=== PATIENT | female | born 1990 | race Caucasian/White ===

== ENCOUNTER 2023-02-05 00:20 | Emergency (ER) | payer OTHER, MEDICAID, SELFPAY ==
[2023-02-05] VITALS (81 sets, daily range): BP systolic 70–124; BP diastolic 41–101; PULSE 88–124; RESP 11–30; TEMP 36.8–37.9; O2SAT 88–100
--- NOTE | ~2023-02-05 | XR_ITS ---
EXAMINATION: XR chest 2V DATE: 02/05/2023 09:48 INDICATION: Sepsis. Fever. Hypotension. TECHNIQUE: Frontal and lateral views of the chest were obtained. COMPARISON: Chest single view 08/26/2015 FINDINGS: There is mild atelectasis in right perihilar region. No pleural effusion or pneumothorax. T he heart size is normal. There is sclerosis in left humeral head. There is sclerosis in right scapula . There is a right internal jugular port with tip at superior cavoatrial junction. There are surgical changes of the cervical spine. IMPRESSION: 1. Mild atelectasis in right perihilar region. 2. Sclerotic lesions of bone suspicious for metastatic breast cancer. Reviewed, dictated and finalized at location A.
--- NOTE | ~2023-02-05 | CT_ITS ---
EXAMINATION: CT brain wo con DATE: 02/05/2023 09:49 INDICATION: Altered mental status. TECHNIQUE: Computed tomography (CT) of the head was performed without intravenous contrast. The mA wa s adjusted according to patient size. Iterative reconstruction technique was employed. The dose-lengt h product was 983.67 mGy-cm. COMPARISON: None FINDINGS: There is no intracranial hemorrhage, acute infarction, or abnormal intracranial mass lesion . The ventricles are normal in size. The orbits are normal. The paranasal sinuses are clear. The mast oid air cells are normal. IMPRESSION: 1. Normal brain. Reviewed, dictated and finalized at location A. IMPRESSION: 1. Normal brain.
--- NOTE | 2023-02-05 01:02 | ED.AMS ---
HPI - Altered Mental Status General Chief Complaint: Altered Mental Status Stated Complaint: Septic Source: family and EMS Mode of arrival: ambulatory History of Present Illness HPI narrative: Patient is a 33 year old female with a significant PMH that presents today with altered mental status. She has a 6 history could be metastatic brain cancer and hip fracture and recent surgery on her neck. She was seen at [facility] last week for the surgery and they were found she also had the fractured hip. She has been treated with chemo month ago and did not get her most recent chemo treatment because of the surgery. She was sent home from that she only has a 14-year-old son at home to take care of her. She came with altered mental status and was found in the shower by her 14-year-old son unconscious and not know where she was. She was trembling when she came in was unresponsive. She had a blood pressure and was unstable in the ambulance on the way here. complaint: altered mental status Onset (ago): hour(s) Time: 23:00 Timing confirmed by: family member Severity: severe Consistency of symptoms: waxing and waning Context: change in medication and trauma Associated symptoms: malaise Related Data Allergies Allergy/AdvReac Type Severity Reaction Status Date / Time Penicillins Allergy Unknown Other Verified 02/05/23 00:32 Review of Systems Review of Systems: All systems reviewed & are unremarkable except as noted in HPI and below Constitutional: Constitutional: Reports as per HPI Eyes: Eyes: Reports as per HPI ENT: Reports as per HPI Cardiovascular: Cardiovascular: Reports no additional cardiovascular complaints Respiratory: Respiratory: Reports no additional respiratory complaints Gastrointestinal: Gastrointestinal: Reports no additional gastrointestinal complaints Musculoskeletal: Musculoskeletal: Reports no additional musculoskeletal complaints Neurologic: Reports as per HPI [facility] Family History Family History Other Family history of cardiovascular disease Social History Social History Smoking status: Never smoker Alcohol intake: never Exam Narrative: Patient was barely responsive on initial examination IV fluids run wide open and blood pressure increased to being stable, patient was still barely conscious not able to answer questions. After giving dose of Narcan she immediately became coherent and was able to answer questions and is speaking normally now. She is talking with family members now in speaking normal. Const: General: confusion Other: Was incoherient not responsive. HENMT: Head: normal to inspection Ears: external ears normal Face/Nose/Sinus: Normal external nose present Face and sinus: normal facial exam Eyes: Other: She was 1st for non dilated and nonreactive, after given narcan pupils became responsive Neck: Neck: normal visual inspection Chest: Chest palpation & inspection: normal inspection of the chest Resp: Effort & Inspection: normal respiratory effort Auscultation: clear to auscultation bilaterally Cardio: Rate: regular rate Rhythm: regular rhythm GI: GI Palp: Yes Soft to palpation Back/Spine/Pelvis: Back: no CVA tenderness Skin: General skin exam: normal color Rashes: no rashes Neuro: Other: patient was not oriented to person place or time initial evaluation, after given Narcan she is now oriented x3 Extrem: General: normal to inspection Course Reevaluation(s) Reevaluation #1: history given dose of Narcan patient became responsive and is able to be oriented x3 and is responding able to and responsive. Date: 02/05/23 Time: 01:17 Vital Signs Vital signs: Vital Signs Temperature 100.3 F H 02/05/23 00:35 Pulse Rate 124 H 02/05/23 00:35 Respiratory Rate 18 02/05/23 00:35 Blood Pressure 124/101 H
[2023-02-05] MEDS: NALOXONE HCL 0.4 MG/ML VIAL IV PUSH (01:10)
[2023-02-05] MEDS: SODIUM CHLORIDE 0.9% IV 1,000 ML 999 ML IV CONT (01:10)
--- NOTE | 2023-02-05 01:55 | PC.NURSE ---
Pt's mother information Cyndie [phone]
--- NOTE | 2023-02-05 08:00 | PC.NURSE ---
Patient's blood pressure is down to 77/67, erp is notified, verbal order for Continuous NS 100/hr ordered.
--- NOTE | 2023-02-05 08:10 | PC.NURSE ---
RN went in patient's room to start IV fluids, patient is in personal T-shirt, RN attempted to get patient changed into gown and she refused. Patient assisted with repositioning and bed and access blankets removed from under patient.
[2023-02-05] MEDS: SODIUM CHLORIDE 0.9% IV 1,000 ML 100 ML IV CONT (08:25)
--- NOTE | 2023-02-05 08:42 | PC.NURSE ---
Spoke with [facility] transfer line. Updated set of vitals and patient update.
--- NOTE | 2023-02-05 08:54 | ECG_ITS ---
Measurements Intervals [place] Rate: 95 P: 24 PA: 144 QRS: 19 QRSD: 99 T: 30 QT: 385 QTc: 484 Interpretive Statements SINUS RHYTHM Electronically Signed On 02-05-2023 17:12:49 CDT by Pepe Sawyer M.D.
[2023-02-05 09:11] LABS: Basophils Absolute Auto 0.03 K/mm3 (0.00-0.10); Basophils Percent Auto 0.4 % (0.0-1.0); Eosinophils Absolute Auto 0.29 K/mm3 (0.02-0.50); Eosinophils Percent Auto 4.1 % (1.0-6.0); Hemoglobin 7.6 g/dL (12.0-15.0); Immature Granulocyte Absolute 0.04 K/mm3 (0.00-0.00); Immature Granulocyte Percent A 0.6 % (0.0-0.0); Lymphocytes Absolute Auto 0.73 K/mm3 (1.10-4.50); Lymphocytes Percent Auto 10.4 % (18.0-42.0); Mean Corpuscular HGB Conc 31.7 g/dL (32.0-36.0); Mean Corpuscular Hemoglobin 28.9 pg (27.0-31.0); Mean Corpuscular Volume 91.3 fL (78.0-102.0); Mean Platelet Volume 10.2 fl (9.2-11.8); Monocytes Absolute Auto 0.57 K/mm3 (0.10-0.90); Monocytes Percent Auto 8.1 % (2.0-11.0); Neutrophils Absolute Auto 5.3 K/mm3 (1.7-7.2); Neutrophils Percent Auto 76.4 % (50.0-70.0); Platelet Count Result 179 K/mm3 (150-420); Red Blood Count 2.63 M/mm3 (4.20-5.40); Red Cell Distribution Width 18.4 % (11.6-14.4)
--- NOTE | 2023-02-05 09:12 | PC.NURSE ---
Cathryn Agee verified home medications over the phone. phone number is [phone]
--- NOTE | 2023-02-05 09:14 | ED.AMS ---
HPI - Altered Mental Status General Chief Complaint: Altered Mental Status Stated Complaint: Septic Time Seen by Provider: 02/05/23 09:14 Source: family and EMS Mode of arrival: ambulatory History of Present Illness HPI narrative: Patient was signed out to me by the night physician. Patient came in last night with CC of AMS. Patient is on high dose dilaudid at home and was given Narcan after which she became more alert. No other work ups were done at that time. Pt was resuscitated with 1L IVF for low BP. during my shift, pt's BP continues to be low, 90/56 manual. Reviewed vitals from last night revealed patient was hypotensive, tachycardic and had a temp of 100.3F on arrival. Patient has breast cancer, undergoing treatment, and has a port on the right side. Sepsis work ups started. MD complaint: altered mental status Severity: severe Associated symptoms: malaise Related Data Home Medications Medication Instructions Recorded Confirmed cyclobenzaprine 10 mg tablet 10 mg PO TID PRN Muscle Spasm 02/05/23 02/05/23 fentanyl 12 mcg/hr transdermal 12 mcg topical Q3-4D 02/05/23 02/05/23 patch fentanyl 75 mcg/hr transdermal 75 patch topical Q3-4D 02/05/23 02/05/23 patch gabapentin 600 mg tablet 600 mg PO TID 02/05/23 02/05/23 hydromorphone 8 mg tablet 8 mg PO Q6-8H PRN Pain 02/05/23 02/05/23 mirtazapine 15 mg tablet 15 mg PO HS 02/05/23 02/05/23 ondansetron HCl 8 mg tablet 8 mg PO Q8H PRN Nausea And Vomiting 02/05/23 02/05/23 pantoprazole 40 mg tablet,delayed 40 mg PO DAILY 02/05/23 02/05/23 release prochlorperazine maleate 10 mg 10 mg PO DAILY 02/05/23 02/05/23 tablet ramelteon 8 mg tablet 8 mg PO HS 02/05/23 02/05/23 venlafaxine 75 mg capsule,extended 75 mg PO DAILY 02/05/23 02/05/23 release 24 hr Allergies Allergy/AdvReac Type Severity Reaction Status Date / Time Penicillins Allergy Severe Anaphylaxis Verified 02/05/23 09:44 cinnamon Allergy Unknown Verified 02/05/23 09:44 Review of Systems Constitutional: Constitutional: Reports as per HPI and Reports no additional constitutional complaints Eyes: Eyes: Reports as per HPI and Reports no additional eye complaints ENT: Reports system reviewed and no additional complaints, except as documented and Reports as per HPI Cardiovascular: Cardiovascular: Reports as per HPI and Reports no additional cardiovascular complaints Respiratory: Respiratory: Reports as per HPI and Reports no additional respiratory complaints Gastrointestinal: Gastrointestinal: Reports as per HPI and Reports no additional gastrointestinal complaints Genitourinary: Genitourinary: Reports as per HPI Musculoskeletal: Musculoskeletal: Reports no additional musculoskeletal complaints and Reports as per HPI Integumentary/Breasts: Skin/Breast: Reports system reviewed and no additional complaints, except as docu and Reports as per HPI Neurologic: Reports system reviewed and no additional complaints, except as documented and Reports as per HPI Psychiatric: Psychiatric: Reports no additional psychiatric complaints and Reports as per HPI Endocrine: Endocrine: Reports no additional endocrine complaints and Reports as per HPI Hematologic/Lymphatic: Hematologic/Lymphatic: Reports no additional hematologic/lymphatic complaints and Reports as per HPI Allergic/Immunologic: Allergic/Immunologic: Reports no additional allergic/immunologic complaints and Reports as per HPI [facility] Family History Family History Other Family history of cardiovascular disease Social History Social History Smoking status: Never smoker Alcohol intake: never Exam Const: General: cooperative, comfortable, no acute distress, awake and average body habitus Orientation/consciousness: oriented to person HENMT: Head: normal to inspection Ears: hearing grossly normal bilaterally, external ears normal and TM's normal b
[2023-02-05] MEDS: LACTATED RINGERS 1,000 ML 999 ML IV CONT (09:17)
--- NOTE | 2023-02-05 09:17 | PC.NURSE ---
patient taken down to CT.
[2023-02-05 09:26] LABS: INR 1.1; Partial Thromboplastin Time 35.9 SEC (23.90-30.70); Prothrombin Time 11.8 Seconds (9.50-12.10)
--- NOTE | 2023-02-05 09:30 | PC.NURSE ---
RN spoke with mother to clarify allergy to penicillin, states when patient was a baby she swelled up and was covered in a rash.
[2023-02-05 09:32] LABS: Lactic Acid Reflex 0.6 mmol/L (0.4-2.0)
[2023-02-05 09:35] LABS: Alanine Aminotransferase 60 U/L (14-59); Albumin Level 2.7 g/dL (3.4-5.0); Alkaline Phosphatase 224 U/L (46-116); Anion Gap 10 mmol/L (8-16); Aspartate Amino Transferase 143 U/L (15-37); Bilirubin,Total 0.3 mg/dL (0.00-1.00); Blood Urea Nitrogen 13 mg/dL (7-18); CRP 4.9 mg/dL (0.0-0.9); Carbon Dioxide 25 mmol/L (21-32); Chloride 104 mmol/L (98-108); Estimated CRCL calculation 50 ml/min; Estimated Glomerular Filt Rate 37; Glucose 89 mg/dL (70-99); Osmolality Calculated 287 mOsm/kg (285-295); Potassium 4.1 mmol/L (3.5-5.1); Sodium 139 mmol/L (136-145); Total Protein 5.9 g/dL (6.4-8.2)
--- NOTE | 2023-02-05 09:49 | PC.NURSE ---
patient back in room from ct.
--- NOTE | 2023-02-05 11:15 | PC.NURSE ---
patient was able to urinate at this time. UA sent to lab, blood cultures have been drawn, RN to start antibiotics.
[2023-02-05] MEDS: CIPROFLOXACIN 400 MG/D5W 200ML 200 ML 200 MG IVPB (11:18)
[2023-02-05 11:29] LABS: Appearance Urine Clear (Clear); Bilirubin Urine Negative (Negative); Blood Urine 3+ (Negative); Color Urine Light Yellow (Yellow); Glucose Urine UA Negative (Negative); Ketones Urine Negative (Negative); Leukocyte Esterase Ur Negative LEU/UL (Negative); Nitrate Urine Negative (Negative); Protein Urine Trace (Negative); Specific Grav Ur 1.015 (1.010-1.020); Urobilinogen Urine 0.2 mg/dL (0.2-1.0)
[2023-02-05 11:33] LABS: Add Urine Microscopic? YES; Bacteria Urine Trace /hpf; Squamous Epithelial Cell Urine Rare /hpf (Few); WBC Urine 0-3 /hpf (0-3)
--- NOTE | 2023-02-05 12:10 | PC.NURSE ---
Vancomycin dosage not available down in ER. RN waiting on charge nurse to bring down from 2nd floor.
--- NOTE | 2023-02-05 12:50 | PC.NURSE ---
Patient moved to room 6. Placed in hospital bed. IV vancomycin brought down from 2nd floor, will start after patient gets settled.
[2023-02-05] MEDS: VANCOMYCIN 1,250 MG/NS 250 ML 1,250 MG/250 ML BAG 166.67 MG IVPB (12:56)
[2023-02-05] MEDS: VANCOMYCIN 1,000 MG/NS 250 ML 1,000 MG/250 ML BAG 250 MG IVPB (14:18)
--- NOTE | 2023-02-05 17:23 | PC.NURSE ---
PER ERP START D5/NS WHEN NS INFUSION IS FINISHED.
[2023-02-05] MEDS: DEXTROSE 5%/0.9% SOD CHL 1,000 ML 125 ML IV CONT (18:28)
--- NOTE | 2023-02-08 16:26 | PC.NURSE ---
Addendum entered by Deon Quiroz RN 02/08/23 16:43: DR MCCOY FAX # [phone] DR MCCOY RN # [phone] Original Note: PRELIMINARY AEROBIC BLOOD CULTURE RESULTS: ISOLATE 1: GRANULICATELLA ADIACENS. SUSCEPTIBILITY TESTING NOT ROUTINELY PERFORMED ON THIS ISOLATE. PRELIMINARY ANAEROBIC RESULTS: ISOLATE 1: GRAM POSITIVE COCCI ISOLATED IN ANAEROBIC BOTTLE ONLY. TO AWAIT C&S. PT WAS TRANSFERRED TO [facility] ROOM 19613-4. SPOKE WITH [facility], PT HAS BEEN DC HOME. CALLED DR DEY, HE IS LISTED PMD. SPOKE WITH RAZIA IN HIS OFFICE AND SHE REPORTS THEY HAVE NOT SEEN PT SINCE 2019. CALLED PERSON TO NOTIFY BEVERLEY, WHO REPORTS HE IS NO LONGER ASSOCIATED WITH PT. LEFT MESSAGE ON MOTHER-PARTH'S PHONE TO CONTACT ER IN AN ATTEMPT TO IDENTIFY PMD. MOTHER RETURNS CALL, REPORTS DR DEY IS PT PMD, HOWEVER ADVISED THAT SHE DOES NOT SEE HIM SINCE SHE HAS BEEN BEING TAKEN CARE OF AT [facility] FOR CANCER. MOTHER PROVIDES PT ONCOLOGIST INFORMATION. DR MCCOY [phone]. SPOKE WITH BENITO AT DR MCCOY'S OFFICE WHO PROVIDED FAX NUMBER AND DR MCCOY'S RN MARKUS'S PHONE NUMBER. RESULTS WERE FAXED TO [phone], CONFIRMATION WAS RECEIVED. CALLED SKYE APARICIO [phone] LEFT A MESSAGE ON HER EXTENSION WITH CALL BACK INFORMATION PROVIDED. MOTHER IS AWARE THAT THESE ARE PRELIMINARY, AND THIS RN CANNOT ACCESS TX AT [facility]. MOTHER ADVISED TO FOLLOW WITH DR MCCOY FOR FURTHER TX OF RESULTS, AND THAT THE FINAL RESULTS WILL NOT BE IN UNTIL 02/10. MOTHER REPORTS PT HAS A FOLLOW UP APPOINT ON 02/10 AT [facility] AND SHE WILL FOLLOW UP ON THE BLOOD CULTURE RESULTS AT THAT TIME. JOSE FROM DR MCCOY'S OFFICE RETURNS CALL TO CONFIRM RECEIPT OF CULTURE RESULTS, STATES PT HAS FOLLOW UP WITH [facility] ON 02/10 AT 1200. IF RESULTS HAVE NOT BEEN FAXED TO DR MCCOY BY TIME OF APPOINTMENT, THEY WILL CONTACT THIS ER FOR FINAL RESULTS TO TREAT PT.
--- NOTE | 2023-02-08 17:19 | PC.NURSE ---
JOSE FROM DR MCCOY'S OFFICE CALLS, REPORTING SHE DID NOT RECEIVE THE RESULTS. VERBAL RESULTS AND TX THAT WAS COMPLETED AT [facility] WERE PROVIDED OVER THE PHONE, WELL FAXED FOR A 2ND TIME.
--- NOTE | 2023-02-08 18:23 | PC.NURSE ---
PT CALLS REPORTING DR MCCOY'S OFFICE CALLED HER AND TOLD HER TO RETURN TO [facility] FOR ADMISSION FOR IV ABX. DR MCCOY'S OFFICE REPORTED PT DID NOT RECEIVE ABX WHILE IN PT AT [facility]. PT REPORTS SHE ACTUALLY DID RECEIVE IV ABX DURING HER STAY. PT REPORTS SHE IS FEELING MUCH BETTER, DENIES ANY FEVER. PT WAS NOT DC HOME WITH ANY ABX. PT IS TO RETURN CALL TO DR MCCOY'S EXCHANGE AND MAKE A DECISION TO WHAT SHE WOULD LIKE TO DO. PT REPORTS SHE HAS A FOLLOW UP IN 2 DAYS AT [facility].
--- NOTE | 2023-02-10 13:31 | PC.NURSE ---
FINAL BLOOD CULTURE REPORT FAXED OVER TO DR. MCCOY'S RN MARKUS AT [phone]. SEE PREVIOUS NOTE FROM 02/08/2023 ABOUT FOLLOW UP AND PLAN OF CARE FOR TREATMENT OF CULTURES.
--- NOTE | 2023-02-10 16:00 | PC.NURSE ---
DR MCCOY NURSE MARKUS CALLED BACK AND STATES THEY RECIEVED THE BLOOD CULTURES, PATIENT IS AT THE OFFICE AND THEY ARE TREATING ACCORDINGLY.
--- NOTE | 2023-02-12 12:51 | PC.NURSE ---
final [facility] culture reports x2 reviewed. granulicatella adiacens, staphylococcus warneri, and actinomyces neuii reported. pt was transferred to [facility]. [facility] marketing operations coordinator contacted...pt discharged on 02/08. pt contacted et states no abx sent on discharge. has appt with oncology on 02/14. states blood cultures at [facility] were negative. declines further treatment for this report at this time.
== END 2023-02-05 18:45 | disposition short-term general hospital (02) ==
PROVIDERS: Emergency Provider Emergency Medicine; PCP Internal Medicine
DX: A41.9 Sepsis, unspecified organism (principal); R65.21 Severe sepsis with septic shock; N17.9 Acute kidney failure, unspecified; R41.82 Altered mental status, unspecified; C50.919 Malignant neoplasm of unspecified site of unspecified female breast; C79.51 Secondary malignant neoplasm of bone; Z79.899 Other long term (current) drug therapy
CPT/HCPCS: 70450; 71046; 80053; 81001; 83605; 85025; 85610; 85730; 86140; 87040; 87147; 87186; 93005; 96361; 96365; 96366; 96367; 96375; 99291; J0744; J2310; J3370; J7030; J7042; J7120

== ENCOUNTER 2023-07-04 07:06 | Emergency (ER) | payer OTHER, SELFPAY ==
[2023-07-04 07:06] VITALS: BP 108/80; PULSE 93; RESP 16; TEMP 36.9; O2SAT 100
--- NOTE | 2023-07-04 08:05 | ED.LOWEXIN ---
HPI - Extremity Injury (Lower) General Chief Complaint: Extremity Injury, Lower Stated Complaint: right knee pain Time Seen by Provider: 07/04/23 07:15 Source: patient Mode of arrival: ambulatory History of Present Illness HPI Narrative: Patient is a 33-year-old female with a significant past medical history presents today for right knee pain. Patient states that she has bone cancer and she states has spread to out her foam system through multiple bones. She says she also has a broken hip from this metastatic cancer. She has she also has a left shoulder fracture well. She is worrying that her right knee has fractured because she fell on it and her need. She said it is very painful. She does wear a fentanyl patch at home. complaint: knee injury Onset (ago): hour(s) Injury: Right: knee Type of Injury: blunt Place: home Severity: severe Severity scale (1-10): 8 Relieving factors: nothing Exacerbating factors: nothing Context: fall and direct blow Other symptoms: none Treatments prior to arrival: cold therapy and NSAIDS Related Data Home Medications Medication Instructions Recorded Confirmed mirtazapine 15 mg tablet 15 mg PO HS 02/05/23 07/04/23 ondansetron HCl 8 mg tablet 8 mg PO Q8H PRN Nausea And Vomiting 02/05/23 07/04/23 pantoprazole 40 mg tablet,delayed 40 mg PO DAILY 02/05/23 07/04/23 release apixaban 5 mg tablet (Eliquis) 5 mg PO BID 07/04/23 07/04/23 scopolamine base 1 mg over 3 days 1 patch transdermal Q3D 07/04/23 07/04/23 transdermal patch venlafaxine 37.5 mg 37.5 mg PO DAILY 07/04/23 07/04/23 capsule,extended release 24 hr zolpidem 5 mg tablet 5 mg PO HS PRN Insomnia 07/04/23 07/04/23 Allergies Allergy/AdvReac Type Severity Reaction Status Date / Time Penicillins Allergy Severe Anaphylaxis Verified 07/04/23 07:43 cinnamon Allergy Unknown Verified 07/04/23 07:43 Review of Systems Review of Systems: All systems reviewed & are unremarkable except as noted in HPI and below Constitutional: Constitutional: Reports as per HPI and Reports no additional constitutional complaints Eyes: Eyes: Reports no additional eye complaints ENT: Reports system reviewed and no additional complaints, except as documented Cardiovascular: Cardiovascular: Reports no additional cardiovascular complaints Respiratory: Respiratory: Reports no additional respiratory complaints Gastrointestinal: Gastrointestinal: Reports no additional gastrointestinal complaints Genitourinary: Genitourinary: Reports no additional female genitourinary complaints Musculoskeletal: Musculoskeletal: Reports as per HPI, Reports arthralgias and Reports joint swelling Comments: Right knee Integumentary/Breasts: Skin/Breast: Reports system reviewed and no additional complaints, except as docu Neurologic: Reports system reviewed and no additional complaints, except as documented Psychiatric: Psychiatric: Reports no additional psychiatric complaints Endocrine: Endocrine: Reports no additional endocrine complaints Hematologic/Lymphatic: Hematologic/Lymphatic: Reports no additional hematologic/lymphatic complaints Allergic/Immunologic: Allergic/Immunologic: Reports no additional allergic/immunologic complaints [facility] Family History Family History Other Family history of cardiovascular disease Social History Social History Smoking status: Never smoker Alcohol intake: never Exam Const: General: healthy appearing Nutritional Appearance: well nourished Orientation/consciousness: patient oriented x3 HENMT: Head: normal to inspection Ears: external ears normal Face/Nose/Sinus: Normal external nose present Face and sinus: normal facial exam Mouth: Yes Normal oral and palatal mucosa present Eyes: Conjunctivae: conjunctivae normal Pupils: Equal, round and reactive pupils present EOM: EOMs intact bilaterally
[2023-07-04 08:28] VITALS: BP 102/78; PULSE 90; RESP 16; O2SAT 99
== END 2023-07-04 08:32 | disposition home or self-care (01) ==
PROVIDERS: Emergency Provider Family Medicine; PCP Internal Medicine
DX: S83.91XA Sprain of unspecified site of right knee, initial encounter (principal); W19.XXXA Unspecified fall, initial encounter; C79.51 Secondary malignant neoplasm of bone
CPT/HCPCS: 73562; 99283

== ENCOUNTER 2024-06-08 14:50 | Emergency (ER) | payer OTHER, SELFPAY ==
--- OUTSIDE RECORDS SUMMARY | 2024-06-08 14:52 | XMS_ITS | Data Portability ---
Author Organization [facility], [address] [facility] ([place]) Address [address] 4[address] [place] [address] Care Team Providers Care Safety Officer Name Role Phone MAXWELL DEY Primary Care Provider PERLA ENGLAND Hematology/Oncology [phone] Assessment Encounter Date Assessment Date Assessment LastModified by Organization Details LastModified Time 04/13/2024 04/13/2024 HISTORY OF PRESE NT ILLNESS: Ms. Calderon is a pleasant 34-year-old female with a history of breast cancer diagnosed at age 29 who follows at [facility], is here for a second opinion and to establish care for management of the same. She has an extensive treatment history at [facility]. - She initially had a palpable left breast mass at the age of 29. Bilateral diagnostic mammogram on 03/23/2019 showed a spiculated mass in the left breast with abnormal lymph nodes (in the upper-outer quadrant). - 04/10/2020: Diagnostic mammogram and ultrasound showed an irregular, spiculated 2.3 cm mass with spiculations nearly 3.6 cm, with two enlarged lymph nodes, biopsy of which confirmed invasive ductal carcinoma grade 3, ER+ (7/8), AK+ (7/8), HER2 1+ by IHC. - She declined neoadjuvant chemotherapy in April 2019. She had seen Dr. Theresa Perera. - 05/31/2019: She underwent bilateral mastectomy with axillary lymph node excision, confirmed 3 cm IDC grade 3, negative LVI, negative margins, with DCIS grade 3, with 0 of 5 lymph nodes negative, T2 N0 M0. Right breast with no malignancy. She underwent immediate bilateral manager cosmetics reconstruction. - 06/15/2019: Oncotype DX 20. Declined adjuvant chemotherapy and AI+OS. -06/2019: Initiated on tamoxifen but discontinued after 4-5 months due to terrible mood changes. -01/10/2020: Developed local recurrence biopsy proven on left breast core biopsy at 3 o c lock invasive ductal carcinoma grade 2, ER+ (8/8), AK+ (7/8), HER2 1+ by IHC. =- 01/17/2020: Had left breast excision which confirmed a 1.1 cm invasive ductal carcinoma, grade 2 of 3, deep margins. She declined chemo at that time and agreed to start Zoladex for ovarian suppression. - 03/2020: Completed adjuvant chest wall and lymph nodes radiation. - 04/07/2020: Initiated on adjuvant anastrozole and Zoladex changed to q.3 months. Later switched to exemestane in June 2020 due to musculoskeletal symptoms. Exemestane was later discontinued from August through November. Eventually again started taking anastrozole in February 2021. Agreed to take exemestane again in May 2021, again discontinued. - Unfortunately, she eventually developed metastatic breast cancer in July 2021 with brain mets - cerebral, cerebellar hemispheres, dural metastasis, bone metastasis. - Underwent WBRT and palliative RT to thoracic and lumbar spine, completed on 09/11/2021. - 08/21/2021: Biopsy of right iliac bone showed metastatic carcinoma, ER strongly positive, AK strongly positive, HER2 1+, Ki-67 of 10%. Zoladex and letrozole were restarted on 09/17/2021, delaying the addition of abemaciclib until end of September 2021 due to multiple hospitalizations. Later switched to ribociclib on November 09, 2021, dose reduced to 400 mg due to diarrhea. Later, Zoladex switched to Lupron due to insurance changes. She continued on letrozole. -09/2021: PE, Extensive RLL PE- started on Eliquis. - Completed palliative XRT in May 2022 to the right posterior ribs for pain control. Stopped letrozole on August 02, 2022. Started Xeloda 1500 mg b.i.d., 7 days on, 7 days off, in July 2022. - 10/13/2022: T12 compression fracture, s/p IR kyphoplasty. - Later treatment was switched to Enhertu in December 2022. Cycle 1 complicated by colitis, ANC mango of 0.3. - 01/27/2023: Underwent C5 corpectomy due to pathologic fracture of C5 due to extensive involvement of metastatic disease and spinal cord compression. Enhertu dose reduced. - She had completed 15 cycles of Enhertu until it showed progression in the liver. - 01/16/2024: Treatment switched to capivasertib plus fulvestrant on 12/27/2023. Genomic testing- BRCA negative in 04/2019. VUS in NTHL1, PMS2. INTERVAL HISTORY: Today Yanet returns for followup prior to cycle [address] scans have shown concerns for progressive disease. Patient denied any nausea, abdominal pain, chest pain, or shortness of breath. She continues to work. She does complain of diarrhea, having to take Imodium occasionally to 8 capsules per day. This is intermittent. She has not tried Lomotil yet. She occasionally has blood in stools. REVIEW OF SYSTEMS: CONST: No fevers or chills. Fatigue. RESP: No shortness of breath. CV: No chest pain. GI: Diarrhea. : No urinary symptoms or frequency. MSK: Back pain, mostly in the hip and lower back, not all the time. Uses Extra Strength Tylenol. She was extremely sensitive to hydrocodone-APAP. Reviewed past medical history, surgical history, family history, social history. No changes except as noted. PAST MEDICAL HISTORY: Breast cancer, bone metastases, brain metastases, musculoskeletal issues, colitis as above. PAST SURGICAL HISTORY: , ectopic , ACL meniscus repair, appendectomy, double mastectomy, multiple plastic surgeries on breasts. FAMILY HISTORY: Invasive ductal carcinoma in grandmother in her 70s. 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 No alcohol use. PHYSICAL EXAMINATION: CONST: Overall is in usual health and no acute distress. RESP: Chest clear to auscultation. Respirations even and unlabored. CV: Heart regular rate and rhythm without murmur. GI: Abdomen soft without mass, tenderness, or hernia. PSYCH: Appropriate mood and affect. NEURO: No speech difficulty. Alert and orientated to person, place, and time. Reviewed pertinent diagnostic tests, lab work, and imaging. These were reviewed with the patient. IMAGIN03/26/2024 - CT CAP: Impression: 1. Interval progression of extensive hepatic metastatic disease 2. Progression of osseous metastatic disease. A bone scan has been ordered for today. 3. Areas of pleural parenchymal scarring in each lung, similar to the prior examinations. Addendum: Comparison is made to a previous outside CT scan 12/03/2023. There has been interval increase in the hepatic metastatic disease. For reference, a left hepatic lobe lesion at image 190 measures up to 1.8 cm. Previously this lesion measured up to 8 mm. A lesion at image 179 measures 1.9 cm. Previously this measured [address] appearance of the osseous metastatic disease is similar. Please refer to the bone scan performed on 04-17. ASSESSMENT AND PLAN: 1. Metastatic ER+/AK+/HER2- left breast cancer to the brain, bones. - Yanet has a complicated previous history. Her recent CT scans have been compared to previous scans done at [facility] in November. Unfortunately, she has progressive disease in the liver. Bone disease appears relatively stable. Will arrange for ultrasound-guided liver biopsy MARISSA to check for [facility] NGS studies to look for other targeted mutations. - She has progressed on several lines of treatment. We discussed about capecitabine. Per documentation, she was on it for at least 2 months; however, patient does not recall starting on it due to insurance issues. We will clarify this with [facility]. If she has not tried it, will start with capecitabine 1500 mg b.i.d. day 1 to 14, q. 21-day cycle. If she has been exposed to it in the past, she will benefit from IV sacituzumab govitecan day 1 to 8, q. 21-day cycle. She is leaning towards the capecitabine if possible given poor tolerance to IV infusions and also limitations with her job. - Regarding her diarrhea, check C. diff on the stool specimen today. If negative, will arrange for Lomotil in addition to Imodium. - Await CBC, CMP, CA 15-3 today. - Will arrange for a nurse navigator visit for chemo teaching and DPOA. She lives by herself. Has family around. This is her second visit and I have not met her family yet. I advised her to have her DPOA, advanced directives in place as well. She reports her sister (Monalisa) or Mom (Cyndie) will be her DPOA. - Arrange for IV Zometa q.4 weeks for the extensive bone metastasis. - Discussed about oxycodone 7.5/APAP 325 mg every 6 hours as needed for pain. - RTC with cycle 1 of treatment as soon as possible. I personally spent a total of >40 minutes on the patient on this date of service including both [id number]-[id number] and qkh-itig-ud-face time excluding any separately reportable services. Time was spent in reviewing previous records, confirming this with the patient again. The patient verbalized understanding of plan of care and will call us sooner if needed with any questions or concerns. aml leandro Not available 04/24/2024 07:41:29 05/17/2024 05/17/2024 HISTORY OF PRESE NT ILLNESS: Ms. Calderon is a pleasant 34-year-old female with a history of breast cancer diagnosed at age 29 who follows at [facility], is here for a second opinion and to establish care for management of the same. She has an extensive treatment history at [facility]. - She initially had a palpable left breast mass at the age of 29. Bilateral diagnostic mammogram on 03/23/2019 showed a spiculated mass in the left breast with abnormal lymph nodes (in the upper-outer quadrant). - 04/10/2020: Diagnostic mammogram and ultrasound showed an irregular, spiculated 2.3 cm mass with spiculations nearly 3.6 cm, with two enlarged lymph nodes, biopsy of which confirmed invasive ductal carcinoma grade 3, ER+ (7/8), AK+ (7/8), HER2 1+ by IHC. - She declined neoadjuvant chemotherapy in April 2019. She had seen Dr. Theresa Perera. - 05/31/2019: She underwent bilateral mastectomy with axillary lymph node excision, confirmed 3 cm IDC grade 3, negative LVI, negative margins, with DCIS grade 3, with 0 of 5 lymph nodes negative, T2 N0 M0. Right breast with no malignancy. She underwent immediate bilateral manager cosmetics reconstruction. - 06/15/2019: Oncotype DX 20. Declined adjuvant chemotherapy and AI+OS. -06/2019: Initiated on tamoxifen but discontinued after 4-5 months due to terrible mood changes. -01/10/2020: Developed local recurrence biopsy proven on left breast core biopsy at 3 o c lock invasive ductal carcinoma grade 2, ER+ (8/8), AK+ (7/8), HER2 1+ by IHC. - 01/17/2020: Had left breast excision which confirmed a 1.1 cm invasive ductal carcinoma, grade 2 of 3, deep margins. She declined chemo at that time and agreed to start Zoladex for ovarian suppression. - 03/2020: Completed adjuvant chest wall and lymph nodes radiation. - 04/07/2020: Initiated on adjuvant anastrozole and Zoladex changed to q.3 months. Later switched to exemestane in June 2020 due to musculoskeletal symptoms. Exemestane was later discontinued from August through November. Eventually again started taking anastrozole in February 2021. Agreed to take exemestane again in May 2021, again discontinued. - Unfortunately, she eventually developed metastatic breast cancer in July 2021 with brain mets - cerebral, cerebellar hemispheres, dural metastasis, bone metastasis. - Underwent WBRT and palliative RT to thoracic and lumbar spine, completed on 09/11/2021. - 08/21/2021: Biopsy of right iliac bone showed metastatic carcinoma, ER strongly positive, AK strongly positive, HER2 1+, Ki-67 of 10%. Zoladex and letrozole were restarted on 09/17/2021, delaying the addition of abemaciclib until end of September 2021 due to multiple hospitalizations. Later switched to ribociclib on November 09, 2021, dose reduced to 400 mg due to diarrhea. Later, Zoladex switched to Lupron due to insurance changes. She continued on letrozole. -09/2021: PE, Extensive RLL PE- started on Eliquis. - Completed palliative XRT in May 2022 to the right posterior ribs for pain control. Stopped letrozole on August 02, 2022. Started Xeloda 1500 mg b.i.d., 7 days on, 7 days off, in July 2022. - 10/13/2022: T12 compression fracture, s/p IR kyphoplasty. - Later treatment was switched to Enhertu in December 2022. Cycle 1 complicated by colitis, ANC mango of 0.3. - 01/27/2023: Underwent C5 corpectomy due to pathologic fracture of C5 due to extensive involvement of metastatic disease and spinal cord compression. Enhertu dose reduced. - She had completed 15 cycles of Enhertu until it showed progression in the liver. - 01/16/2024: Treatment switched to capivasertib plus fulvestrant on 12/27/2023. Genomic testing- BRCA negative in 04/2019. VUS in NTHL1, PMS2. PAST TREATMENT: 1. 05/2019: Bilateral mastectomy with axillary lymph node dissection. 2. 06/2019: Tamoxifen started discontinued in 4-5 months. 3. 12/2019: Recurrent disease confirmed on excision. Started Zoladex for ovarian suppression. 4. 03/2020: Adjuvant chest wall/radiation completed. 5. 04/07/202005/2021: Failed adjuvant anastrozole, exemestane July 2021 brain mets, s/p WBRT, palliative RT to thoracic and spine. 6. 10/2021: Initiated on ribociclib, letrozole. 7. 05/2022: Palliative XRT to right posterior ribs. 8. 07/2022: Xeloda 7 days on, 7 days off. 9. 12/2022: Enhertu. 10. 01/16/2024: Capivasertib plus fulvestrant. 11. 03/2024: Progression of disease confirmed on imaging. INTERVAL HISTORY: Today Yanet returns for follow-up visit. She started taking capecitabine two weeks ago and had severe nausea with it. She had two ER visits. She was given IV fluids. Zofran and Compazine did not help. Reglan helped. She stopped the medicine at her 14-day chica. She continues to have some bone pain, for which oxycodone/APAP helps. She continues to work. Her main pain is around the left shoulder, lower back pain which moves up front like a band. She takes two tabs of oxycodone/APAP which usually helps her. REVIEW OF SYSTEMS: CONST: No fevers or chills. Fatigue. RESP: No shortness of breath. CV: No chest pain. GI: Nausea as above. : No urinary symptoms or frequency. MSK: Back pain, mostly in the hip and lower back, not all the time. Uses Extra Strength Tylenol. She was extremely sensitive to hydrocodone-APAP. Reviewed past medical history, surgical history, family history, social history. No changes except as noted. PAST MEDICAL HISTORY: Breast cancer, bone metastases, brain metastases, musculoskeletal issues, colitis as above. PAST SURGICAL HISTORY: , ectopic , ACL meniscus repair, appendectomy, double mastectomy, multiple plastic surgeries on breasts. FAMILY HISTORY: Invasive ductal carcinoma in grandmother in her 70s. 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 No alcohol use. PHYSICAL EXAMINATION: CONST: Overall is in usual health and no acute distress. ECOG PS is 1. RESP: Chest clear to auscultation. Respirations even and unlabored. CV: Heart regular rate and rhythm without murmur. GI: Abdomen soft without mass, tenderness, or hernia. PSYCH: Appropriate mood and affect. NEURO: No speech difficulty. Alert and orientated to person, place, and time. Reviewed pertinent diagnostic tests, lab work, and imaging. These were reviewed with the patient. IMAGIN03/26/2024 - CT CAP: Impression: 1. Interval progression of extensive hepatic metastatic disease 2. Progression of osseous metastatic disease. A bone scan has been ordered for today. 3. Areas of pleural parenchymal scarring in each lung, similar to the prior examinations. =Addendum: Comparison is made to a previous outside CT scan 12/03/2023. There has been interval increase in the hepatic metastatic disease. For reference, a left hepatic lobe lesion at image 190 measures up to 1.8 cm. Previously this lesion measured up to 8 mm. A lesion at image 179 measures 1.9 cm. Previously this measured [address] appearance of the osseous metastatic disease is similar. Please refer to the bone scan performed on 04-17. 05/10/2024 CT CAP: Impression: 1. No evidence of aortic dissection or other acute aortic syndrome. 2. No CT evidence of post hepatic biopsy consultation. 3. No acute finding of the thoracic or lumbar spine. 4. Extensive metastatic disease throughout the liver and skeleton. ASSESSMENT AND PLAN: 1. Metastatic ER+/AK+/HER2- left breast cancer to the brain, bones, progressed on multiple lines of treatment. 2. 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 Repeat MRI brain in 3-4 months. 3. Bone metastasis. 4. Chemotherapy-relat ed nausea. 5. Cancer-related pain. - Yanet struggled with capecitabine. On further discussion, she believes she has taken capecitabine and also records confirm that. We will discontinue capecitabine at this time as she has poor tolerance and also had progressed on it previously. - I recommended IV sacituzumab govitecan day 1, 8, q. 21-day cycle until any disease progression or unacceptable side effects. Discussed about myelosuppression, GI toxicity, iatrogenic potential, electrolyte imbalances, etc. Will obtain prior authorization and will see her soon to start the treatments MARISSA. - She will continue on IV Zometa q.4 weeks for extensive bone metastases for now. - We also discussed about the potential need for looking into clinical trials. - [facility] NGS studies have been requested on the repeat liver biopsy which confirmed metastatic adenocarcinoma to the liver with breast primary. HER2 was 0. Hopefully, she will have additional actionable mutations on it. - RTC with cycle 1 with CBC, CMP I personally spent a total of 40 minutes on the patient on this date of service including both mmdp-wu-vhiw and ntk-givz-rz-face time excluding any separately reportable services. The patient verbalized understanding of plan of care and will call us sooner if needed with any questions or concerns. aml anayani Not available 05/21/2024 08:17:01 Plan of Treatment Reminders Order Date Submit Date Provider Last Modified By Organization Details Last Modified Time Details Appointments None recorded. Lab None recorded. Referral None recorded. Procedures None recorded. Surgeries None recorded. Imaging None recorded. Medication Orders olanzapine 5 mg tablet 2024 025 leandro [id number], [address], [place], [address], 12:50:03 fulvestrant 250 mg/5 mL intramuscul ar syringe 2023 024 [email or web address] 1 [id number], [address], [place], [address], 5 10:27:00 Patient TargetsNo targets recorded. Patient InstructionsNo instructions recorded. Reason for Referral None Reported. Results Created Date Observation Date Name Description Value Unit Range Abnormal Flag Note LastModifiedBy Organization Detail LastModifiedTime 04/13/2004/13/2024 CBC w/ auto diff CBC with differential Not Available [facility] - [facility] [address], [address], 04/13/2024 11:59:07 04/13/20 24 04/13/2024 CBC w/ auto diff WBC 4.9 K/uL 3.8-11 .2 Not Available [facility] [address] [place] [address], [id number], 04/13/2024 11:59:07 04/13/20 24 04/13/2024 CBC w/ auto diff RBC 4.03 M/uL 3.92-5 .10 Not Available [facility] [address] [place] [address], [id number], 04/13/2024 11:59:07 04/13/20 24 04/13/2024 CBC w/ auto diff HGB 11.4 g/dL 11.8-1 5.3 low Not Available [facility] [address] [place] [address], [id number], 04/13/2024 11:59:07 04/13/20 24 04/13/2024 CBC w/ auto diff HCT 34.1 % 36.5-4 4.8 low Not Available [facility] [address] [place] [address], [id number], 04/13/2024 11:59:07 04/13/20 24 04/13/2024 CBC w/ auto diff MCV 84.6 fL 80.0-9 9.0 Not Available [facility] [address] [place] [address], [id number], 04/13/2024 11:59:07 04/13/20 24 04/13/2024 CBC w/ auto diff MCH 28.3 pg 25.5-3 3.6 Not Available [facility] [address] [place] [address], [id number], 04/13/2024 11:59:07 04/13/20 24 04/13/2024 CBC w/ auto diff MCHC 33.4 g/dL 32.0-3 6.0 Not Available [facility] [address] [place] [address], [id number], 04/13/2024 11:59:07 04/13/20 24 04/13/2024 CBC w/ auto diff RDW-SD 40.2 fL 35.1 - 46.3 Not Available [facility] [address] [place] [address], [id number], 04/13/2024 11:59:07 04/13/20 24 04/13/2024 CBC w/ auto diff plt 279 K/uL 130-40 0 Not Available [facility] [address] [place] [address], [id number], 04/13/2024 11:59:07 04/13/20 24 04/13/2024 CBC w/ auto diff MPV 9.0 fL 9.3-12 .8 low Not Available [facility] [address] [place] [address], [id number], 04/13/2024 11:59:07 04/13/20 24 04/13/2024 CBC w/ auto diff sreekanth% 59.0 % not estab Not Available [facility] [address] [place] [address], [id number], 04/13/2024 11:59:07 04/13/20 24 04/13/2024 CBC w/ auto diff lym% 20.2 % not estab Not Available [facility] [address] [place] [address], [id number], 04/13/2024 11:59:07 04/13/20 24 04/13/2024 CBC w/ auto diff mono% 9.3 % not estab Not Available [facility] [address] [place] [address], [id number], 04/13/2024 11:59:07 04/13/20 24 04/13/2024 CBC w/ auto diff eos% 9.1 % not estab Not Available [facility] [address] [place] [address], [id number], 04/13/2024 11:59:07 04/13/20 24 04/13/2024 CBC w/ auto diff baso% 2.0 % not estab Not Available [facility] [address] [place] [address], [id number], 04/13/2024 11:59:07 04/13/20 24 04/13/2024 CBC w/ auto diff abs sreekanth 2.9 K/uL 1.8-7. 5 Not Available [facility] [address] [place] [address], [id number], 04/13/2024 11:59:07 04/13/20 24 04/13/2024 CBC w/ auto diff abs lym 1.0 K/uL 1.1-3. 3 low Not Available [facility] [address] [place] [address], [id number], 04/13/2024 11:59:07 04/13/20 24 04/13/2024 CBC w/ auto diff abs mono 0.5 K/uL 0.1-1. 0 Not Available [facility] [address] [place] [address], [id number], 04/13/2024 11:59:07 04/13/20 24 04/13/2024 CBC w/ auto diff abs eos 0.5 K/uL 0.0-0. 7 Not Available [facility] [address] [place] [address], [id number], 04/13/2024 11:59:07 04/13/20 24 04/13/2024 CBC w/ auto diff abs baso 0.1 K/uL 0.0-0. 2 Not Available [facility] [address] [place] [address], [id number], 04/13/2024 11:59:07 04/13/20 24 04/13/2024 CBC w/ auto diff imm. gran % 0.4 % 0-5 Not Available [facility] [address] [place] [address], [id number], 04/13/2024 11:59:07 04/13/20 24 04/13/2024 CBC w/ auto diff NRBC % 0.0 % 0.0-0. 2 Not Available [facility] [address] [place] [address], [id number], 04/13/2024 11:59:07 04/13/20 24 04/13/2024 vitam in D, 25-hy droxy , total , serum vitamin D 25-hydroxy totl 26.0 NG/mL 30.0-8 0.0 low Less than 20 ng/mL Defic iency 20-29 ng/mL Insuf ficie ncy 30-80 ng/mL Optim al Great er than 80 ng/mL Possi ble toxic ity Not Available [facility] [address] [place] [address], [id number], 04/13/2024 14:54:44 04/13/20 24 04/13/2024 CMP, serum or plasm a comp. met. panel Not Available [facility] [address] [place] [address], [id number], 04/13/2024 15:47:55 04/13/20 24 04/13/2024 CMP, serum or plasm a sodium 140 mmol/ L 136-14 6 Not Available [facility] [address] [place] [address], [id number], 04/13/2024 15:47:55 04/13/20 24 04/13/2024 CMP, serum or plasm a potassium 4.8 mmol/ L 3.5-5. 1 Not Available [facility] [address] [place] [address], [id number], 04/13/2024 15:47:55 04/13/20 24 04/13/2024 CMP, serum or plasm a chloride 105 mmol/ L 98-110 Not Available [facility] [address] [place] [address], [id number], 04/13/2024 15:47:55 04/13/2017 0404/13/2024 CMP, serum or plasm a CO2 26 mEq/L 20-32 Not Available [facility] [address] [place] [address], [id number], 04/13/2024 15:47:55 04/13/20 24 04/13/2024 CMP, serum or plasm a anion gap 14 mmol/ L 10-22 Not Available [facility] [address] [place] [address], [id number], 04/13/2024 15:47:55 04/13/20 24 04/13/2024 CMP, serum or plasm a glucose 79 mg/dL 70-100 Not Available [facility] [address] [place] [address], [id number], 04/13/2024 15:47:55 04/13/20 24 04/13/2024 CMP, serum or plasm a calcium 10.6 mg/dL 8.4-10 .4 high Not Available [facility] [address] [place] [address], [id number], 04/13/2024 15:47:55 04/13/20 24 04/13/2024 CMP, serum or plasm a total protein 6.9 g/dL 6.4-8. 3 Not Available [facility] [address] [place] [address], [id number], 04/13/2024 15:47:55 04/13/20 24 04/13/2024 CMP, serum or plasm a albumin 5.0 g/dL 3.5-5. 3 Not Available [facility] [address] [place] [address], [id number], 04/13/2024 15:47:55 04/13/20 24 04/13/2024 CMP, serum or plasm a ALP 99 U/L 44 - 127 Not Available [facility] [address] [place] [address], [id number], 04/13/2024 15:47:55 04/13/20 24 04/13/2024 CMP, serum or plasm a AST (SGOT) 26 U/L 10-40 Not Available [facility] [address] [place] [address], [id number], 04/13/2024 15:47:55 04/13/20 24 04/13/2024 CMP, serum or plasm a total bilirubin 0.2 mg/dL 0.2-1. 0 Not Available [facility] [address] [place] [address], [id number], 04/13/2024 15:47:55 04/13/20 24 04/13/2024 CMP, serum or plasm a ALT (SGPT) 20 U/L 8-35 Not Available [facility] [address] [place] [address], [id number], 04/13/2024 15:47:55 04/13/20 24 04/13/2024 CMP, serum or plasm a BUN 23 mg/dL 7-21 high Not Available [facility] [address] [place] [address], [id number], 04/13/2024 15:47:55 04/13/20 24 04/13/2024 CMP, serum or plasm a creatinine 0.8 mg/dL 0.7-1. 3 Not Available [facility] [address] [place] [address], [id number], 04/13/2024 15:47:55 04/13/20 24 04/13/2024 CMP, serum or plasm a GFR(non-afri can niuean) 86 Not Available [facility] [address] [place] [address], [id number], 04/13/2024 15:47:55 04/13/20 24 04/13/2024 CMP, serum or plasm a GFR() 104 (HANDER IN JESSICA KIDNE Y DISEA SE HAS A GFR LESS THAN 60 ML/SC N/1.7 3 MM FOR A PERIO D OF THREE MONTH S OR MORE. ) Not Available [facility] [address] [place] [address], [id number], 04/13/2024 15:47:55 04/13/20 24 04/13/2024 ca 15-3, serum Ca 15-3 248.5 U/mL <0.5-3 1.3 high This test is perfo rmed on a Sieme ns Atell ica uriel zer. Since there are not exist ing stand rajesh refer ence units , users shoul d not make gavin rison s betwe en metho ds. Not Available [facility] [address], [address], 04/13/2024 15:47:57 05/09/19 25 05/11/2024 SJS SURGI SEBLE PATHO LOGY path report [facility] atory Medic ine [address] [place] [address] [place] [address] Telep montse: , exten jessica 07 Patho logy Repor t Surgi seble Patho logy Repor t Name: OG RAYMOND EA N Speci men #: [id number] Age: [id number] (Age: 34) Locat ion: [facility] Sex: F Proce dure Date: 2024 Hospi sarai #: [id number] Date Recei melissa: 2024 Date Repor destiny: 2024 Provi pat: ARCHA DOV SIMMONS ART PA-C Sourc e: Liver , left, needl e biops y Clini seble Histo ry: Histo ry of breas t cance r FINAL DIAGN OSIS: Liver , ultra sound -guid ed needl e biops y: -[place] stati c adeno carci noma consi stent with breas t prima ry origi n. Diagn osis Comme nt: Immun ohist ochem ical stain s revea l the malig nant cells are posit shira for cytok erati n AE1/A E3, CK7, GATA3 , estro gen sprinkling truck driver tor, and proge stero ne sprinkling truck driver tor and have focal posit shira stain ing for mamma globi n. The malig nant cells are negat shira for BRST- 2, CK20, and HER2 (scor e 0). The findi ngs suppo rt the diagn osis of metas tatic adeno carci noma consi stent with breas t prima ry origi n. Gross Descr iptio n: Recei melissa in forma lowell, label ed with a patie nt label and not furth er desig nated , are 3 less than 0.[address] cores of white -mares tissu e, each 0.7-0 .8 cm in lengt h. Also recei melissa are 2 touch prepa ratio n slide s. The speci men submi tted in casse tte 1. Gross exami natio n (when appli cable ), inter preta tion, and sign out were perfo rmed at [facility], [address] [place] [address], [place] [address] . All immun ohist ochem ical and histo chemi seble tests were devel oped by and perfo rmed at [facility] , [address] [place] [address], [place] [address] . All tests repor destiny here have not been clear ed or appro melissa by the U.S. Food and Drug Admin istra tion (FDA) . This labor atory is regul ated under CLIA as quali fied to perfo rm high- compl exity testi ng. These tests are used for clini seble purpo ses. They shoul d not be regar ded as inves tigat ional or for resea rch. Posit shira and negat shira contr ols show appro priat e react ivity . Intra opera tive Diagn osis: Liver , needl e biops y, touch prepa ratio n immed iate evalu ation for adequ acy: -Epis ode #1, passe s #12: Adequ ate (Patr margie bryant MD). The immed iate onsit e evalu ation was perfo rmed and inter prete d at [facility] [place] 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 New numbne ss on left side of mouth and bottom lip for 6-8 months COMPAR SALVATORE: MRI brain . TECHNI QUE: This examin ation includ es T1-concha ghted images pre- and postco ntrast as well as T2-concha ghted, FLAIR, gradie nt-ech o, and diffus ion weight ed images . 15 mL of Dotare m gadoli nium were inject ed at the [facility]'s port, withou t incide nt. FINDIN GS: A 1 cm focus of chroni c hemosi talisha staini ng or superf icial sidero sis along the cortex of the right occipi sarai lobe is stable compar ed to the prior MRI from . There are scatte red smalle r puncta te foci of hypoin tense suscep tibili ty signal as eviden ce for old microh emorrh ages elsewh ere in the bilate ral cerebr al hemisp heres that are also stable compar ed to the prior MRI from . These foci of chroni c blood produc ts are nonspe cific in etiolo gy, perhap s repres enting posttr eatmen t change s and/or treate d metast ases. There is no abnorm al enhanc ement associ ated with these foci. Previo usly noted abnorm al leptom eninge al enhanc ement seen on prior MRI in the left greate r than right process engineering intern al audito ry canal and along the trigem inal nerves is not as well seen curren tly. Within limits of routin e brain MRI techni que, there may be some residu al enhanc ement in the left process engineering intern al audito ry canal as can be seen on series 9 image 77. There is no new or enlarg ing site of abnorm al intrac ranial enhanc ement. There are mild patchy T2/fla ir hyperi ntense signal abnorm alitie s in the cerebr al white matter that are nonspe cific but appear simila r to prior MRI, likely railroad cook ior mass effect and/or chroni c microa ngiopa thy. The ventri cular system is within normal limits . Basila r cister ns are preser melissa. There is a partia lly empty sella config uratio n. The major intrac ranial vascul ar flow voids are intact . Orbits are unrema rkable . There is mild inflam matory mucosa l thicke kathya in the fronta l sinuse s, ethmoi d air cells, and spheno id sinuse s. No sinus fluid levels . There is nonspe cific left mastoi d fluid, simila r to the prior MRI. Right mastoi d air cells are clear. There are multif ocal T1 hypoin tense, enhanc ing osseou s lesion s in the calvar ium, skull base, and partia lly imaged upper cervic al spine, in keepin g with osseou s metast atic diseas e, as seen previo usly. Postop erativ e change s in the cervic al spine are partia lly imaged . Extrac ranial soft tissue s are unrema rkable . IMPRES JESSICA: 1. Previo usly noted leptom eninge al enhanc ement in the basila r cister ns/int ernal audito ry canals appear s decrea sed, perhap s with some residu al enhanc ement in the left process engineering intern al audito ry canal but otherw ise not well seen curren tly. This may repres ent interv al improv ement in leptom eninge al metast atic diseas e. 2. Stable multif ocal chroni c hemosi talisha staini ng in the suprat entori al brain, possib ly posttr eatmen t effect s and/or treate d metast ases. No enhanc ing intrap arench ymal brain metast ases. 3. Unchan ged osseou s metast atic diseas e in the calvar ium, skull base, and upper cervic al spine. 4. No new or progre ssive site of metast atic diseas e in the head. 5. No new or acute intrac ranial abnorm ality. Electr onical ly signed in Kelly cribe by: SERA MENJIVAR MD on:03/26/2024 10:24 AM cc: Page PAGE 1 of [facility] 1 [email or web address] Sc Only - [facility] [address] [place] [address], [id number], 04/02/2024 15:33:07 03/26/20 24 03/26/2024 CT, abdom en + pelvi s, w/ contr ast [facility] [address] [place] [address] Teleph one Name: Maxx Hoang [id number] Exam Date: 2023 Age: 34 Physic allison: MD Gloria, Anjali engel : 1989 Examin ation: CT CHEST/ ABD/PE L W CT OF THE CHEST, ABDOME N AND PELVIS HISTOR Y: Metast atic breast cancer . Osseou s and liver metast atic diseas e. Status post chemot herapy and radiat ion therap y. Follow -up examin ation. TECHNI QUE: CT of the chest, abdome n and pelvis was perfor med with oral and IV contra st admini strati on. 100 ml of Isovue -370 was inject ed throug h port cathet er withou t eviden ce of advers e reacti on. Automa destiny exposu re contro l was used as a dose optimi zation techni que for the examin ation. COMPAR SALVATORE: 23, 2021 CT chest: There is a right- sided Infuse -a-Por t cathet er with tip in the right atrium . The heart is normal in size withou t a perica rdial effusi on. Bilate ral mastec mayte change s with recons tructi on noted. There is no suspic ious lympha denopa thy seen in the chest. Scarri ng along the right aspect of the medias tinum appear s unchan ged. There are a few scatte red areas of septal thicke kathya in each lung, unchan ged. No new or enlarg ing pulmon shai nodule is seen. CT abdome n and pelvis : There has been interv al progre ssion of hepati c metast atic diseas e. This includ es develo pment of multip le new lesion s and enlarg ement of previo usly seen lesion s. For refere nce in the left hepati c lobe at image 193 there is a 2 cm lesion that previo usly measur ed 8 mm. No new biliar y duct dilata tion. The gallbl adder appear s normal . The spleen is normal in size. The pancre as and adrena l glands appear normal . There is no hydron ephros is. The append ix is surgic ally absent . There is no bowel obstru ction. There is no free air or free fluid. The abdomi nal aorta is normal in calibe r. No pathol ogical ly enlarg ed lympha denopa thy is seen in the abdome n or pelvis . The uterus and adnexa are unrema rkable . Extens shira diffus e osseou s metast atic diseas e is seen. This appear s increa sed. Old pathol ogic fractu re in the right acetab ulum seen. No new pathol ogic fractu re is seen. IMPRES JESSICA: 1. Interv al progre ssion of extens shira hepati c metast atic diseas e 2. Progre ssion of osseou s metast atic diseas e. A bone scan has been ordere d for today. 3. Areas of pleura l parenc hymal scarri ng in each lung, simila r to the prior examin ations . Electr onical ly signed in Kelly cribe by: DEREK Ramsay on:03/26/2024 12:42 PM cc: Page PAGE 1 of [facility] 1 [email or web address] [facility] Only - [facility] [address] [place] [address], [id number], 04/02/2024 15:33:07 03/26/20 24 03/26/2024 CT, chest , w/ contr ast [facility] [place] [address] [facility] [place] [address] Teleph one Name: Maxx Hoang [id number] Exam Date: 2023 Age: 34 Physic allison: MD Gloria, Anjali engel : 1989 Examin ation: CT CHEST/ ABD/PE L W CT OF THE CHEST, ABDOME N AND PELVIS HISTOR Y: Metast atic breast cancer . Osseou s and liver metast atic diseas e. Status post chemot herapy and radiat ion therap y. Follow -up examin ation. TECHNI QUE: CT of the chest, abdome n and pelvis was perfor med with oral and IV contra st admini strati on. 100 ml of Isovue -370 was inject ed throug h port cathet er withou t eviden ce of advers e reacti on. Automa destiny exposu re contro l was used as a dose optimi zation techni que for the examin ation. COMPAR SALVATORE: 23, 2021 CT chest: There is a right- sided Infuse -a-Por t cathet er with tip in the right atrium . The heart is normal in size withou t a perica rdial effusi on. Bilate ral mastec mayte change s with recons tructi on noted. There is no suspic ious lympha denopa thy seen in the chest. Scarri ng along the right aspect of the medias tinum appear s unchan ged. There are a few scatte red areas of septal thicke kathya in each lung, unchan ged. No new or enlarg ing pulmon shai nodule is seen. CT abdome n and pelvis : There has been interv al progre ssion of hepati c metast atic diseas e. This includ es develo pment of multip le new lesion s and enlarg ement of previo usly seen lesion s. For refere nce in the left hepati c lobe at image 193 there is a 2 cm lesion that previo usly measur ed 8 mm. No new biliar y duct dilata tion. The gallbl adder appear s normal . The spleen is normal in size. The pancre as and adrena l glands appear normal . There is no hydron ephros is. The append ix is surgic ally absent . There is no bowel obstru ction. There is no free air or free fluid. The abdomi nal aorta is normal in calibe r. No pathol ogical ly enlarg ed lympha denopa thy is seen in the abdome n or pelvis . The uterus and adnexa are unrema rkable . Extens shira diffus e osseou s metast atic diseas e is seen. This appear s increa sed. Old pathol ogic fractu re in the right acetab ulum seen. No new pathol ogic fractu re is seen. IMPRES JESSICA: 1. Interv al progre ssion of extens shira hepati c metast atic diseas e 2. Progre ssion of osseou s metast atic diseas e. A bone scan has been ordere d for today. 3. Areas of pleura l parenc hymal scarri ng in each lung, simila r to the prior examin ations . Electr onical ly signed in Kelly alicia by: DEREK Ramsay on:03/26/2024 12:42 PM cc: Page PAGE 1 of [facility] 1 [email or web address] Sc Only - [facility] [address] [place] [address], [id number], 04/02/2024 15:33:07 03/26/20 24 03/26/2024 NM, bone scan, whole body [facility] [address] [facility] [place] [address] Teleph one [phone] Name: Maxx Hoang [id number] Exam Date: 2023 Age: 34 Physic allison: MD Gloria, Anjali engel : 1989 Examin ation: NM BONE SCAN WHOLE BODY Examin ation: Bone Scinti graphy (whole body) Date of study: [facility] er 2023. Radiop harmac eutica l: 24.8 mCi Tc-99m MDP via a right chest port IV site Histor y: Metast atic breast cancer to brain and bones. Restag ing. Techni que: Anteri or and railroad cook ior whole- body sweep images were obtain ed in additi on to latera l views of the calvar ium. Compar salvatore: Bone scan [facility] er 2022 is availa ble for compar salvatore. The scinti graphi c images were correl ated with the follow ing additi onal imagin g studie s: CT chest abdome n pelvis [facility] er 2023 and MR brain [facility] er 2023. Findin gs: There is extens shira a tracer avid osseou s metast asis involv ing the skull, spine, ribs, scapul a, humeri , femurs and pelvis . The overal l extent of diseas e appear s relati vely simila r. There does appear to be increa sed activi ty within the right iliac bone. No defini te new osseou s lesion s. Impres jessica: Extens shira osseou s metast asis involv ing the axial and append icular skelet on. There is mild progre ssion of diseas e since bone scan on [facility] er 2022 best visual ized within the right hemisa jennifer. Electr onical ly signed in Kelly cribe by: LARISA Bryant MD on:03/26/2024 4:07 PM cc: Page PAGE 1 of [facility] 1 [email or web address] Wi Only - [facility] [address] [place], [address], 04/02/2024 15:33:08 04/12/20 24 03/26/2024 CT, abdom en + pelvi s, w/ contr ast [facility] [address] [place] [address] Teleph one [phone] Name: Maxx Hoang [id number] Exam Date: 2023 Age: 34 Physic allison: MD Gloria, Anjali engel : 1989 Examin ation: CT CHEST/ ABD/PE L W Addend um Addend um: Compar salvatore is made to a previo us outsid e CT scan 024. There has been interv al increa se in the hepati c metast atic diseas e. For refere nce, a left hepati c lobe lesion at image 190 measur es up to 1.8 cm. Previo usly this lesion measur ed up to 8 mm. A lesion at image 179 measur es 1.9 cm. Previo usly this measur ed [address] appear ance of the osseou s metast atic diseas e is simila r. Please refer to the bone scan perfor med on 04-17. Electr onical ly signed in Kelly cribe by: DEREK Ramsya on: 4 4:11 PM cc: Page PAGE 1 of [facility] 1 ------ ------ ------ ------ ------ End of Addend um Report ------ ------ ------ ------ ------ [place] [address] [place] [address] Teleph one [phone] Name: Maxx Hoang [id number] Exam Date: 2023 Age: 34 Physic allison: MD Gloria, Anjali engel : 1989 Examin ation: CT CHEST/ ABD/PE L W CT OF THE CHEST, ABDOME N AND PELVIS HISTOR Y: Metast atic breast cancer . Osseou s and liver metast atic diseas e. Status post chemot herapy and radiat ion therap y. Follow -up examin ation. TECHNI QUE: CT of the chest, abdome n and pelvis was perfor med with oral and IV contra st admini strati on. 100 ml of Isovue -370 was inject ed throug h port cathet er withou t eviden ce of advers e reacti on. Automa destiny exposu re contro l was used as a dose optimi zation techni que for the examin ation. COMPAR SALVATORE: 23, 2021 CT chest: There is a right- sided Infuse -a-Por t cathet er with tip in the right atrium . The heart is normal in size withou t a perica rdial effusi on. Bilate ral mastec mayte change s with recons tructi on noted. There is no suspic ious lympha denopa thy seen in the chest. Scarri ng along the right aspect of the medias tinum appear s unchan ged. There are a few scatte red areas of septal thicke kathya in each lung, unchan ged. No new or enlarg ing pulmon shai nodule is seen. CT abdome n and pelvis : There has been interv al progre ssion of hepati c metast atic diseas e. This includ es develo pment of multip le new lesion s and enlarg ement of previo usly seen lesion s. For refere nce in the left hepati c lobe at image 193 there is a 2 cm lesion that previo usly measur ed 8 mm. No new biliar y duct dilata tion. The gallbl adder appear s normal . The spleen is normal in size. The pancre as and adrena l glands appear normal . There is no hydron ephros is. The append ix is surgic ally absent . There is no bowel obstru ction. There is no free air or free fluid. The abdomi nal aorta is normal in calibe r. No pathol ogical ly enlarg ed lympha denopa thy is seen in the abdome n or pelvis . The uterus and adnexa are unrema rkable . Extens shira diffus e osseou s metast atic diseas e is seen. This appear s increa sed. Old pathol ogic fractu re in the right acetab ulum seen. No new pathol ogic fractu re is seen. IMPRES JESSICA: 1. Interv al progre ssion of extens shira hepati c metast atic diseas e 2. Progre ssion of osseou s metast atic diseas e. A bone scan has been ordere d for today. 3. Areas of pleura l parenc hymal scarri ng in each lung, simila r to the prior examin ations . Electr onical ly signed in Kelly cribe by: DEREK Ramsay on:03/26/2024 12:42 PM cc: Page PAGE 1 of [facility] 1 anayani Sc Only - [facility] Rad[facility] [address] [place], [address], 04/13/2024 10:37:13 04/12/20 24 03/26/2024 CT, chest , w/ contr ast [facility] [address] [place] [address] Teleph one Name: Maxx Hoang [id number] Exam Date: 2023 Age: 34 Physic allison: MD Gloria, Anjali engel : 1989 Examin ation: CT CHEST/ ABD/PE L W Addend um Addend um: Compar salvatore is made to a previo us outsid e CT scan 024. There has been interv al increa se in the hepati c metast atic diseas e. For refere nce, a left hepati c lobe lesion at image 190 measur es up to 1.8 cm. Previo usly this lesion measur ed up to 8 mm. A lesion at image 179 measur es 1.9 cm. Previo usly this measur ed [address] appear ance of the osseou s metast atic diseas e is simila r. Please refer to the bone scan perfor med on 04-17. Electr onical ly signed in Kelly cribe by: DEREK Ramsay on: 4 4:11 PM cc: Page PAGE 1 of [facility] 1 ------ ------ ------ ------ ------ End of Addend um Report ------ ------ ------ ------ ------ [facility] [address] [place] [address] Teleph qjy Name: Maxx Hoang [id number] Exam Date: 2023 Age: 34 Physic allison: MD Gloria, Anjali engel : 1989 Examin ation: CT CHEST/ ABD/PE L W CT OF THE CHEST, ABDOME N AND PELVIS HISTOR Y: Metast atic breast cancer . Osseou s and liver metast atic diseas e. Status post chemot herapy and radiat ion therap y. Follow -up examin ation. TECHNI QUE: CT of the chest, abdome n and pelvis was perfor med with oral and IV contra st admini strati on. 100 ml of Isovue -370 was inject ed throug h port cathet er withou t eviden ce of advers e reacti on. Automa destiny exposu re contro l was used as a dose optimi zation techni que for the examin ation. COMPAR SALVATORE: 23, 2021 CT chest: There is a right- sided Infuse -a-Por t cathet er with tip in the right atrium . The heart is normal in size withou t a perica rdial effusi on. Bilate ral mastec mayte change s with recons tructi on noted. There is no suspic ious lympha denopa thy seen in the chest. Scarri ng along the right aspect of the medias tinum appear s unchan ged. There are a few scatte red areas of septal thicke kathya in each lung, unchan ged. No new or enlarg ing pulmon shai nodule is seen. CT abdome n and pelvis : There has been interv al progre ssion of hepati c metast atic diseas e. This includ es develo pment of multip le new lesion s and enlarg ement of previo usly seen lesion s. For refere nce in the left hepati c lobe at image 193 there is a 2 cm lesion that previo usly measur ed 8 mm. No new biliar y duct dilata tion. The gallbl adder appear s normal . The spleen is normal in size. The pancre as and adrena l glands appear normal . There is no hydron ephros is. The append ix is surgic ally absent . There is no bowel obstru ction. There is no free air or free fluid. The abdomi nal aorta is normal in calibe r. No pathol ogical ly enlarg ed lympha denopa thy is seen in the abdome n or pelvis . The uterus and adnexa are unrema rkable . Extens shira diffus e osseou s metast atic diseas e is seen. This appear s increa sed. Old pathol ogic fractu re in the right acetab ulum seen. No new pathol ogic fractu re is seen. IMPRES JESSICA: 1. Interv al progre ssion of extens shira hepati c metast atic diseas e 2. Progre ssion of osseou s metast atic diseas e. A bone scan has been ordere d for today. 3. Areas of pleura l parenc hymal scarri ng in each lung, simila r to the prior examin ations . Electr onical ly signed in Kelly cribe by: DEREK Ramsay on:03/26/2024 12:42 PM cc: Page PAGE 1 of [facility] anayani Sc Only - [facility] [address] [place] [address], [id number], 04/13/2024 10:37:14 05/14/19 25 12/29/2023 CT, head, w/o contr ast No observ ation record ed. [email or web address] Not Available 2024 13:41:51 05/17/19 25 05/09/2024 US gd targe destiny liver [facility] [address] [facility], [facility] [place] [address] IR PROCED URE NOTE - ULTRAS OUND GUIDED LIVER MASS BIOPSY Pre op diagno sis: Liver metast asis Post Op Diagno sis: same Proced ure: Ultras ound-g uided left lobe of the liver biopsy Primar y provid er: Aston Rollins rt, PA-C Superv ising provid er: Chris Richard M.D. Assist ant: none Anesth esia: Local - 0.1% lidoca ine IV consci ous sedati on was admini stered and monito red by a qualif ied interv ention al radiol ogy nurse under superv ision of the interv ention al physic allison assist ant. There was contin uous monito ring of vital signs includ ing pulse oximet ry, end-ti yanna CO2, and EKG. Total intras ervice or face-t o-face sedati on time: 16 minute s. Techni que /Findi ngs: Proced ure and risks were discus sed with patien t in detail includ ing risks of bleedi ng, liver injury , bile leak, injury to adjace nt organs , pneumo thorax , possib le need for transf usions or surger y etc. Inform ed consen t was obtain ed. Prelim inary ultras ound perfor med. A midlin e approa ch was chosen . Suitab le skin site was marked . The site was preppe d and draped in steril e fashio n. All elemen ts of gertrude l steril e kimberlee r techni que as well as all elemen ts of steril e ultras ound techni que were utiliz ed during this proced ure. Timeou t was perfor med. Using real-t gabriela ultras ound guidan ce local anesth etic was admini stered down to the liver capsul e. Ultras ound guidan ce was then used to guide an introd ucer needle into the left lower liver and throug h the left lobe of the liver mass. The stylet te was then remove d from the introd ucer needle and a 18-gau ge [employer] n needle was then advanc ed under real-t gabriela ultras ound guidan ce throug h the introd ucer needle and then activa destiny with biopsy specim en obtain ed. A blunt stylet te was placed into the introd ucer and the biopsy specim en was remove d. The bladde r stylet te was then remove d from the introd ucer and the 18-gau ge [employer] n needle was then advanc ed under real-t gabriela ultras ound guidan ce throug h the introd ucer needle for second time and then activa destiny with biopsy specim en obtain ed. Specim en adequa cy was confir med by a pathol ogist. Pressu re was applie d at the site with the transd ucer for a few minute s. Post biopsy imagin g demons trated no eviden ce of fluid or hemorr dez at the site. Steril e dressi ng was applie d. Patien t was transf erred back to the holdin g room in satisf actory condit ion for routin e postbi opsy observ ation. Compli cation s: none Estima destiny Blood Loss: nil Specim ens remove d: 18-gau ge left lobe of the liver mass biopsy x2. Condit ion: good Impres jessica: Proced ure note for ultras ound-g uided liver mass biopsy . PLAN: 1. Discha rge to home when recove ry room criter ia is met. 2. Follow -up pathol ogy result s. IR follow -up as needed . The [facility] radiol ogist, Dr. Richard, was presen t for all critic al portio ns of the proced ure, has review ed the images , and agrees with the conten t of this report . Dictat ed By: PURVI Trent on 8:48 PM Ordere d By: ANJALI ENGLAND Electr onical ly Signed By: Chris Richard MD on 8:32 AM Interp reted By: PURVI Trent, 8:48 PM INTERFACE Wi Only - [facility] [address] [place], [address], 05/17/2024 09:33:29 Result Notes None recorded. Problems Name Problem SNOMED Code Status Onset Date Resolution Date Notes Provider Name and Address Organization Details Recorded Time Dental abscess 405178303 Active Enzo horton MD [address] [place] [address], [id number] , [facility] 4 14:24:14 Malignant neoplasm of upper outer quadrant of breast 992613858 Active 024 Keesha Wilkinson [place], [facility] 4 09:48:21 Iron deficiency anemia 34665675 Active 024 Keesha Truter [place], [facility] 4 09:47:27 Pulmonary embolism 91470513 Active 024 Carmina Gladieux null, [facility] 4 15:54:00 Diarrhea 33052374 Active 024 Keesha Truter [facility] 4 11:36:32 Vitamin D deficiency 59410542 Active 024 Keesha Truter [facility] 4 11:17:25 Metastatic malignant neoplasm to brain 07954963 Active 024 July Drake null, [facility] 4 11:46:50 Metastatic malignant neoplasm to liver 99077664 Active 024 Carmina Gladieux [facility] 4 11:49:16 Metastatic malignant neoplasm to bone 95526335 Active 025 Carmina Gladieux null, [facility] 5 10:53:40 Chemotherapy -induced nausea and vomiting 69175690 Active 025 Keesha Truter [facility] 5 12:26:48 Allergic contact dermatitis 430060898 Active 024 Gael Ling MD [address] [place] [address], [phone] [place] [address] 4 14:16:06 Problem Notes None recorded. Procedures Surgical History None recorded. Imaging Results Imaging Date Name Status LastModified by [facility] Details LastModified Time 03/26/2024 MRI, brain, w/wo contrast completed [email or web address] [facility] [address] [place] [address], [id number], 04/02/2024 15:33:07 03/26/2024 CT, abdomen + pelvis, w/ contrast completed [email or web address] [facility] [address] [place] [address], [id number], 04/02/2024 15:33:07 03/26/2024 CT, chest, w/ contrast completed [email or web address] [facility] [address] [place] [address], [id number], 04/02/2024 15:33:07 03/26/2024 NM, bone scan, whole body completed [email or web address] [facility] [address] [place] [address], [id number], 04/02/2024 15:33:08 03/26/2024 CT, abdomen + pelvis, w/ contrast completed anayani [facility] [address] [place] [address], [id number], 04/13/2024 10:37:13 03/26/2024 CT, chest, w/ contrast completed anayani [facility] [address] [place] [address], [id number], 04/13/2024 10:37:14 12/29/2023 CT, head, w/o contrast [place] [id number] Information not available 05/14/2024 13:41:51 05/09/2024 US gd targeted liver BX completed INTERFACE Sc Only - [facility] [address] [place], [address], 05/17/2024 09:33:29 Procedure Notes None recorded. Medical Equipment None Reported. Allergies Allergen ID Allergen Name Allergen Category Reaction Reaction Severity Criticality Documentation Date Start Date Code Code System Note Provider Name and Address Organization Details Recorded Time 0101443 Product containin g penicilli n and antibioti c (product) medicatio n anaphylax is Not available Not available 05/25/20232022 21568 05 SNOMED React ion: Anaph ylaxi s; Not Available Not Available Not Available 2077085 cinnamon bark food,medi cation anaphylax is Not available Not available 05/25/20232022 68445 3 RxNorm React ion: Anaph ylaxi s; Not Available Not Available Not Available Medications Name Sig Start Date Stop Date Status Note LastModified by Organization Details LastModified Time fentanyl 50 mcg/hr transdermal patch 03/02 completed Not Available Not Available Not Available venlafaxine ER 37.5 mg capsule,ext ended release 24 hr Take 1 capsule every day by oral route. 2023 active Not Available Not Available Not Avai labjoni clindamycin HCl 300 mg capsule TAKE 1 CAPSULE BY MOUTH 3 TIMES A DAY for 10 days 03/02 completed Not Available Not Available Not Available trazodone 50 mg tablet Take 1 tablet every day by oral route at bedtime. 2023 active Not Available Not Available Not Avai lable azithromyci n 250 mg tablet TAKE 2 TABLETS BY MOUTH TODAY, THEN TAKE 1 TABLET DAILY FOR 4 DAYS DIRECTED active Not Available Not Available No t Available hydrocodone 5 mg-acetamin ophen 325 mg tablet TAKE 1 TABLET BY MOUTH EVERY 6 HOURS NEEDED FOR ACUTE PAIN, LESS THAN 3 DAYS SUPPLY active Not Available Not Available No t Available ondansetron HCl 8 mg tablet TAKE 1 TABLET BY MOUTH EVERY 8 HOURS NEEDED FOR NAUSEA OR VOMITING. active Not Available Not Available No t Available prednisone 20 mg tablet TAKE 3 TABLETS BY MOUTH DAILY FOR 5 DAYS, THEN 2 TABS DAILY FOR 5 DAYS, THEN 1 TAB DAILY FOR 5 DAYS 03/02 completed Not Available Not Available Not Available olanzapine 5 mg tablet Take 5 mg the night before chemo and then on day 2, 3, 4 after chemo. 2024 active Not Available Not Available Not Avai labjoni capecitabin e 500 mg tablet Take 3-tabs (1500mg) twice daily on days 1-14 every 21 days. 05/17 completed Not Available Not Available Not Available lidocaine-p rilocaine 2.5 %-2.5 % topical cream APPLY TOPICALLY NEEDED FOR PAIN. active Not Available Not Available No t Available pantoprazol e 40 mg tablet,jazmine yed release Take 1 tablet every day by oral route. 2023 active Not Available Not Available Not Avai lable dexamethaso ne 4 mg tablet TAKE 2 TABLETS BY MOUTH 2 TIMES A WEEK ON DAYS 2 AND 3 AFTER CHEMO 03/02 completed Not Available Not Available Not Available zolpidem 5 mg tablet TAKE 1 TABLET BY MOUTH NIGHTLY NEEDED FOR SLEEP 03/02 completed Not Available Not Available Not Available mirtazapine 15 mg tablet TAKE 1 TABLET BY MOUTH EVERY DAY AT NIGHT 03/02 completed Not Available Not Available Not Available fentanyl 25 mcg/hr transdermal patch PLACE 1 PATCH ON THE SKIN EVERY THIRD DAY. 03/02 completed Not Available Not Available Not Available oxycodone-a cetaminophe n 7.5 mg-325 mg tablet Take 1 tablet every 6 hours by oral route as needed for 30 days, for cancer induced pain. 2023 active Not Available Not Available Not Avai lable scopolamine 1 mg over [address] PATCH ON THE SKIN EVERY THIRD DAY. 03/02 completed Not Available Not Available Not Available Vitamin D2 1,250 mcg (50,000 unit) capsule 50K units Q weekly x 6 weeks and then 1000 IU daily 2023 active Not Available Not Available Not Avai lable fentanyl 75 mcg/hr transdermal patch PLACE 1 PATCH ON THE SKIN EVERY THIRD DAY. 03/02 completed Not Available Not Available Not Available fulvestrant 250 mg/5 mL intramuscul ar syringe Inject 10 mL every month by intramusc ular route. 04/27 completed Not Available Not Available Not Available fentanyl 12 mcg/hr transdermal patch PLACE 1 PATCH ON THE SKIN EVERY THIRD DAY. 03/02 completed Not Available Not Available Not Available venlafaxine 03/02 completed Not Available Not Available Not Available trazodone 03/02 completed Not Available Not Available Not Available pantoprazol e active Not Available Not Available Not Available dexamethaso ne sodium phosphate (PF) 10 mg/mL injection solution Give 10mg/1ml now 2023 active Not Available Not Available Not Avai lable Eliquis 5 mg tablet TAKE 1 TABLET BY MOUTH TWICE A DAY active Not Available Not Available No t Available Eliquis 04/24 completed Not Available Not Available Not Available Truqap 200 mg tablet Take 400 mg BID X 4 days followed by 3 days off every week 04/13 completed Not Available Not Available Not Available Vitals Date Recorded Heart rate Oxygen saturation Oxygen saturation in Arterial blood by Pulse oximetry Respiratory rate Body temperature Body weight Systolic blood pressure Diastolic blood pressure Provider Name and Address Organization Details Last Updated DateTime 12/20/202 4 80 /min 98 % 98 % 18 /min 98 [degF] 63845.0 1 g 126 mm[Hg] 70 mm[Hg] Martine Coleman [facility] 4 10:38:20 Date Recorded Heart rate Oxygen saturation Oxygen saturation in Arterial blood by Pulse oximetry Heart rate Respiratory rate Body temperature Body weight Systolic blood pressure Diastolic blood pressure Provider Name and Address Organization Details Last Updated DateTime 5 115 /min 99 % 99 % 115 /min 18 /min 96.9 [degF] 83266.1 4 g 152 mm[Hg] 88 mm[Hg] Keesha Truter [facility] 5 11:55:18 Social History None recorded. Functional Status None recorded. Mental Status None recorded. Family History Nothing Reported. Medical History No medical history recorded. Gynecological HistoryNo gynecological history recorded. Obstetrics History GPAL:G 0 P 0 0 0 0 Immunizations Vaccine Type Date Status Note Provider Nam e and Address Organization Details Recorded Time COVID-19, mRNA, LNP-S, PF, 30 mcg/0.3 mL dose 11/27/2020 completed Keesha Truter [facility] 03/02/2024 09:32:47 COVID-19, mRNA, LNP-S, PF, 30 mcg/0.3 mL dose 12/18/2020 completed Keesha Truter [facility] 03/02/2024 09:32:47 Tdap 09/15/2012 [facility] 09:32:47 Past Encounters Encounter ID Performer Location Encounter Start Date Encounter Closed Date Diagnosis/Indication Diagnosis SNOMED-CT Code Diagnosis ICD10 Code Diagnosis Note [id number] Gael Ling MD Ur[facility]) [address] [place] [address] 11/11/2023 14:00:21 11/11/2023 14:28:10 Allergic contact dermatitis 778167925 L23.9 [id number] [facility] [address] [place] [address] 12/28/2023 14:12:22 12/28/2023 16:26:51 Dental abscess 527963889 K04.7 [id number] Perla England MD [address] [address] ([place]) [address] [place] [address],[address] [place] [address] 03/02/2024 09:16:53 03/02/2024 13:39:54 Malignant neoplasm of upper outer quadrant of breast 209356330 C50.412 Z17.0 [id number] Carmina Gladieux [address] ([place]) [address] [place] [address],[address] [place] [address] 03/16/2024 15:07:21 03/20/2024 16:43:56 Malignant neoplasm of upper outer quadrant of breast 933902429 C50.412 Z17.0 [id number] Perla England MD [address] [facility] ([place]) [address] [place] [address],[address] [place] [address] 04/13/2024 10:23:46 04/13/2024 14:32:47 Metastatic malignant neoplasm to brain 97162518 C50.912 C79.31 Diarrhea 62407602 R19.7 [id number] Perla England MD [address] [facility] ([place]) [address] [place] [address],[address] [place] [address] 05/17/2024 11:49:34 05/17/2024 12:38:08 Malignant neoplasm of upper outer quadrant of breast 511717103 C50.412 Z17.0 Metastatic malignant neoplasm to brain 80353972 C50.912 C79.31 Metastatic malignant neoplasm to liver 25197891 C78.7 Metastatic malignant neoplasm to bone 14499252 C79.51 Chemothera py-induced nausea and vomiting 54050838 R11.2 T45.1X5A Health Concerns Section Related Observation LastModified by Organization Detai ls LastModified Time None Recorded Concern Status LastModified by Organization Details LastModified Time None Recorded Advance Directives Directive None Recorded Payers Encounter Date Sequence Insurance Name Policy Number Policy Nash Covered Member ID Nash Member ID Guarantor Name 03/16/2024 1 [employer] [id number] Yanet N Marinacci [id number] Yanet N Marinacci 04/13/2024 1 [employer] [id number] Yanet N Marinacci [id number] Yanet N Marinacci 05/17/2024 1 [employer] [id number] Yanet N Marinacci [id number] Yanet N Marinacci Notes Date Note Type Note Provider Name and Address Organization Details Recorded Time 05/17/2024 text/html [place] Oral ChemoRep orted bypatient.Are you taking your oral chemotherapy exactly as prescribedYes Have you missed any doses of your oral chemotherapy since your last visit to this officeNo Do you have questions or concerns about your oral chemotherapy treatmentNo Fully active; no restrictionsYes Minimal activity/work restrictionsNo Able to perform all self care but no work activities; up about >50% of the dayNo Limited self-care; in bed/chair > 50% of the dayNo Unable to perform self-care; confined to bed/chairNo Any PHYSICAL HEALTH complaints todayNo Any emotional health concerns?No Are you exposed to second hand smoke?No Perla England MD [address] [place] [address], [phone], [facility] 05/21/2024 08:17:10 OBGyn Episode No OBEpisode recorded.
--- OUTSIDE RECORDS SUMMARY | 2024-06-08 14:52 | XMS_ITS | Referral Summary ---
Author Organization [facility] Address [address] [place] [address] Care Team Providers Care Jig Operator Name Role Phone Tad Sanz MD Unavailable [phone] Adam Tan MD Unavailable Aft, Dalila Hickman MD PhD Unavailable [phone] Ma, Josselin Jeffrey MD PhD Unavailable Owen Dan GLUE SPREADING MACHINE OPERATOR Unavailable [phone] Lisbet Kelley MD Unavailable Derek Valderrama MD Primary Care Provider [phone] Encounters Date Type Department Care Team Description 05/25/2024 Telephone [facility] [address] [place] [address] Jazmine Bauer RN Appointment 03/14/2024 Documentation [facility] [address] [place] [address] Angelika Morrow, RN from Last 3 Months Allergies Active Allergy Reactions Criticality Noted Date Comments Adhesive Rash Medium 09/26/2019 Certain tapes after surgery-cause burning and break out Cinnamon Anaphylaxis High 05/23/2019 Penicillins Anaphylaxis,Swelling High 06/08/2021 Tolerated ceftriaxone, cefepime before Tinidazole Unknown,Rash Medium 05/23/2019 Tissue Adhesive Blisters High 12/28/2022 Pt has sever dermatologic reaction at site of application *No Demabond* Medications prochlorperazine (COMPAZINE) 10 mg tabletIndication s:Malignant neoplasm metastatic to bone (CMS/HCC) (HCC),Nausea Take 1 tablet (10 mg total) by mouth every 8 (eight) hours as needed for nausea or vomiting 90 tablet 1 3 Active apixaban (ELIQUIS) 5 mg tabletIndication s:Other acute pulmonary embolism without acute cor pulmonale (HCC),Acute pulmonary embolism without acute cor pulmonale, unspecified pulmonary embolism type (HCC) Take 1 tablet (5 mg total) by mouth 2 (two) times a day 180 tablet 3 4 Active ondansetron (ZOFRAN) 8 mg tabletIndication s:Nausea Take 1 tablet (8 mg total) by mouth every 8 (eight) hours as needed for nausea or vomiting 90 tablet 11 4 Active venlafaxine XR (EFFEXOR-XR) 37.5 mg 24 hr capsuleIndicatio ns:Malignant neoplasm metastatic to bone (CMS/HCC) (HCC),Malignant neoplasm of upper-inner quadrant of left breast in female, estrogen receptor positive (HCC) TAKE 1 CAPSULE BY MOUTH EVERY DAY 90 capsule [address] (PROTONIX) 40 mg EC tabletIndication s:Malignant neoplasm of upper-inner quadrant of left breast in female, estrogen receptor positive (HCC),Malignant neoplasm metastatic to bone (CMS/HCC) (HCC) Take 1 tablet (40 mg total) by mouth daily 90 tablet 3 4 Active loperamide (IMODIUM) 2 mg capsuleIndicatio ns:Malignant neoplasm metastatic to bone (CMS/HCC) (HCC),Malignant neoplasm metastatic to brain (HCC),Malignant neoplasm of upper-inner quadrant of left breast in female, estrogen receptor positive (HCC) Take 2 caps (4 mg) by mouth with first onset of diarrhea, 1 cap (2 mg) after each loose stool thereafter. Max 8 caps (16 mg) per 24 hours. 60 capsule 3 4 Active cetirizine (ZyrTEC) 10 mg tabletIndication s:Malignant neoplasm metastatic to bone (CMS/HCC) (HCC),Malignant neoplasm metastatic to brain (HCC),Malignant neoplasm of upper-inner quadrant of left breast in female, estrogen receptor positive (HCC) Take 1 tablet (10 mg total) by mouth daily 30 tablet 3 4 Active diphenoxylate-at ropine (LOMOTIL) 2.5-0.025 mg per tabletIndication s:diarrhea Take 1 tablet by mouth 4 (four) times a day as needed for diarrhea 30 tablet 4 Active clindamycin (CLEOCIN) 300 mg capsule Take 1 capsule 3 times a day by oral route for 10 days. 4 Active traZODone (DESYREL) 50 mg tabletIndication s:insomnia Take 1 tablet (50 mg total) by mouth nightly 90 tablet 3 4 Active lidocaine-priloc gianna (EMLA) creamIndications :Administration of Local Anesthesia Apply topically as needed for pain 30 g 3 4 Active capivasertib (TRUQAP) 200 mg tabletIndication s:Malignant neoplasm metastatic to bone (CMS/HCC) (HCC),Malignant neoplasm metastatic to brain (HCC),Malignant neoplasm of upper-inner quadrant of left breast in female, estrogen receptor positive (HCC) Take 2 tablets (400 mg total) by mouth 2 (two) times a day Swallow whole. Do not chew, break, open, or dissolve. Take with or without food. Take for 4 days in a row, followed by 3 days not taking each week. 64 tablet 4 Active Active Problems Problem Noted Date Diagnosed Date DWAINE (acute kidney injury) 12/29/2023 Assessment & Plan (12/30/2023 11:57 AM CDT): DWAINE with hyperphosphatemia, likely prerenal in the setting of hypovolemia secondary to nausea and vomiting. Less likely TLS given mildly elevated uric acid, which is also related to DWAINE. Calcium 8.0, at patient's baseline. Received 1 L IV fluids in [facility]. - TLS labs daily - continue maintenance IV fluid - DWAINE improving with IV fluids. Patient wishes to go home today. Advised to have blood work done next week but patient refuses and wishes to have it done on her next visit on 01/08 Abnormal INR 12/29/2023 Assessment & Plan (12/30/2023 11:57 AM CDT): Coagulopathy with INR 1.95, PTT 21.3, no bleeding. On Eliquis, although unlikely to be the culprit. - continue to monitor for now, repeat INR in a.m.. - INR improving Anxiety 12/29/2023 Assessment & Plan (12/29/2023 7:42 PM CDT): History of mood disorder, chronic insomnia: Continue home Effexor trazodone nightly. Jaw pain 12/29/2023 Assessment & Plan (12/30/2023 12:01 PM CDT): reports 3 month history of left lower lip numbness, 1 week off left lower jaw pain, for which he visited a local urgent care and she was prescribed on clindamycin for concern of tooth abscess. Left lower lip numbness can be related to previously demonstrated left greater than right internal auditory canal and cranial nerve 5 enhancement/leptomeningeal spread. Panorex imaging negative for large dental caries or periapical lucencies. - plan was to consider CT maxillofacial with contrast for further evaluation when DWAINE improves. Patient wants to leave today. Jaw pain is improving per patient and she plan to see her dentist for further evaluation. 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 (Call back [phone]. ) Anarobic culture grew gram + cocci from her port and the anaerobic culture grew granulicatella adiacens. F/U repeat blood cultures F/u [facility] blood culture and sensitivity Start vancomycin Discussed starting cefepime (however patient denied starting any penicillin group antibiotics given her h/o generalized swelling with penicillin when she was 1 years old) Start aztreonam Obtain MRSA swab De-escalate Antibiotics after more data form [facility] culture report (could be just a contaminant) Over determined not a contaminant, we will likely need port removal and ID consultation, MRI spine to check for abscess Myoclonus 02/06/2023 Assessment & Plan (02/06/2023 3:03 AM CDT): Noted by patient for approx 4-6 days. Likely secondary to gabapentin use. - reduce gabapentin 900mg TID -> 300mg TID, consider neurology c/s if not improved by dose reduction Anemia 02/06/2023 Assessment & Plan (02/06/2023 3:03 AM CDT): Baseline 8s-9s, admitted at 6.9 but did receive significant fluid resuscitation at [facility]SH ED, given 1 unit pRBCs on admission. No clinical signs of bleeding. - trend CBC, transfuse for Hgb 7.0, can consider secondary workup (iron panel) but anemia likely multifactorial from malignancy, therapies, recent surgery Hypotension secondary to uni ntentional opiate overdose in patient with opiate dependence 02/05/2023 Assessment & Plan (02/06/2023 3:00 AM CDT): Patient with unintentional opiate overdose via doubling fentanyl patches and continuing to take morphine despite recent discontinuationNo SI/self-harm desire. Responsive to Narcan in field. NAD on admission, noting pain well controlled. Hypotension resolved by transfer time s/p fluids and Narcan. Low concern for infectious, cardiac, or neurological cause of shock. - Obtain CTH and CT cervical spine given recently spinal surgery. Pt declines despite counseling. - Home regimen: Fentanyl 87mcg patch, Gabapentin 900mg TID, Lidocaine patches, Flexeril 10mg TID PRN and Dilaudid 8mg q6 PRN - Here: cont lidocaine patches, hold fentanyl patch, reduce gabapentin to 300mg TID given myoclonus, dose-reduce flexeril 10mg -> 5mg, dose reduce dilaudid 8mg -> 4mg, spot additional opiate for breakthrough pain pending clinical improvement given intermittent somnolence on admission and recent receipt of Narcan - patient needs counseling regarding safety of opiate use going forward given high OME requirements - Consult to pain mgmt services Compression fracture of C5 vertebra 01/25/2023 Pain 10/10/2022 Nontraumatic compression fracture of T12 vertebr a 10/09/2022 Assessment & Plan (10/15/2022 10:00 PM CDT): Reports slightly worse pain in her lower back related to osseous Mets with no warning signs of cord compression, new worsening abdominal pain with nausea/vomiting/diarrhea. Home regimen is MS Contin 90 mg t.i.d., p.o. Dilaudid 8 mg Q 6 hours, gabapentin 200 mg t.i.d. and ibuprofen q.12 hours with food. - she is been running out of MS Contin, will need refills at discharge. Reports no improvement in pain with p.o. Dilaudid at home. - start MS Contin 90 t.i.d., IV Dilaudid g q.3 hours, increase gabapentin to 300 mg t.i.d.; adjustments as needed: Added oxycodone as first line and dilaudid for breakthrough - obtain CT L-spine to check for acute fractures:CT Recon Lumbar Spine W Contrast: Worsening extensive osseous metastatic disease when compared to CT from 08/09/2022 as demonstrated by a progressive pathologic compression deformity of the T12 vertebral body and increasing osseous erosion of the posterior right iliac bone. - Ordered Spine MRI - Consulted neurosurgery and [facility] IR: neurosurgery recommended CT total spine without contrast - CT abdomen pelvis to look for metastatic spread: CT abdomen pelvis with contrast: No definite CT explanation for nausea and vomiting. Several sites of worsening osseous metastatic disease. Particularly, there are areas of increased lytic change in the pelvis, with new cortical breakthrough and extraosseous soft tissue in the right anterior iliac bone and a site of worsening pathologic compression fracture, T12. Possible new 1 cm liver lesion in segment 4A of the liver. Unchanged lesion in segment 3 which may represent a small hemangioma. Liver MRI may be considered for definitive evaluation if indicated. - [facility] IR performed vertebroplasty on 10/13/22. Patient without spinal tenderness this morning. Significantly improved with baclofen. Malignant neoplasm metastatic to brain 3 Gastroesophageal reflux disease without esophagi tis 02/08/2022 Assessment & Plan (02/06/2023 3:04 AM CDT): Continue home PPI. Brain metastasis 02/08/2022 Nausea and vomiting 01/02/2022 Assessment & Plan (12/30/2023 11:56 AM CDT): Presented with symptoms of nausea, vomiting, generalized myalgia, arthralgia, weakness, headache. Unclear etiology, possibly related to recently started fulvestrant plus capivasertib D1 C1 December 26 vs infectious process. Positive urinalysis but no urinary symptoms. - improved with symptomatic support with IV fluids, antiemetics - was started ceftriaxone until urine culture results. Given asymptomatic bacteriuria will not treated - follow blood cultures - pain control with Tylenol, oxycodone, hydromorphone p.r.n.. Assessment & Plan (01/08/2022 4:51 PM CDT): This patient has ongoing symptoms of nausea, vomiting for past 2 months. This has required 3 different admissions. Of note, last admission during last week, more likely cause of the symptoms was related to ribociclib. When she was managed conservatively with IV fluids and antiemetics, with improvement in her symptoms. However within 24 hours of discharge, she had recurrence of similar symptoms. Now presenting with concern for dehydration. On labs normal liver chemistries. Normal renal function. calcium almost normal. - for differential for her nausea and vomiting includes medication side effects (ribociclib/memantine) vs STATISTICIAN THEORETICAL malignancy (post radiation related). No obstructive symptoms on exam and last month imaging with no GI structural abnormality noted. Pt had not had any EGD. - Zofran 4mg IV q6h PRN for nausea switched to PO, also has a scopolmaine patch on. Promethazine rectal supp 25mg q8h PRN. - Resumed mirtazapine at night. At discharge she will benefit from olanzapine as it will have anti-emetic effects. - empiric PPI - Brain MRI unchanged - GI consulted for assistance to determine if there are other etiologies that should be considered Assessment & Plan (01/07/2022 4:19 PM CDT): This patient has ongoing symptoms of nausea, vomiting for past 2 months. This has required 3 different admissions. Of note, last admission during last week, more likely cause of the symptoms was related to ribociclib. When she was managed conservatively with IV fluids and antiemetics, with improvement in her symptoms. However within 24 hours of discharge, she had recurrence of similar symptoms. Now presenting with concern for dehydration. On labs normal liver chemistries. Normal renal function. calcium almost normal. - for differential for her nausea and vomiting includes medication side effects (ribociclib/memantine) vs STATISTICIAN THEORETICAL malignancy (post radiation related). No obstructive symptoms on exam and last month imaging with no GI structural abnormality noted. Pt had not had any EGD. - Zofran 4mg IV q6h PRN for nausea to be switched to PO on discharge. Promethazine rectal supp 25mg q8h PRN. - Resumed mirtazapine at night. At discharge she will benefit from olanzapine as it will have anti-emetic effects. - empiric PPI - Brain MRI unchanged - GI consulted for assistance to determine if there are other etiologies that should be considered Assessment & Plan (01/06/2022 2:17 PM CDT): This patient has ongoing symptoms of nausea, vomiting for past 2 months. This has required 3 different admissions. Of note, last admission during last week, more likely cause of the symptoms was related to ribociclib. When she was managed conservatively with IV fluids and antiemetics, with improvement in her symptoms. However within 24 hours of discharge, she had recurrence of similar symptoms. Now presenting with concern for dehydration. On labs normal liver chemistries. Normal renal function. calcium almost normal. - for differential for her nausea and vomiting includes medication side effects (ribociclib/memantine) vs STATISTICIAN THEORETICAL malignancy (post radiation related). No obstructive symptoms on exam and last month imaging with no GI structural abnormality noted. Pt had not had any EGD. - Zofran 4mg IV q6h PRN for nausea to be switched to PO on discharge. Promethazine rectal supp 25mg q8h PRN. - Resumed mirtazapine at night. At discharge she will benefit from olanzapine as it will have anti-emetic effects. - empiric PPI - pending brain MRI - GI consulted for assistance to determine if there are other etiologies that should be considered Assessment & Plan (01/05/2022 3:18 PM CDT): This patient has ongoing symptoms of nausea, vomiting for past 2 months. This has required 3 different admissions. Of note, last admission during last week, more likely cause of the symptoms was related to ribociclib. When she was managed conservatively with IV fluids and antiemetics, with improvement in her symptoms. However within 24 hours of discharge, she had recurrence of similar symptoms. Now presenting with concern for dehydration. On labs normal liver chemistries. Normal renal function. calcium almost normal. - for differential for her nausea and vomiting includes medication side effects (ribociclib/memantine) vs STATISTICIAN THEORETICAL malignancy (post radiation related). No obstructive symptoms on exam and last month imaging with no GI structural abnormality noted. Pt had not had any EGD. - Zofran 4mg IV q6h PRN for nausea to be switched to PO on discharge. Promethazine rectal supp 25mg q8h PRN. - We will resume mirtazapine at night. At discharge she will benefit from olanzapine as it will have anti-emetic effects. - empiric PPI - pending brain MRI - GI consulted for assistance to determine if there are other etiologies that should be considered Acute diarrhea 01/02/2022 Assessment & Plan (01/20/2023 10:31 PM CDT): Presents with 1 day of severe watery diarrhea, >40 episodes in one day with hematochezia. Afebrile and VSS other than mild tachycardia. Associated with generalized pain and restlessness. Given acute onset, highest suspicion for viral gastroenteritis. However given that she is immunosuppressed due to active chemotherapy, and that she has other systemic symptoms, concern for disseminated infection and/or opportunistic infection causing colitis. Other possibility would be medication side effect, given that she received the first cycle of Enhertu just 2 weeks ago. - obtain blood cultures, UA, CXR, KUB - stool culture, C.diff, crypto/giardia - maintenance IVF due to significant GI losses - consider CT AP pending results of above Assessment & Plan (01/08/2022 4:51 PM CDT): Pt with ongoing upto 4-6 loose BM daily. - unclear if related to side effects vs inflammatory/infectious -Negative stool studies - C diff, stool culture, O&P Assessment & Plan (01/07/2022 4:19 PM CDT): Pt with ongoing upto 4-6 loose BM daily. - unclear if related to side effects vs inflammatory/infectious - Get stool studies - C diff, stool culture, O&P Assessment & Plan (01/06/2022 2:18 PM CDT): Pt with ongoing upto 4-6 loose BM daily. - unclear if related to side effects vs inflammatory/infectious - Get stool studies - C diff, stool culture, O&P Assessment & Plan (01/02/2022 11:14 PM CDT): Pt with ongoing upto 4-6 loose BM daily. - unclear if related to side effects vs inflammatory/infectious - Get stool studies - C diff, stool culture, O&P Mood disorder 01/02/2022 Assessment & Plan (02/06/2023 3:04 AM CDT): No SI. Cont home venlafaxine, dose-reduce home mirtazapine given sedation on admission Assessment & Plan (01/08/2022 4:51 PM CDT): Continue home dose of Effexor-XR 75mg Assessment & Plan (01/07/2022 4:19 PM CDT): Continue home dose of Effexor-XR 75mg Assessment & Plan (01/06/2022 2:18 PM CDT): Continue home dose of Effexor-XR 75mg Assessment & Plan (01/02/2022 11:18 PM CDT): Continue home dose of Effexor-XR 75mg Intractable nausea and vomiting 12/21/2021 Pulmonary embolism 12/21/2021 Assessment & Plan (12/29/2023 7:40 PM CDT): History of pulmonary embolism, continue home Eliquis and PPI. Assessment & Plan (10/15/2022 10:00 PM CDT): Diagnosed September 2021, On eliquis at home. Hold eliquis 10/10 in anticipation of possible procedures, switched to lovenox 100mg BID. - Restarted lovenox this AM, switched to Eliquis with no evidence of bleeding. Assessment & Plan (12/22/2021 4:44 PM CDT): -PE initially diagnosed 08/2021 with recent admit for worsening pleuritic chest and back pain but with improvement in PE's on imaging -Continue Eliquis for systemic anticoagulation Assessment & Plan (12/21/2021 11:17 PM CDT): -PE initially diagnosed 08/2021 with recent admit for worsening pleuritic chest and back pain but with improvement in PE's on imaging -Continue Eliquis Neutropenia 12/21/2021 Assessment & Plan (12/22/2021 4:52 PM CDT): -labs with WBC 2.0, ANC 0.9 -otherwise afebrile -Continue to monitor Assessment & Plan (12/21/2021 11:26 PM CDT): -Last labs with WBC 1.6, ANC 0.9 -Admit labs pending Chest pain on breathing 11/24/2021 Assessment & Plan (11/24/2021 4:07 PM CDT): - Pt c/o pleuritic right sided CP associated with deep inspiration and is 8/10 in intensity - CTA ruled out nay progression in PE or new consolidations, infiltrate or effusion - Pt did have MSK tenderness upon palpation - Likely associated with post radiation pain vs infiltrative metastatic disease - Will c/w graduated pain control for now Chronic pulmonary embolism without acute cor pul monale 11/24/2021 Assessment & Plan (02/06/2023 3:05 AM CDT): Home eliquis currently held post-surgically, restart per NSGY (initial rec 2 weeks post-op) Assessment & Plan (11/24/2021 4:14 PM CDT): - Pt was first diagnosed with PE in 08/2021 and was started on Eliquis, she was later readmitted in 10/2021 with c/o chest pain which suspicion for progression of emboli which was later ruled out upon extensive comparison of imaging from [place] and the one done at [facility] as IP. - Pt was on Eliquis 5 mg po BID as OP for AC which was switched to Lovenox 100 mg q12h sq as the pt was not able to tolerate po meds - CTA repeated on 11/24/21 was remarkable for previously described PE with stable changes - Plan to switch back to DOAC upon DC Emesis, persistent 11/24/2021 Assessment & Plan (11/24/2021 4:17 PM CDT): - Pt continues to c/o persistent nausea while emesis has subsided at this time - Will c/w Zofran, Zyprexa and Metoclopramide for now - can also be likely related to opioid use and Dronabinol. - c/w NS @ 75 ml/hr for active hydration Malignant neoplasm metastatic to bone (CMS/HCC) 11/09/2021 Severe malnutrition 11/05/2021 Drug-induced constipation 10/30/2021 Assessment & Plan (10/30/2021 2:02 PM CDT): Generalized abdominal pain with no bowel movement in the past week. - Start scheduled miralax daily - Start senna-docusate BID Acute pulmonary embolism without acute cor pulmo nale 10/29/2021 Assessment & Plan (02/09/2023 1:56 AM CDT): History of PE, currently not anticoagulated. Discharge med reconciliation recommended to restart Eliquis on 02/10 (likely was being held post operatively) Assessment & Plan (01/08/2022 4:50 PM CDT): Resume eliquis Assessment & Plan (01/07/2022 4:17 PM CDT): Resume eliquis Assessment & Plan (01/06/2022 2:17 PM CDT): Resume eliquis Assessment & Plan (01/05/2022 3:16 PM CDT): Resume eliquis Assessment & Plan (10/30/2021 10:36 AM CDT): Provoked secondary to malignancy, initial episode on 09/20/[address] chest and was started on Eliquis, now with recurrent PE on anticoagulation consider treatment failure on Eliquis. -CT on admission with possible right lower lower lung infarct and possible right heart strain which was negative per ED bedside ultrasound. -PERT team activated on 10/29, patient not candidate for systemic or catheter directed thrombolysis due to known brain mets. Recommend starting Lovenox at 0.75mg/kg at 80mg bid with anti-Xa check after 4th dose. -LE doppler without LE DVT -TTE pending -Hematology consult Assessment & Plan (10/29/2021 7:08 PM CDT): -Provoked secondary to malignancy, initial episode on 09/20/[address] chest and was started on Eliquis, now with recurrent PE on anticoagulation consider treatment failure on Eliquis. -CT on admission with possible right lower lower lung infarct and possible right heart strain which was negative per ED bedside ultrasound. -PERT team activated on 10/29, patient not candidate for systemic or catheter directed thrombolysis due to known brain mets. Recommend starting Lovenox at 0.75mg/kg at 80mg bid with anti-Xa check after 4th dose. -Obtain formal TTE and Doppler, patient possible candidate for IVC filter per PERT. -Hematology consult in AM for treatment failure. Cancer related pain 10/29/2021 Assessment & Plan (01/08/2022 4:50 PM CDT): We will continue home dose of Morphine 60mg daily Assessment & Plan (01/07/2022 4:17 PM CDT): We will continue home dose of Morphine 60mg daily Assessment & Plan (01/06/2022 2:17 PM CDT): We will continue home dose of Morphine 60mg daily Assessment & Plan (01/05/2022 3:17 PM CDT): We will continue home dose of Morphine 60mg daily Assessment & Plan (10/29/2021 7:13 PM CDT): -Continue home morphine ER 15mg tid and oxycodone 10mg q4hr, start morphine 2mg IV q4hr prn for breakthrough. -Continue bowel regimen with miralax. Assessment & Plan (10/29/2021 7:11 PM CDT): -Continue home morphine ER 15mg tid and oxycodone 10mg q4hr, start morphine 2mg IV q4hr prn for breakthrough. -Continue bowel regimen with miralax. Hyponatremia 10/29/2021 Assessment & Plan (10/29/2021 7:13 PM CDT): -Likely secondary to acute PE, mild, continue to monitor. Assessment & Plan (10/29/2021 7:09 PM CDT): -Likely secondary to acute PE, mild, continue to monitor. Metabolic acidosis 10/29/2021 Assessment & Plan (10/29/2021 7:13 PM CDT): -Anion gap acidosis, likely due to likely pulmonary infarction seen on CT. -Continue supportive care with IVF. Assessment & Plan (10/29/2021 7:09 PM CDT): -Anion gap acidosis, likely due to likely pulmonary infarction seen on CT. -Continue supportive care with IVF. Fracture of ramus of right pubis 10/29/2021 Assessment & Plan (02/06/2023 3:04 AM CDT): Noted during prior admission, recommended non-op by orthopedics. - PT/OT Assessment & Plan (10/30/2021 11:09 AM CDT): Pathologic fracture, non-displaced seen on CT on admission. Also noted on OSH CT AP from 09/26/21. -Patient without significant pain complaint, continue pain management. Assessment & Plan (10/29/2021 7:10 PM CDT): -Pathologic fracture, non-displaced seen on CT on admission. -Patient without significant pain complaint, continue pain management. Dehydration 10/14/2021 Chemotherapy induced nausea and vomiting 022 Intractable vomiting with nausea 09/27/2021 Acute chest pain 09/26/2021 Overview (11/15/2022): In setting of recent PE Chest wall pain and tenderness. No evidence of cardiac ischemia Troponin negative x 2 l ECG: Sinus rhythm Pulmonary embolus, right (CMS/HCC) 09/20/2021 Overview (11/15/2022): CT chest 10/03/21 Persistent pulmonary embolus obstructing the right interlobar pulmonary artery. Findings suggestive of progressive infarction of the subpleural peripheral right mid and lower lung. Persistent mild elevation of the right diaphragm.. Improved consolidation in the medial left superior lung and left hilum. Improved minimal infiltrate at the left lung base Stable multifocal metastatic disease in the thoracic spine. CTA: Extensive osseous metastatic disease in the thoracic spine, lumbar spine, sacrum, and right and left pelvis. No pathologic fracture. Obstructing pulmonary embolus in the right interlobar pulmonary artery extending into multiple right lower lobe segmental vessels. Consolidation medial left suprahilar region. Patchy peripheral infiltrate in the right mid and lower lung. Minimal infiltrate at the left lung base. Troponin neg BNP WNL EKG ST Echo 09/21/2021: Poor visualization due to breast implants. Normal LV size and systolic function. LVEF 65%. RV appears dilated in some views with normal systolic function. No major aortic or mitral valve disease Periumbilical abdominal pain 09/13/2021 Hyponatremia 09/13/2021 SBO (small bowel obstruction) (CMS/HCC) 05/22/20 22 Primary malignant neoplasm of breast with metast asis 09/11/2021 Assessment & Plan (02/06/2023 3:02 AM CDT): Patient with longstanding, complicated oncological history -- please see oncology notes and treatment plan. Currently transitioning to elacestrant but notes reflect recent PA denial; not yet on medication. Most recent complication is compression fractures s/p C5 corpectomy/anterior fusion + C4-C6 PCF. - obtain repeat head/neck CT given unknown events, pt declines such on admission but no neuro deficits - med onc c/s, rad onc c/s, consider re-involvement of NSGY pending imaging findings Assessment & Plan (01/20/2023 10:35 PM CDT): History of metastatic breast cancer diagnosed in 2018, detailed Onc history as per HPI. Metastatic to liver, bone, and brain. Recently switched therapy from Xeloda to Enhertu due to disease progression, first cycle received 01/03/23. 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 fulvestrant plus capivasertib D1 C1 December 26. 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 Intractable headache 08/18/2021 Primary carcinoma of breast with metastasis 07/25 Rupture of anterior cruciate ligament of right k nee 12/01/2020 Bucket-handle tear of medial meniscus of right knee as current injury 12/01/2020 Morbid obesity with BMI of 40.0-44.9, adult 0 12/2020 Class 2 obesity with body ma ss index (BMI) of 36.0 to 36.9 in adult 10/21/2020 Postoperative wound infection 10/16/2020 Erythema of breast 10/16/2020 Overview (10/16/2020): Added automatically from request for surgery [id number] History of vitamin D deficiency 10/01/2020 Excess skin of upper extremity 09/07/2020 Overview (09/07/2020): Added automatically from request for surgery [id number] Acquired deformity of upper extremity 09/07/2020 Overview (09/07/2020): Added automatically from request for surgery [id number] Encounter for follow-up surveillance of breast c ancer 08/04/2020 Unwanted fertility 10/08/2019 Overview (10/08/2019): Added automatically from request for surgery [id number] Absence of breast, acquired, bilateral 0 Overview (09/27/2019): Added automatically from request for surgery [id number] Follow-up examination, following other surgery 0 09/06/2019 Malignant neoplasm of upper- inner quadrant of left breast in female, estrogen receptor positive (CMS/HCC) 04/30/2019 Cancer Staging:Pathologic:Stage IB(pT2, pN0(sn), cM0, G3, ER+, FL+, HER2-, Oncotype DX score: 20) - Signed by Zi Peterson MD on 02/11/2020 Assessment & Plan (02/09/2023 1:55 AM CDT): metastatic breast cancer (diagnosed 04/10/2020, on chemo) with brain and bone metastases status post whole-brain radiation and palliative radiotherapy to the thoracic and lumbar spine who was recently treated for C5 pathologic fracture with a C5 corpectomy and C4-6 ACDF followed by posterior C4-6 cervical fusion (01/27/2023, Dr. Sanders) Continue current pain management: Fentanyl 87mcg patch, Gabapentin 900mg TID, Lidocaine patches, Flexeril 10mg TID PRN and Dilaudid 8mg q6 PRN Assessment & Plan (10/14/2022 6:34 PM CDT): History of breast cancer with known Mets to brain and bone throughout the axial and appendicular skeleton. - continue pain meds as described above - continue scopolamine patch (placed on 10/09), p.r.n. Zofran and Compazine - follow-up with CT abdomen pelvis and CT L-spine: Liver with increased size of metastasis, cervical spine with C5 fracture with loss of height, T5 and T12 fractures, the latter with loss of height. - ordered brain MRI with without contrast to monitor intracranial Mets in view of headache and failure to thrive situation, demonstrates no new acute lesions. - med onc c/s: aware of new lesions, agree with [facility] IR consultation regarding vertebral metastases with compression fractures. Patient to follow with the oncology team as an outpatient. Assessment & Plan (01/08/2022 4:50 PM CDT): History of metastatic breast cancer initially diagnosed 2019, s/p b/l mastectomies and then local recurrence and with mets to brain/spine and s/p WBRT/spine radiation in 08/2021, right iliac bone biopsy+, and then had been on hormonal therapies including letrozole and most recently added ribociclib in 10/2021. - At this point patient is having recurrent admissions for nausea and vomiting symptoms. Last oncology wishes did discussed about if patient needs to have a port placed for IV fluids at home. - pending repeat brain MRI to determine if she has worsening brain metastases - Pt was planned to have 3 week on-1 week off with ribociclib Assessment & Plan (01/07/2022 4:17 PM CDT): History of metastatic breast cancer initially diagnosed 2019, s/p b/l mastectomies and then local recurrence and with mets to brain/spine and s/p WBRT/spine radiation in 08/2021, right iliac bone biopsy+, and then had been on hormonal therapies including letrozole and most recently added ribociclib in 10/2021. - At this point patient is having recurrent admissions for nausea and vomiting symptoms. Last oncology wishes did discussed about if patient needs to have a port placed for IV fluids at home. - pending repeat brain MRI to determine if she has worsening brain metastases - Pt was planned to have 3 week on-1 week off with ribociclib Assessment & Plan (01/06/2022 2:17 PM CDT): History of metastatic breast cancer initially diagnosed 2019, s/p b/l mastectomies and then local recurrence and with mets to brain/spine and s/p WBRT/spine radiation in 08/2021, right iliac bone biopsy+, and then had been on hormonal therapies including letrozole and most recently added ribociclib in 10/2021. - At this point patient is having recurrent admissions for nausea and vomiting symptoms. Last oncology wishes did discussed about if patient needs to have a port placed for IV fluids at home. - pending repeat brain MRI to determine if she has worsening brain metastases - Pt was planned to have 3 week on-1 week off with ribociclib Assessment & Plan (01/04/2022 1:15 PM CDT): History of metastatic breast cancer initially diagnosed 2018, s/p b/l mastectomies and then local recurrence and with mets to brain/spine and s/p WBRT/spine radiation in 08/2021, right iliac bone biopsy+, and then had been on hormonal therapies including letrozole and most recently added ribociclib in 10/2021. - At this point patient is having recurrent admissions for nausea and vomiting symptoms. Last oncology wishes did discussed about if patient needs to have a port placed for IV fluids at home. - pending repeat brain MRI to determine if she has worsening brain metastases - Pt was planned to have 3 week on-1 week off with ribociclib; for now holding this admission until seen by Onc team Assessment & Plan (12/22/2021 4:53 PM CDT): -H x of ER/FL+, HER2 negative breast cancer that recurred after resection in 2019 later found to have metastatic disease in spine and brain s/p WBRT and palliative RT to T/L spine completed 08/2021. On letrozole, Lupron, ribociclib (started 11/09/21), Xgeva held 11/30 due to hypocalcemia -Follows with Dr. De Oliveira. -Reports pain in the right lower posterior chest area which is chronic, aggravated by exertion/coughing/sneezing -Continue MSContin 60 mg Daily, dilaudid 0.5 mg Q4hr PRN, Oxycodone 15 mg Q4hr PRN -Also reports generalized itching,no obvious rash,Benadryl did not help,trial of atarax Assessment & Plan (12/21/2021 11:24 PM CDT): -H x of ER/FL+, HER2 negative breast cancer that recurred after resection in 2019 later found to have metastatic disease in spine and brain s/p WBRT and palliative RT to T/L spine completed 08/2021. On letrozole, Lupron, ribociclib (started 11/09/21), Xgeva held 11/30 due to hypocalcemia -Follows with Dr. De Oliveira. Med onc c/s. -Continue MSContin 60, which per prior notes she takes TID, however patient reports she only takes once daily in the morning in addition to oxycodone 15mg PRN Breast mass 04/10/2019 Abnormal findings on diagnostic imaging of breas t 04/10/2019 Small bowel obstruction (CMS/HCC) 11/24/2017 Assessment & Plan (11/26/2017 12:18 PM CDT): 27 year old healthy female s/p appendectomy and in the past, admitted with abdominal pain, nausea, and vomiting. CT scan shows possible SBO with intraabdominal fluid. Admitted for NG decompression and serial abdominal exams. -Small Bowel Follow Through (11/25) = resolving partial small bowel obstruction & plain film the following morning shows contrast to the rectum & the patient had multiple bowel movements. At discharge, the patient was tolerating a general diet and having bowel movements. Resolved Problems Problem Noted Date Diagnosed Date Resolved Date Nausea vomiting and diarrhea 12/21/2021 10/14/2022 Assessment & Plan (10/10/2022 9:53 AM CDT): P/w few days' history of nausea, vomiting and diarrhea associated with poor intake and abdominal pain. - check C diff, will hold Imodium until C diff results - obtaining CT abdomen pelvis to look for metastases, colitis etc: CT abdomen pelvis with contrast: No definite CT explanation for nausea and vomiting. Several sites of worsening osseous metastatic disease. Particularly, there are areas of increased lytic change in the pelvis, with new cortical breakthrough and extraosseous soft tissue in the right anterior iliac bone and a site of worsening pathologic compression fracture, T12. Possible new 1 cm liver lesion in segment 4A of the liver. Unchanged lesion in segment 3 which may represent a small hemangioma. Liver MRI may be considered for definitive evaluation if indicated. - continue p.r.n. nausea meds Assessment & Plan (12/22/2021 4:44 PM CDT): -Recurrent presentations for N/V and hx of diarrhea with ribociclib. Suspect symptoms may be 2/[address] A/P during recent prior admission without findings to explain GI symptoms. -Has tried multiple anti-emetics in the past, including Compazine, Phenergan, Zofran. Also recently prescribed Ativan and Zyprexa -No vomiting since yesterday but continues to have nausea,tolerating clear liquid diet -Continue Zyprexa 5 mg QHS,Ativan PRN. Continue to hold Zofran due to prolonged QTc, Trial of promethazine. Reports IV promethazine has helped her in the past. -Advance to regular diet Assessment & Plan (12/21/2021 11:20 PM CDT): -Recurrent presentations for N/V and hx of diarrhea with ribociclib. Suspect symptoms may be 2/[address] A/P during recent prior admission without findings to explain GI symptoms. -IVF -CBC, CMP -Check Cdiff given diarrhea -Has tried multiple anti-emetics in the past, including Compazine, Phenergan, Zofran. Also recently prescribed Ativan and Zyprexa. Continue Zyprexa 5 QHS, Zofran, Ativan. Will check EKG as on ribociclib and has had borderline elevated QTc in the past -Hold ribociclib pending onc c/s Immunizations Name Administration Dates Next Due Pfizer SARS-CoV-2 Monovalent Vaccination (12+ Yrs) PURPLE 11/27/2020 Tdap 09/15/2012 Social History Tobacco Use Types Packs/Day Years Used Date Smoking Tobacco: Former Cigarettes Q uit: 03/05/2020 Smokeless Tobacco: Never Tobacco Cessation:Counseling Given: No Alcohol Use Standard Drinks/Week Comments Yes 2 (1 standard drink = 0.6 oz pur e alcohol) [facility] Utilities Answer Date Recorded In the past 12 months has e [employer], [employer], oil, or water [employer] threatened to shut off services in your home? Patient unable to answer 12/30/2023 Social Connection and Isolation Panel [NHANES] A nswer Date Recorded In a typical week, how many times do you talk on the phone with family, friends, or neighbors? Patient unable to answer 12/30/2023 How often do you get togethe r with friends or relatives? Patient unable to answer 12/30/2023 How often do you attend [facility] or mormon services? Patient unable to answer 12/30/2023 Do you belong to any clubs o r organizations such as bahai groups, unions, fraternal or athletic groups, or school groups? Patient unable to answer 12/30/2023 How often do you attend meet ings of the clubs or organizations you belong to? Patient unable to answer 12/30/2023 Are you , , di vorced, , never , or living with a partner? Patient unable to answer 12/30/2023 AUDIT-C Answer Date Recorded Q1: How often do you have a drink containing alcohol? Never 02/24/2023 Q2: How many drinks containi ng alcohol do you have on a typical day when you are drinking? Patient does not drink Q3: How often do you have si x or more drinks on one occasion? Never 02/24/2023 Overall Financial Resource Strain (CARDIA) Answe r Date Recorded How hard is it for you to pa y for the very basics like food, housing, medical care, and heating? Patient unable to answer 12/30/2023 PHQ-2 Answer Date Recorded PHQ-2 Total Score 0 10/11/2022 Exercise Vital Sign Answer Date Recorde d On average, how many days pe r week do you engage in moderate to strenuous exercise (like a brisk walk)? 4 days 09/26/2019 On average, how many minutes do you engage in exercise at this level? 60 min 09/26/2019 Hunger Vital Sign Answer Date Recorded Within the past 12 months, y ou worried that your food would run out before you got the money to buy more. Patient unable to answer 12/30/2023 Within the past 12 months, t he food you bought just didn't last and you didn't have money to get more. Patient unable to answer 12/30/2023 PRAPARE - Transportation Answer Date Re corded In the past 12 months, has l ack of transportation kept you from medical appointments or from getting medications? Patient unable to answer 12/30/2023 In the past 12 months, has l ack of transportation kept you from meetings, work, or from getting things needed for daily living? Patient unable to answer 12/30/2023 Housing Stability Vital Sign Answer Salvador e Recorded In the last 12 months, was t here a time when you were not able to pay the mortgage or rent on time? No 02/09/2023 In the last 12 months, how many places have you lived? 1 02/09/2023 In the last 12 months, was t here a time when you did not have a steady place to sleep or slept in a intermediate (including now)? No 02/09/2023 Housing Stability Vital Sign Answer Salvador e Recorded In the last 12 months, was t here a time when you were not able to pay the mortgage or rent on time? Patient unable to answer 12/30/2023 In the past 12 months, how m any times have you moved where you were living? 0 12/30/2023 At any time in the past 12 m [facility], were you homeless or living in a intermediate (including now)? Patient unable to answer 12/30/2023 Personal Safety Answer Date Recorded Have you ever been in or are you currently in a harmful physical or emotional relationship or is someone making you feel afraid or unsafe? Denies 12/29/2023 Comments No Sex and Gender Information Value Date Recorded Sex Assigned at Not on file Legal Sex Female 2:49 AM TRUANT OFFICER Gender Identity Female 06/06/2022 9:23 PM TRUANT OFFICER Sexual Orientation Not on file Last Filed Vital Signs Vital Sign Reading Time Taken Comments Blood Pressure 141/99 02/06/2024 3:02 PM CDT Pulse 83 02/06/2024 3:02 PM CDT Temperature 36.5 C (97.7 F) 02/06/2024 3:02 PM CDT Respiratory Rate 18 02/06/2024 3:02 PM CDT Oxygen Saturation 97% 02/06/2024 3:02 PM CDT Inhaled Oxygen Concentration - - Weight 88 kg (194 lb) 02/06/2024 3:02 PM CDT Height 157.5 cm (5' 2 ) 12/29/2023 5:45 PM CDT Body Mass Index 35.48 12/29/2023 5:45 PM CDT Plan of Treatment Upcoming Encounters Date Type Department Care Team (Latest Contact Info) Description 06/11/2031 Orders Only [facility] Scanning, Provider Goals Goal Patient Goal Type Associated Problems Recent Progress Patient-Stated? Author [facility] Fall Prevention Care Plan Chronic Care Management On track(2022 9:25 AM CDT) No Lien Coy, RN Note: Problem: Falls Goals: 1. Maintain strength and balance as able 2. Prevent falls and fractures 3. Maximize safety of living environment Strategies: - Educate on fall prevention and follow-up as needed - Recommend activity/exercise program - Refer to allied health as needed - Recommend healthy lifestyle strategies and compensatory methods as needed [facility] Chronic Pain Care Plan Chronic Care Management Worsening( 9:25 AM CDT) Lien Benites, RN Note: Problem: Chronic Pain Goals: 1. Minimize further functional decline 2. Maximize quality of life 3. Control pain Strategies: - Activity/exercise program recommendation - Conservative stepwise pain medicine strategy with multi-disciplinary approach - Recommend healthy lifestyle strategies and compensatory methods as needed Medical Devices Implanted Type Area Paper Production Engineer Device Identifier Shelf Expiration Date Model / Serial / Lot Colibria [id number] Magtrace Liquid Marker 10 Vial Carton - [id number] Implanted:Qty : 1 on 05/31/2019 by Aft, Dalila Hickman MD PhD at [facility] Breast Left: Breast Col[employer] 11/23/2019 [id number] / / [id number] [employer] [id number] Implant Mammary Natrelle Te Smooth 376p-Vl-28-T With Fourte - [id number] - [id number] Implanted:Qty : 1 on 05/31/2019 by Uvaldo Mcgowan MD at [facility] Breast Right: Breast [employer] [id number] 08/15/2023 133S-FX-14 -T / [id number] / [employer] 246c-Em-45-T Implant Mammary Natrelle Te Smooth 445l-Im-31-T With Fourte - [id number] - [id number] Implanted:Qty : 1 on 05/31/2019 by Uvaldo Mcgowan MD at [facility] Breast Left: Breast [employer] [id number] 12/26/2023 133S-FX-14 -T / [id number] / [employer] 68hp-650 Natrelle 14-13.8cm Style 68hp Smooth Anterior Diaphragm Valve - [id number] - [id number] Implanted:Qty : 1 on 10/12/2019 by Uvaldo Mcgowan MD at [facility] Breast Left: Breast [employer] [id number] 05/02/2022 68HP-650 / [id number] / [id number] [employer] 68hp-650 Natrelle 14-13.8cm Style 68hp Smooth Anterior Diaphragm Valve - [id number] - [id number] Implanted:Qty : 1 on 10/12/2019 by Uvaldo Mcgowan MD at [facility] Breast Right: Breast [employer] [id number] 12/31/2022 68HP-650 / [id number] / [id number] [employer] Excela Low Porfile Power Port 8fr 1.6mm 1 Lumen [id number] - [id number] Implanted:Qty : 1 on 12/22/2022 at [facility] [employer] 07/11/2027 [id number] [facility] [employer] [id number] Fortify [id number] Footprint Upper Endplate Sagittal Profile 3.5d 12 Latex Free - [id number] Implanted:Qty : 1 on 01/27/2023 by Pedro Sanders MD at [facility] 151.323 / / [facility] [id number] Fortify [id number] Footprint Lower Endplate Sagittal Profile 3.5d 12 Latex Free - [id number] Implanted:Qty : 1 on 01/27/2023 by Pedro Sanders MD at [facility] 151.373 / / [employer] [id number] Xtend L24 Mm 2 Level Spine; Cervical; Anterior Plate Bone - [id number] Implanted:Qty : 1 on 01/27/2023 by Pedro Sanders MD at [facility] 161.224 / / [employer] Xtend Od4.2 Mm L14 Mm Variable Angle; Self Tap Spine Screw Bone 161.314 - [id number] Implanted:Qty : 3 on 01/27/2023 by Pedro Sanders MD at [facility] 161.314 / / [employer] Vip Od4.6 Mm L14 Mm Self Drill Variable Angle Spine Screw Bone N 171.014 - [id number] Implanted:Qty : 1 on 01/27/2023 by Pedro Sanders MD at [facility] 171.014 / / [employer] Quartex Thread Spine Cap Locking 1149.0001 - [id number] Implanted:Qty : 6 on 01/27/2023 by Pedro Sanders MD at [facility] 1149.0001 / / [employer] Quartex 4mm 40mm Curve Javier Spinal Nonsterile Latex Free 1149.7540 - [id number] Implanted:Qty : 2 on 01/27/2023 by Pedro Sanders MD at [facility] 1149.7540 / / [employer] Quartex 3.5mm 14mm Polyaxial Spine Screw Bone Nonsterile Latex 1149.3514 - [id number] Implanted:Qty : 3 on 01/27/2023 by Pedro Sanders MD at [facility] 1149.3514 / / [employer] Quartex 3.5mm 16mm Polyaxial Spine Screw Bone Nonsterile Latex 1149.3516 - [id number] Implanted:Qty : 3 on 01/27/2023 by Pedro Sadners MD at [facility] 1149.3516 / / [employer] Allograft Bone Putty 2.5cc 700-025 - [id number] Implanted:Qty : 1 on 01/27/2023 by Pedro Sanders MD at [facility] N/A: Spine Cervical [employer] [id number] 06/22/2024 700-025 / / [id number] [employer]ynthes Spine Substitute Bone Graft Fibergraft Large Bioactive Glass Putty [id number] - [id number] - [id number] Implanted:Qty : 1 on 01/27/2023 by Pedro Sanders MD at [facility] [employer] Spine 07/21/2025 [id number] / [id number] / [facility] [id number] Fortify [id number] 12mm Spacer Spinal Nonsterile Latex Free - [id number] Implanted:Qty : 1 on 01/27/2023 by Pedro Sanders MD at [facility] 151.051 / / Insurance [facility] H[facility]POS Advance Directives For more information, please contact: [phone] Documents on File Type Date Recorded Patient Facility Technician Expl anation Power of Can Tester 06/08/2022 7:57 PM [place] A OF HEALTH CARE.pdf * Full Code (Latest Code Status on File) Date Activated Date Inactivated Comments 12/29/2023 7:37 PM 12/30/2023 4:18 PM * Full Code Date Activated Date Inactivated Comments 02/08/2023 9:39 PM 02/10/2023 6:03 PM * Full Code Date Activated Date Inactivated Comments 02/05/2023 8:00 PM 02/08/2023 7:07 PM * Full Code Date Activated Date Inactivated Comments 01/20/2023 9:41 PM 02/01/2023 6:45 PM * Full Code Date Activated Date Inactivated Comments 12/22/2022 7:11 AM 12/23/2022 5:18 AM Care Teams Jig Operator Relationship Specialty Start Date End Date Derek Valderrama MD [address] [place] [address] DR AD[address] [place] [address] PCP - General Internal Medicine 01/11/23 Tad Sanz MD [address] [place] [address] Referring Physician Obstetrics and Gynecology 03/26/19 Adam Tan MD [address] [facility] [address] [place] [address] Radiation Oncologist Radiation Oncology 02/11/20 AftDalila MD PhD [address] [facility] [place] [address] Surgeon Surgical Oncology 02/11/20 Josselin De Oliveira MD PhD [address] [facility] [address] [place] [address] Medical Oncologist/Special Education Paraprofessional Medical Oncology 02/13/20 Owen Dan NP [address] [place] [address] [place] [address] Nurse Practitioner Nurse Practitioner 12/09/20 Lisbet Kelley MD [address] [place] [address] [place] [address] Anesthesiologist Pain Management 01/07/23
--- OUTSIDE RECORDS SUMMARY | 2024-06-08 14:52 | XMS_ITS | Encounter Summary ---
Author Organization [facility] Address [address] [place] [address] Care Team Providers Care Hot Wort Settler Name Role Phone Bautista Valderrama MD Primary Care Provider Reason for Visit * Reason Onset Date Comments Preprocedure Call 05/03/2024 Patient schedu led for liver bx, check in at 0930. NPO after 0500. Needs a pile driver operator helper. Meds with sips of water. Will take last dose of Eliquis on 05/06. All questions were answered and patient voiced understanding. Encounter Details Date Type Department Care Team (Late st Contact Info) Description 05/03/2024 Telephone [facility] Interventional Radiology [address] [place] [address] Yanet Sloan, RN Preprocedure Call (Patient scheduled for liver bx, check in at 0930. NPO after 0500. Needs a pile driver operator helper. Meds with sips of water. Will take last dose of Eliquis on 05/06. All questions were answered and patient voiced understanding.) Social History Tobacco Use Types Packs/Day Years Used Date Smoking Tobacco: Never Smokeless Tobacco: Never Alcohol Use Standard Drinks/Week Comments Not Currently 0 (1 standard drink = 0.6 oz pur e alcohol) Comments Unknown Sex and Gender Information Value Date Recorded Sex Assigned at Female 05/09/2024 9:43 AM VEHICLE BODY BUILDER Legal Sex Female 5:53 PM VEHICLE BODY BUILDER Gender Identity Not on file Sexual Orientation Not on file documented as of this encounter Plan of Treatment Not on file documented as of this encounter Visit Diagnoses Not on filedocumented in this encounter Additional Health Concerns Infection Onset Date Last Indicated Resolved Time COVID-19 Rule Out 05/14/2024 05/14/2024 05/14/2024 12:42 PM VEHICLE BODY BUILDER documented as of this encounter Care Teams Hot Wort Settler Relationship Specialty Start Date End Date Bautista Valderrama MD [address] [place] [address] PCP - General INTERNAL MEDICINE 05/12/22 documented as of this encounter
--- OUTSIDE RECORDS SUMMARY | 2024-06-08 14:52 | XMS_ITS | Encounter Summary ---
Author Organization [facility] Address [address] [place] [address] Phone Care Team Providers Care Remelt Operator Name Role Phone Derek Valderrama MD Primary Care Provider [phone] Tad Sanz MD Unavailable [phone] Adam Tan MD Unavailable Aft, Dalila Hickman MD PhD Unavailable [phone] Alvino, Josselin Jeffrey MD PhD Unavailable Owen Dan LEAN ENGINEER Unavailable [phone] Adelfo Shabazz MD Primary Care Pr ovider Hui Netwon RN Unavailable Alvino, Josselin Jeffrey MD PhD Primary Care Provide r Lisbet Kelley MD Unavailable Derek Valderrama MD Primary Care Provider [phone] Encounter Details Date Type Department Care Team (Late st Contact Info) Description 09/29/2020 Orders Only [facility] Oncology [address] [facility] 7th [place] [address] [place] [address] Josselin De Oliveira MD PhD [address] [facility] [address] [place] [address] Social History Tobacco Use Types Packs/Day Years Used Date Smoking Tobacco: Former Cigarettes Q uit: 03/05/2020 Smokeless Tobacco: Never Alcohol Use Standard Drinks/Week Comments Yes 2 (1 standard drink = 0.6 oz pur e alcohol) AUDIT-C Answer Date Recorded Q1: How often do you have a drink containing alc ohol? 2-4 times a month 09/12/2020 Q2: How many drinks containi ng alcohol do you have on a typical day when you are drinking? 3 or 4 09/12/2020 Q3: How often do you have si x or more drinks on one occasion? Monthly 09/12/2020 Exercise Vital Sign Answer Date Recorde d On average, how many days pe r week do you engage in moderate to strenuous exercise (like a brisk walk)? 4 days 09/26/2019 On average, how many minutes do you engage in exercise at this level? 60 min 09/26/2019 Comments No Sex and Gender Information Value Date Recorded Sex Assigned at Not on file Legal Sex Female 2:49 AM CEREAL MILLER Gender Identity Female 06/06/2022 9:23 PM CEREAL MILLER Sexual Orientation Not on file documented as of this encounter Plan of Treatment Upcoming Encounters Date Type Department Care Team (Latest Contact Info) Description 06/11/2031 Orders Only [facility] Scanning, Provider documented as of this encounter Visit Diagnoses Not on filedocumented in this encounter Additional Health Concerns Infection Onset Date Last Indicated Resolved Time COVID: Recovered Comment:Pt tested COVID+ 08/22/20. Pt has been afebrile off antipyretics >24hrs. Results in media section Teresa Jenkins 09/16/2020 09/01/2020 09/16/2020 12/22/2020 3:0 5 AM CDT COVID: Suspected Comment:10/17/2020 IP Review - Pt with past infection and refusing new COVID test. Spoke to Plastics resident and stated that patient is still within Recovered window and her symptoms seem appropriate for a SST infection. CXR remains a concern (per resident, only images available). Pt does not need isolated for COVID. If persistently coughing, universal masking plus additional PPE may be prudent and private room preferred, but at this point, patient does not require isolation. Per resident, LEONARD provided similar feedback. Theresa Layton RN 10/16/2020 10/17/2020 10/17/2020 12:18 AM CDT COVID19 Comment:10/17/2020 IP Review - Pt with past positive test from 08/22/20 and considered Recovered. Theresa Layton RN 10/17/2020 10/17/2020 10/17/2020 3:10 PM C DT COVID: Recovered Comment:Added based on recent COVID infection. 10/17/2020 12/22/2020 02/14/2021 3:05 AM C DT COVID: Suspected 10/29/2021 10/29/2021 10/29/2021 2:22 PM CDT COVID: Suspected 10/09/2022 10/09/2022 10/09/2022 6:33 PM CDT C. difficile suspected 07/01/2023 07/01/202306/30 6:59 PM CEREAL MILLER COVID: Suspected 07/01/2023 07/01/2023 07/01/2023 11:45 AM CEREAL MILLER Norovirus suspected 07/01/2023 07/01/2023 07/01/19 7:24 PM CEREAL MILLER Norovirus 07/01/2023 07/01/2023 07/15/2023 3:05 AM CDT COVID: Suspected 12/29/2023 12/29/2023 12/29/2023 11:35 AM CDT documented as of this encounter Care Teams Remelt Operator Relationship Specialty Start Date End Date Derek Valderrama MD PCP - General 01/10/14 06/13/22 Adelfo Shabazz MD [address] [place] [address] PCP - General Radiation Oncology 06/14/22 10/10/22 Josselin De Oliveira MD PhD [address] [facility] [address] [place] [address] PCP - General Medical Oncology 10/11/22 01/10/23 Derek Valderrama MD [address] [place] [address] PCP - General Internal Medicine 01/11/23 Tad Sanz MD [address] [place] [address] Referring Physician Obstetrics and Gynecology 03/26/19 Adam aTn MD [address] [facility] [address] [place] [address] Radiation Oncologist Radiation Oncology 02/11/20 Aft, Dalila Hickman MD PhD [address] [place] [address] Surgeon Surgical Oncology 02/11/20 Josselin De Oliveira MD PhD [address] [facility] [address] [place] [address] Medical Oncologist/Performance Improvement Consultant Medical Oncology 02/13/20 Owen Dan NP [address] [place] [address] [address] Nurse Practitioner Nurse Practitioner 12/09/20 Hui Newton, SKYE [address] [place] [address] Nurse Navigator 08/17/22 08/23/22 Lisbet Kelley MD [address] [place] [address] Anesthesiologist Pain Management 01/07/23 documented as of this encounter
--- OUTSIDE RECORDS SUMMARY | 2024-06-08 14:52 | XMS_ITS | Clinical Summary ---
Author Organization [facility] Address [address] [place] [address] Care Team Providers Care Testing Tech Name Role Phone Tad Sanz MD Unavailable [phone] Adam Tan MD Unavailable Aft, Dalila Hickman MD PhD Unavailable [phone] Ma, Josselin Jeffrey MD PhD Unavailable SyOwen patterson BRIDAL CONSULTANT Unavailable [phone] iLsbet Kelley MD Unavailable Derek Valderrama MD Primary Care Provider [phone] Allergies Active Allergy Reactions Criticality Noted Date [...] (02/09/2023 2:43 AM CDT): 02/05: blood cultures ([facility]) come back positive, one of which was drawn from her port. (Call back [phone]. ) Anarobic culture grew gram + cocci [...] vomiting includes medication side effects (ribociclib/memantine) vs PATIENT PORTAL CONCIERGE malignancy (post radiation related). No obstructive symptoms [...] vomiting includes medication side effects (ribociclib/memantine) vs PATIENT PORTAL CONCIERGE malignancy (post radiation related). No obstructive symptoms [...] vomiting includes medication side effects (ribociclib/memantine) vs PATIENT PORTAL CONCIERGE malignancy (post radiation related). No obstructive symptoms [...] vomiting includes medication side effects (ribociclib/memantine) vs PATIENT PORTAL CONCIERGE malignancy (post radiation related). No obstructive symptoms [...] out upon extensive comparison of imaging from [place] and the one done at [facility] as IP. - Pt was [...] Hyponatremia 09/13/2021 SBO (small bowel obstruction) (CMS/HCC) 09/14/19 Primary malignant neoplasm of breast with metast [...] History of metastatic breast cancer diagnosed in 2019, detailed Onc history as per HPI. Metastatic [...] Morbid obesity with BMI of 40.0-44.9, adult 12/2020 Class 2 obesity with body ma ss index (BMI) of 36.0 to 36.9 in adult 10/21/2020 Postoperative wound infection 10/16/2020 Erythema of breast 10/16/2020 Overview (10/16/2020): Added automatically from request for surgery [id number] History of vitamin D deficiency 10/01/2020 Excess skin of upper extremity 09/07/2020 Overview (09/07/2020): Added automatically from request for surgery [id number] Acquired deformity of upper extremity 09/07/2020 Overview (09/07/2020): Added automatically from request for surgery [id number] Encounter for follow-up surveillance of breast c ancer 08/04/2020 Unwanted fertility 10/08/2019 Overview (10/08/2019): Added automatically from request for surgery [id number] Absence of breast, acquired, bilateral 0 Overview (09/27/2019): Added automatically from request for surgery [id number] Follow-up examination, following other surgery 0 09/06/2019 Malignant neoplasm of upper- inner quadrant of left breast in female, estrogen receptor positive (CMS/HCC) 04/30/2019 Cancer Staging:Pathologic:Stage IB(pT2, pN0(sn), cM0, G3, ER+, DC+, HER2-, Oncotype DX score: 20) - Signed [...] (12/22/2021 4:53 PM CDT): -H x of ER/DC+, HER2 negative breast cancer that recurred after [...] (12/21/2021 11:24 PM CDT): -H x of ER/DC+, HER2 negative breast cancer that recurred after resection in 2019 later found to have metastatic disease in spine and brain s/p WBRT and palliative RT to T/L spine completed 08/2021. On letrozole, Lupron, ribociclib (started 11/09/21), Xgeva held 11/30 due to hypocalcemia -Follows with Dr. Diaz Med onc c/s. -Continue MSContin 60, which [...] the past -Hold ribociclib pending onc c/s Encounters Date Type Department Care Team Description 05/25/2024 Telephone [facility] [address] [place] [address] Jazmine Bauer RN Appointment 03/14/2024 Documentation [facility] Oncology [address] [facility] [address] [place] [address] Angelika Morrow RN from Last 3 Months Immunizations Name Administration Dates Next Due Pfizer SARS-CoV-2 Monovalent Vaccination (12+ Yrs) PURPLE 11/27/2020 Tdap 09/15/2012 Surgical History Surgery Date Site/Laterality Comments SECTION 04/25/2007 - 04/24/2008 OTHER SURGICAL HISTORY 04/25/2012 - 04/24/2013 eptopic APPENDECTOMY 04/25/2011 - 04/24/2012 WISDOM TOOTH EXTRACTION WISDOM TOOTH EXTRACTION BREAST BIOPSY 04/10/2019 Left BREAST IMPLANT REMOVAL 09/24/2019 - 10/23/2019 MASTECTOMY 05/31/2019 Bilateral BREAST BIOPSY 01/10/2020 Left BREAST RECONSTRUCTION 04/25/2019 - 04/24/2020 x 5 [id number] DRUG-SCR CENTRAL LINE PLACEMENT > 5 YEARS 10/21/2020 N/A KYPHOPLASTY THORACIC 10/13/2022 N/A PORT PLACEMENT CHEST >5 YEARS 12/22/2022 N/A NECK SURGERY 01/23/2023 - 02/22/2023 replaced C5C6 disc Medical History Medical History Date Comments Motion sickness Breast cancer (HCC) Left breast PONV (postoperative nausea a nd vomiting) premedicated but no h/o usin g scopolamine Small bowel obstruction (CMS /HCC) (HCC) 2017 Small bowel obstruction, hos pitalized three or four days with NG tube, resolved with conservative management. The patient CT at that point in time revealed a transition point in the pelvis of the distal small bowel Ectopic laparoscopical ly Anxiety Depression Family History Medical History Relation Name Comments No Known Problems Father Cancer Maternal Grandfather duodenal cancer Maternal Grandfather Breast cancer Maternal Grandmother No Known Problems Mother Hypertension Other 1 Family history of Hypertension; Arthritis Other 2 Family history of arthritis; Heart disease Paternal Grandfather Heart disease Paternal Grandmother Anesthesia problems Neg Hx Stroke Neg Hx Relation Name Status Comments Father Alive Maternal Grandfather Maternal Grandmother Mother Alive Other 1 Other 2 Paternal Grandfather Paternal Grandmother Social History Tobacco Use Types Packs/Day Years Used Date Smoking Tobacco: Former Cigarettes Q uit: 03/05/2020 Smokeless Tobacco: Never Tobacco Cessation:Counseling Given: No Alcohol Use Standard Drinks/Week Comments Yes 2 (1 standard drink = 0.6 oz pur e alcohol) [facility] Utilities Answer Date Recorded In the past 12 months has [employer] gas, oil, or water revoPT threatened to shut off services in your [...] answer 12/30/2023 How often do you attend chur ch or islam services? Patient unable to answer 12/30/2023 Do you belong to any clubs o r organizations such as baptism groups, unions, fraternal or athletic groups, or [...] place to sleep or slept in a half-way (including now)? No 02/09/2023 Housing Stability Vital [...] any time in the past 12 m [facility], were you homeless or living in a half-way (including now)? Patient unable to answer 12/30/2023 Personal Safety Answer Date Recorded Have you ever been in or are you currently in a harmful physical or emotional relationship or is someone making you feel afraid or unsafe? Denies 12/29/2023 Comments No Sex and Gender Information Value Date Recorded Sex Assigned at Not on file Legal Sex Female 2:49 AM DOLPHIN RESEARCHER Gender Identity Female 06/06/2022 9:23 PM DOLPHIN RESEARCHER Sexual Orientation Not on file Obstetrics History Para Term AB IAB SAB Ectopic Multiple Livin g Live Births 3 1 1 2 1 1 1 1 Date Outcome GA Total Labor Labor/2nd/3rd Weight Sex Type Anes PTL Jigna A1 A5 Name Clin 2007 SAB 2008 M CS-Un spec Living 2013 Ectopic Comments G7,P1,AB6. section x1 and ectopic x. Removal of Implanon (Etonogestrel) implant left arm 05/31/2019. Last Filed Vital Signs Vital Sign Reading [...] Orders Only [facility] Scanning, Provider Health Maintenance Due Date Last Done Comments Cervical Cancer Screening 1988 Hepatitis C Screening 1988 Pneumococcal vaccine <65 (1 of 2 - PCV) 01/13/1994 Varicella Vaccines (1 of 2 - 13+ 2-dose series) 01/13/2001 Hepatitis B Screening 01/13/2006 Regular Well Visit/Exam 18-64 01/13/2006 Zoster Vaccine (1 of 2) 01/13/2007 Covid-19 Vaccine (3 - Pfizer risk series) 01/15/2021 12/18/2020, 11/27/2020 DTaP/Tdap/Td Vaccine (2 - Td or Tdap) 09/15/2022 09/15/2012 Depression Screening 10/10/2023 10/09/2022 Influenza Vaccine (#1) 2023 HPV Vaccines Aged Out No longer eligi ble based on patient's age to complete this topic Goals Goal Patient Goal Type Associated Problems Recent Progress Patient-Stated? Author [facility] Fall Prevention Care Plan Chronic Care Management [...] lifestyle strategies and compensatory methods as needed [facility] Chronic Pain Care Plan Chronic Care Management Worsening( 9:25 AM CDT) Lien Benites, RN Note: Problem: Chronic Pain Goals: 1. Minimize further functional decline 2. Maximize quality of life 3. Control pain Strategies: - Activity/exercise program recommendation - Conservative stepwise pain medicine strategy with multi-disciplinary approach - Recommend healthy lifestyle strategies and compensatory methods as needed Medical Devices Implanted Type Area Computer Science Teacher Device Identifier Shelf Expiration Date Model / Serial / Lot [employer] [id number] Magtrace Liquid Marker 10 Vial Carton - [id number] Implanted:Qty : 1 on 05/31/2019 by Aft, Dalila Hickman MD PhD at [facility] Breast Left: Breast [employer] 11/23/2019 [id number] / / [id number] [employer] [id number]-Tb-82-T Implant Mammary Natrelle Te Smooth 505f-Jy-19-T With Fourte - [id number] - [id number] Implanted:Qty : 1 on 05/31/2019 by Uvaldo Mcgowan MD at [facility] Breast Right: Breast [employer] [id number] 08/15/2023 133S-FX-14 -T / [id number] / [employer] 668v-St-06-T Implant Mammary Natrelle Te Smooth 415l-Tj-79-T With Fourte - [id number] - [id number] Implanted:Qty : 1 on 05/31/2019 by Uvaldo Mcgowan MD at [facility] Breast Left: Breast [employer] [id number] 12/26/2023 133S-FX-14 -T / [id number] / [employer] 68hp-650 Natrelle 14-13.8cm Style 68hp Smooth Anterior Diaphragm Valve - [id number] - [id number] Implanted:Qty : 1 on 10/12/2019 by Uvaldo Mcgowan MD at [facility] Breast Left: Breast [employer] [id number] 05/02/2022 68HP-650 / [id number] / [id number] [employer] 68hp-650 Natrelle 14-13.8cm Style 68hp Smooth Anterior Diaphragm Valve - [id number] - [id number] Implanted:Qty : 1 on 10/12/2019 by Uvaldo Mcgowan MD at [facility] Breast Right: Breast [employer] [id number] 12/31/2022 68HP-650 / [id number] / [id number] Ang[employer] Excela Low Porfile Power Port 8fr 1.6mm 1 Lumen [id number] - [id number] Implanted:Qty : 1 on 12/22/2022 at [facility] Ang[employer] Dynamics 07/11/2027 [id number] [employer] [id number] Fortify [id number] Footprint Upper Endplate Sagittal Profile 3.5d 12 Latex Free - [id number] Implanted:Qty : 1 on 01/27/2023 by Pedro Sanders MD at [facility] [employer] 151.323 / / [employer] [id number] Fortify [id number] Footprint Lower Endplate Sagittal Profile 3.5d 12 Latex Free - [id number] Implanted:Qty : 1 on 01/27/2023 by Pedro Sanders MD at [facility] [employer] 151.373 / / [employer] [id number] Xtend L24 Mm 2 Level Spine; Cervical; Anterior Plate Bone - [id number] Implanted:Qty : 1 on 01/27/2023 by Pedro Sanders MD at [facility] [employer] 161.224 / / [employer] Xtend Od4.2 Mm L14 Mm Variable Angle; Self Tap Spine Screw Bone 161.314 - [id number] Implanted:Qty : 3 on 01/27/2023 by Pedro Sanders MD at [facility] [employer] 161.314 / / [employer] Vip Od4.6 Mm L14 Mm Self Drill Variable Angle Spine Screw Bone N 171.014 - [id number] Implanted:Qty : 1 on 01/27/2023 by Pedro Sanders MD at [facility] [employer] 171.014 / / [employer] Quartex Thread Spine Cap Locking 1149.0001 - [id number] Implanted:Qty : 6 on 01/27/2023 by Pedro Sanders MD at [facility] 1149.0001 / / [employer] Quartex 4mm 40mm Curve Javier Spinal Nonsterile Latex Free 1149.7540 - [id number] Implanted:Qty : 2 on 01/27/2023 by Pedro Sanders MD at [facility] 1149.7540 / / [employer] Quartex 3.5mm 14mm Polyaxial Spine Screw Bone Nonsterile Latex 1149.3514 - [id number] Implanted:Qty : 3 on 01/27/2023 by Pedro Sanders MD at [facility] 1149.3514 / / Glob [employer] Quartex 3.5mm 16mm Polyaxial Spine Screw Bone Nonsterile Latex 1149.3516 - [id number] Implanted:Qty : 3 on 01/27/2023 by Pedro Sanders MD at [facility] 1149.3516 / / Cer[employer]ics Inc Allograft Bone Putty 2.5cc 700-025 - [id number] Implanted:Qty : 1 on 01/27/2023 by Pedro Sanders MD at [facility] N/A: Spine Cervical [employer] Inc [id number] 06/22/2024 700-025 / / [id number] Depuy Synthes Spine Substitute Bone Graft Fibergraft Large Bioactive Glass Putty [id number] - [id number] - [id number] Implanted:Qty : 1 on 01/27/2023 by Pedro Sanders MD at [facility] Dep[employer] Synthes Spine 07/21/2025 [id number] / [id number] / [facility] [id number] Fortify [id number] 12mm Spacer Spinal Nonsterile Latex Free - [id number] Implanted:Qty : 1 on 01/27/2023 by Pedro Sanders MD at [facility] 151.051 / / Insurance [facility] AETNA COVENTRY HMO/POS Advance Directives For more information, please contact: [phone] Documents on File Type Date Recorded Patient Loan Administrator Expl anation Power of Arbor End Mainspring Former 06/08/2022 7:57 PM [facility] A OF HEALTH CARE.pdf * Full Code [...] 7:11 AM 12/23/2022 5:18 AM Care Teams Testing Tech Relationship Specialty Start Date End Date Derek Valderrama MD [address] [place] [address] [place] [address] PCP - General Internal Medicine 01/11/23 Tad Sanz MD [address] [place] [address] Referring Physician Obstetrics and Gynecology 03/26/19 Adam Tan MD [address] [facility] [address] [place] [address] Radiation Oncologist Radiation Oncology 02/11/20 Aft, Dalila Hickman MD PhD [address] [place] [address] Surgeon Surgical Oncology 02/11/20 Josselin De Oliveira MD PhD [address] [facility] [address] [place] [address] Medical Oncologist/Handkerchief Presser Medical Oncology 02/13/20 Owen Dan NP [address] [place] [address] [address] [place] [address] Nurse Practitioner Nurse Practitioner 12/09/20 Lisbet Kelley MD [address] [place] [address] [address] [place] [address] Anesthesiologist Pain Management 01/07/23
[2024-06-08 14:53] VITALS: BP 151/103; PULSE 100; RESP 16; TEMP 36.1; O2SAT 100
--- OUTSIDE RECORDS SUMMARY | 2024-06-08 14:53 | XMS_ITS | Clinical Summary ---
Author Organization [facility] Address [address] [place] [address] Care Team Providers Care Staff Field Engineer Name Role Phone Bautista Valderrama MD Primary Care Provider Allergies Active Allergy Reactions Criticality Noted Date Comments Tape Rash Low 03/20/2024 Cinnamon Anaphylaxis High 05/09/2024 Penicillins Swelling 03/20/2024 Medications Capivasertib 200 MG Tab Take 400 mg by mouth 2 (two) times daily. 4 Active apixaban (ELIQUIS) 5 MG tablet Take 1 tablet (5 mg total) by mouth 2 (two) times daily. 4 Active pantoprazole EC (PROTONIX) 40 MG tablet Take 1 tablet (40 mg total) by mouth daily. 4 Active ondansetron (ZOFRAN) 8 MG tablet Take 1 tablet (8 mg total) by mouth. 4 Active traZODone (DESYREL) 50 MG tablet Take 1 tablet (50 mg total) by mouth nightly at bedtime. Active oxyCODONE-aceta minophen (PERCOCET) 7.5-325 MG tablet Take 1 tablet by mouth every 4 (four) hours as needed. 4 Active HYDROcodone-judy taminophen (NORCO) 5-325 MG tabletIndicatio ns:Acute Pain < 3 Day Supply Take 1 tablet by mouth every 6 (six) hours as needed. Indications: Acute Pain < 3 Day Supply 10 tablet 5 Active naloxone (NARCAN) 4 MG/0.1ML nasal spray 1 spray by Nasal route as needed for Opioid reversal. may repeat every 2 to 3 minutes in alternating nostrils until medical assistance becomes available 1 each 5 05/10/19 26 Active capecitabine (XELODA) 500 MG tablet Take 3 tablets by mouth 2 (two) times daily. 5 Active azithromycin (ZITHROMAX) 250 MG tablet Take 2 tablets by mouth on day one then 1 daily for four days. 6 tablet 5 05/15/19 25 Encounters Date Type Department Care Team Description 06/07/2024 7:51 PM CONFERENCE MANAGER - 06/07/2024 11:29 PM [facility] [place] [address] Narcisa Camacho DO Musculoskeletal Pain Discharge Disposition: Home or Self Care (Routine Discharge) 06/07/2024 Travel 05/14/2024 10:23 AM CONFERENCE MANAGER - 05/14/2024 12:41 PM [facility] [address] [place] [address] [place] [address] Narcisa Camacho DO Vomiting Discharge Disposition: Home or Self Care (Routine Discharge) 05/14/2024 Travel 05/10/2024 6:16 PM CONFERENCE MANAGER - 05/10/2024 10:30 PM [facility] [address] [place] [address] [place] [address] Sumaya Faustin MD Back Pain Discharge Disposition: Home or Self Care (Routine Discharge) 05/10/2024 Travel 05/09/2024 9:46 AM CONFERENCE MANAGER - 05/09/2024 11:59 PM [facility] Hospital Encounter [facility] Ultrasound [address] [place] [address] Perla England MD Discharge Disposition: Home or Self Care (Routine Discharge) 05/09/2024 9:35 AM CONFERENCE MANAGER - 05/09/2024 9:45 AM CONFERENCE MANAGER Hospital Encounter [facility] Laboratory [address] [place] [address] Non-Staff, Provider Chris Richard MD Discharge Disposition: Home or Self Care (Routine Discharge) 05/09/2024 Travel 05/03/2024 Telephone [facility] Interventional Radiology [address] [place] [address] Beto Sloan RN Preprocedure Call (Patient scheduled for liver bx, check in at 0930. NPO after 0500. Needs a truck driver. Meds with sips of water. Will take last dose of Eliquis on 05/06. All questions were answered and patient voiced understanding.) 03/20/2024 12:06 PM CONFERENCE MANAGER - 03/20/2024 3:52 PM CONFERENCE MANAGER [facility] [address] [place] [address] Narcisa Camacho DO Back Pain Discharge Disposition: Home or Self Care (Routine Discharge) 03/20/2024 Travel from Last 3 Months Social History Tobacco Use Types Packs/Day Years Used Date Smoking Tobacco: Never Smokeless Tobacco: Never Tobacco Cessation:Counseling Given: Not Answered Alcohol Use Standard Drinks/Week Comments Not Currently 0 (1 standard drink = 0.6 oz pur e alcohol) Comments No Sex and Gender Information Value Date Recorded Sex Assigned at Female 05/09/2024 9:43 AM CONFERENCE MANAGER Legal Sex Female 5:53 PM CONFERENCE MANAGER Gender Identity Not on file Sexual Orientation Not on file Last Filed Vital Signs Vital Sign Reading Time Taken Comments Blood Pressure 141/103 06/07/2024 11:25 PM CONFERENCE MANAGER Pulse 112 06/07/2024 7:58 PM CONFERENCE MANAGER Temperature 36.1 C (96.9 F) 06/07/2024 7:58 PM CONFERENCE MANAGER Respiratory Rate 16 06/07/2024 7:58 PM CONFERENCE MANAGER Oxygen Saturation 95% 06/07/2024 11:25 PM CONFERENCE MANAGER Inhaled Oxygen Concentration - - Weight 83.5 kg (184 lb) 06/07/2024 7:58 PM CONFERENCE MANAGER Height 157.5 cm (5' 2 ) 06/07/2024 7:58 PM CONFERENCE MANAGER Body Mass Index 33.65 06/07/2024 7:58 PM CONFERENCE MANAGER Plan of Treatment Health Maintenance Due Date Last Done Comments Cervical Cancer Screening Pa p Smear (Age 30 to 64) Every 3 Years 1988 Annual Physical 01/13/1991 Hepatitis C 01/13/2006 Hepatitis B Vaccines (1 of 3 - 19+ 3-dose series) 01/13/2007 Cervical Cancer Screening Pa p with HPV Testing (Age 30 to 64) Every 5 Years 01/13/2018 Cervical Cancer Screening wi th HPV 01/13/2018 DTaP, Tdap and Td Vaccines ( 2 - Td or Tdap) 09/15/2022 09/15/2012 COVID-19 Vaccine (3 - 2023-2 5 season) 2023 12/18/2020, 11/27/2020 Influenza Adult (#1) 2024 HPV Vaccines Aged Out No longer eligi ble based on patient's age to complete this topic Meningococcal B Vaccine Aged Out No l onger eligible based on patient's age to complete this topic Meningococcal Vaccine Aged Out No philip alena eligible based on patient's age to complete this topic Pneumococcal Vaccine: Pediatrics (0 to 5 Years) and At-Risk Patients (6 to 64 Years) Aged Out No longer eligible b ased on patient's age to complete this topic RSV Immunizations Under 20 Months Aged Out No longer eligible b ased on patient's age to complete this topic Procedures Procedure Name Priority Date/Time Associated Diagnosis Comments COMPREHENSIVE METABOLIC PANEL STAT 06/07/2024 8:26 PM CONFERENCE MANAGER CBC W/DIFF AUTOMATED STAT 06/07/2024 8:26 PM CONFERENCE MANAGER LACTIC ACID STAT 05/14/2024 10:47 AM CONFERENCE MANAGER COMPREHENSIVE METABOLIC PANEL STAT 05/14/2024 10:47 AM CONFERENCE MANAGER CBC W/DIFF AUTOMATED STAT 05/14/2024 10:47 AM CONFERENCE MANAGER XR SHOULDER RT 3V STAT 05/10/2024 9:1 3 PM CONFERENCE MANAGER XR SHOULDER LT 3V STAT 05/10/2024 7:5 1 PM CONFERENCE MANAGER XR CHEST PORTABLE STAT 05/10/2024 7:[address] LUMB SPINE WO CON STAT 05/10/2024 7:[address] THOR SPINE WO CON STAT 05/10/2024 7:50 PM CONFERENCE MANAGER CTA CHEST+CT ABD+PEL W CON STAT 05/10/2024 7:50 PM CONFERENCE MANAGER ECG 12-LEAD Routine 05/10/2024 7:49 PM CONFERENCE MANAGER LIPASE STAT 05/10/2024 7:11 PM CONFERENCE MANAGER TROPONIN, QUANT STAT 05/10/2024 7:11 PM CONFERENCE MANAGER COMPREHENSIVE METABOLIC PANEL STAT 05/10/2024 7:11 PM CONFERENCE MANAGER CBC W/DIFF AUTOMATED STAT 05/10/2024 7:11 PM CONFERENCE MANAGER US GD TARGETED LIVER BX Routine 05/09/2024 1:30 PM CONFERENCE MANAGER Metastasis to liver (CMS/HCC HHS/HCC) CBC W/DIFF AUTOMATED Routine 05/09/2024 10:42 AM CONFERENCE MANAGER Secondary malignant neoplasm of liver (CMS/HCC HHS/HCC) PROTHROMBIN TIME, VENOUS Routine 05/09/2024 10:42 AM CONFERENCE MANAGER Secondary malignant neoplasm of liver (CMS/HCC HHS/HCC) POCT URINE (BACK OFFICE) Routine 05/09/2024 Metastasis to liver (CMS/HCC HHS/HCC) PATHOLOGY Routine 05/09/2024 12:[address] THOR SPINE WO CON STAT 03/20/2024 1:[address] LUMB SPINE WO CON STAT 03/20/2024 1:[address] ABD+PEL W CON STAT 03/20/2024 1:19 PM CONFERENCE MANAGER COMPREHENSIVE METABOLIC PANEL STAT 03/20/2024 12:35 PM CONFERENCE MANAGER CBC W/DIFF AUTOMATED STAT 03/20/2024 12:35 PM CONFERENCE MANAGER from Last 3 Months Results * (ABNORMAL) COMPREHENSIVE METABOLIC PANEL (06/07/2024 8:26 PM CONFERENCE MANAGER) Only the most recent of4 resultswithin the time period is included. SODIUM S/P/B 142 136 - 145 MMOL/L 06/07/2024 8:48 PM [facility] POTASSIUM S/P/B 4.2 3.5 - 5.1 MMOL/L 06/07/2024 8:48 PM [facility] CHLORIDE S/P/B 103 98 - 107 MMOL/L 06/07/2024 8:48 PM [facility] CO2 26.9 21.0 - 32.0 MMOL/L 06/07/2024 8:48 PM [facility] GLUCOSE 99 70 - 99 MG/DL 06/07/2024 8:48 PM [facility] Comment: FASTING GLUCOSE 100 TO 125 MG/DL IS CONSISTENT WITH IMPAIRED FASTING GLUCOSE. FASTING GLUCOSE >125 MG/DL IS CONSISTENT WITH DIABETES. RANDOM GLUCOSE >200 MG/DL WITH HYPERGLYCEMIC SYMPTOMS IS CONSISTENT WITH DIABETES. PER ADA GUIDELINES BUN 20 6 - 24 MG/DL 06/07/2024 8:48 PM [facility] CREATININE S/P/B 0.64 0.55 - 1.02 MG/DL 06/07/2024 8:48 PM [facility] CALCIUM S/P/B 9.0 8.4 - 10.5 MG/DL 06/07/2024 8:48 PM [facility] BILIRUBIN TOTAL S/P/B 0.2 0.2 - 1.0 MG/DL 06/07/2024 8:48 PM [facility] Comment: THIS ASSAY IS NOT RECOMMENDED FOR PATIENTS UNDERGOING TREATMENT WITH ELTROMBOPAG DUE TO THE POTENTIAL FOR FALSELY ELEVATED RESULTS. ALKALINE PHOSPHATASE S/P/B 369(H) 37 - 98 U/L 06/07/2024 8:48 PM [facility] AST 141(H) 15 - 37 U/L 06/07/2024 8:48 PM [facility] ALT 79(H) 14 - 59 U/L 06/07/2024 8:48 PM [facility] TOTAL PROTEIN S/P/B 7.4 6.4 - 8.2 G/DL 06/07/2024 8:48 PM CONFERENCE MANAGER [facility] ALBUMIN S/P/B 3.1(L) 3.4 - 5.0 G/DL 06/07/2024 8:48 PM CONFERENCE MANAGER [facility] ANION GAP 12.1 5.0 - 15.0 MMOL/L 06/07/2024 8:48 PM CONFERENCE MANAGER [facility] OSMOLALITY (CALC) 297 MOSM/KG 025 8:48 PM CONFERENCE MANAGER [facility] Comment:REFERENCE RANGE NOT ESTABLISHED GFR ESTIMATE >90 >89 ML/MIN/1. 73 M2 06/07/2024 8:48 PM CONFERENCE MANAGER [facility] GFR NOTES GFR REFERENCE S: 06/07/2024 8:48 PM [facility] Comment: THE ESTIMATED GFR IS CALCULATED USING THE 2020 CKD-EPI EQUATION. THE FOLLOWING CATEGORIES FOR GRADING RENAL FUNCTION ARE RECOMMENDED BY THE INTERNATIONAL SOCIETY OF NEPHROLOGY (KDIGO 2012 CLINICAL PRACTICE GUIDELINE). G1,NORMAL OR HIGH: >89 ml/min/1.73 m2 G2,MILDLY DECREASED: 60-89 ml/min/1.73 m2 G3A,MILDLY TO MODERATELY DECREASED: 45-59 ml/min/1.73 m2 G3B,MODERATELY TO SEVERELY DECREASED: 30-44 ml/min/1.73 m2 G4,SEVERELY DECREASED: 15-29 ml/min/1.73 m2 G5,KIDNEY FAILURE: <15 ml/min/1.73 m2 06/07/2024 8:26 PM CONFERENCE MANAGER us Narcisa Camacho DO LABORATORY Final Result [facility] [address] [place] [address], * (ABNORMAL) CBC W/DIFF AUTOMATED (06/07/2024 8:26 PM CONFERENCE MANAGER) Only the most recent of5 resultswithin the time period is included. WBC 4.40 4.00 - 10.80 x10'3/uL 06/07/2024 8:31 PM CONFERENCE MANAGER [facility] RBC 3.13(L) 4.10 - 5.40 x10'6/uL 06/07/2024 8:31 PM [facility] HGB 8.8(L) 12.0 - 16.0 G/DL 06/07/2024 8:31 PM [facility] HCT 27.2(L) 36.0 - 47.0 % 06/07/2024 8:31 PM [facility] MCV 86.9 78.0 - 100.0 FL 06/07/2024 8:31 PM [facility] MCH 28.1 27.0 - 31.0 PG 06/07/2024 8:31 PM [facility] MCHC 32.4(L) 33.0 - 36.0 G/DL 06/07/2024 8:31 PM [facility] RDW 14.4 11.5 - 14.5 % 06/07/2024 8:31 PM [facility] PLT 191 150 - 350 x10'3/uL 06/07/2024 8:31 PM [facility] MPV 9.3 7.4 - 10.4 FL 06/07/2024 8:31 PM [facility] CBC COMMENT NORMAL REFERENCE RANGE NOT ESTABLISHED FOR THE PROPORTIONAL LEUKOCYTE DIFFERENTIAL. 06/07/2024 8:31 PM [facility] NEUTROPHILS % 49.3 % 06/07/2024 8:31 PM [facility] LYMPHOCYTES % 32.3 % 06/07/2024 8:31 PM [facility] MONOCYTES % 14.1 % 06/07/2024 8:31 PM [facility] EOSINOPHILS % 2.5 % 06/07/2024 8:31 PM [facility] BASOPHILS % 0.9 % 06/07/2024 8:31 PM [facility] IMMATURE GRANS % 0.9 % 06/07/19 25 8:31 PM [facility] NRBC % 0.0 % 06/07/2024 8:31 PM [facility] ABS. NEUTROPHILS 2.17 1.60 - 8.30 x10'3/uL 06/07/2024 8:31 PM CONFERENCE MANAGER [facility] ABS. LYMPHOCYTES 1.42 0.80 - 4.70 x10'3/uL 06/07/2024 8:31 PM CONFERENCE MANAGER [facility] ABS. MONOCYTES 0.62 0.00 - 1.50 x10'3/uL 06/07/2024 8:31 PM CONFERENCE MANAGER [facility] ABS. EOSINOPHILS 0.11 0.00 - 0.40 x10'3/uL 06/07/2024 8:31 PM CONFERENCE MANAGER [facility] ABS. BASOPHILS 0.04 0.00 - 0.20 x10'3/uL 06/07/2024 8:31 PM CONFERENCE MANAGER [facility] ABS. IMMATURE GRANULOCYTES 0.04(H) 0.00 - 0.03 x10'3/uL 06/07/2024 8:31 PM CONFERENCE MANAGER [facility] ABS. NUCLEATED RBC'S 0.00 0.00 - 0.01 x10'3/uL 06/07/2024 8:31 PM CONFERENCE MANAGER [facility] 06/07/2024 8:26 PM CONFERENCE MANAGER Narcisa Camacho DO LABORATORY Final Result Performing Organization Address [facility] Co de Phone Number [phone] [place] [address], * (ABNORMAL) LACTIC ACID (05/14/2024 10:47 AM CONFERENCE MANAGER) LACTIC ACID VENOUS 3.5(H) 0.4 - 2.0 MMOL/L 05/14/2024 11:15 AM CONFERENCE MANAGER [facility] Comment: AN ORDER FOR A REPEAT LACTIC ACID TEST IS REQUIRED WITHIN 6 HOURS OF DIAGNOSIS ON A PATIENT WITH SEVERE SEPSIS. 05/14/2024 10:4 7 AM CONFERENCE MANAGER Narcisa Camacho DO LABORATORY Final Result [facility] [address] [place] [address], * XR SHOULDER RT 3V (05/10/2024 9:13 PM CONFERENCE MANAGER) Anatomical Region Laterality Modality Shoulder Radiographic Buffy ging 05/10/2024 9:54 PM CONFERENCE MANAGER Impressions 05/10/2024 9:56 PM CONFERENCE MANAGER IMPRESSION: 1. No acute osseous abnormality of the right shoulder. 2. Sclerotic regions throughout the bones compatible with metastasis, better assessed on same-day CT. Referred By: Interpreted By: Bjorn Leo MD, 05/10/2024 9:54 PM Narrative 05/10/2024 9:56 PM CONFERENCE MANAGER [address] [place] [address] Examination: XR SHOULDER RT 3V Exam time: 05/10/2024 9:13 PM Clinical history: Pain. Comparison: Same day chest x-ray and CT 05/10/2024. Technique: 3 views of the right shoulder. Findings: No fracture or dislocation. The glenohumeral and AC joints appear preserved. Sclerotic regions are present throughout the bones, better assessed on same day CT and compatible with metastasis. Atelectasis noted in the right lung. Procedure Note Bjorn Leo MD - 05/10/[address] [place] [address] Examination: XR SHOULDER RT 3V Exam time: 05/10/2024 9:13 PM Clinical history: Pain. Comparison: Same day chest x-ray and CT 05/10/2024. Technique: 3 views of the right shoulder. Findings: No fracture or dislocation. The glenohumeral and AC joints appearpreserved. Sclerotic regions are present throughout the bones, betterassessed on same day CT and compatible with metastasis. Atelectasis notedin the right lung. IMPRESSION: 1. No acute osseous abnormality of the right shoulder. 2. Sclerotic regions throughout the bones compatible with metastasis,better assessed on same-day CT. Referred By: Interpreted By: Bjorn Leo MD, 05/10/2024 9:54 PM Sumaya Faustin MD GENERAL IMAGING Final Result * XR SHOULDER LT 3V (05/10/2024 7:51 PM CONFERENCE MANAGER) Anatomical Region Laterality Modality Shoulder Radiographic Buffy ging 05/10/2024 8:32 PM CONFERENCE MANAGER Impressions 05/10/2024 8:57 PM CONFERENCE MANAGER IMPRESSION: Skeletal lesions left humeral head neck, left scapula and left ribs consistent with metastatic disease. The attending radiologist has reviewed the image(s) and agrees with the content of this report. Ordered By: SUMAYA FAUSTIN Interpreted By: Slava Morales MD, 05/10/2024 8:32 PM Narrative 05/10/2024 8:57 PM CONFERENCE MANAGER [address] [place] [address] Examination: XR SHOULDER LT 3V Exam time: 05/10/2024 7:50 PM Clinical history: Increasing pain all over. History of stage IV cancer. Comparison: CTA chest abdomen pelvis from same day. Technique: AP external rotation, AP internal rotation and scapular Y views of the left shoulder Findings: The left humeral head has multiple lucent lesions, with ill-defined border and a moth-eaten appearance, likely representing metastatic disease. Bony sclerosis in the left scapula. There may be some patchy bony sclerosis in some of the left ribs No acute fracture. No dislocation or subluxation. The acromioclavicular joint is maintained. Opacity in the left lower thorax which might be related to overlying breast implant but cannot exclude left pleural effusion or infiltrate or atelectasis lower left lung. Procedure Note Dagoberto Gooden MD - 05/10/[address] [place] [address] Examination: XR SHOULDER LT 3V Exam time: 05/10/2024 7:50 PM Clinical history: Increasing pain all over. History of stage IV cancer. Comparison: CTA chest abdomen pelvis from same day. Technique: AP external rotation, AP internal rotation and scapular Y viewsof the left shoulder Findings: The left humeral head has multiple lucent lesions, withill-defined border and a moth-eaten appearance, likely representingmetastatic disease. Bony sclerosis in the left scapula. There may be somepatchy bony sclerosis in some of the left ribs No acute fracture. Nodislocation or subluxation. The acromioclavicular joint is maintained.Opacity in the left lower thorax which might be related to overlyingbreast implant but cannot exclude left pleural effusion or infiltrate oratelectasis lower left lung. IMPRESSION: Skeletal lesions left humeral head neck, left scapula and left ribsconsistent with metastatic disease. The attending radiologist has reviewed the image(s) and agrees with thecontent of this report. Ordered By: SUMAYA FAUSTIN Interpreted By: Slava Morales MD, 05/10/2024 8:32 PM us Sumaya Faustin MD GENERAL IMAGING Final Result * XR CHEST PORTABLE (05/10/2024 7:51 PM CONFERENCE MANAGER) Anatomical Region Laterality Modality Chest Radiographic Buffy ging 05/10/2024 8:36 PM CONFERENCE MANAGER Impressions 05/10/2024 9:02 PM CONFERENCE MANAGER IMPRESSION: Infiltrate or atelectasis hilar to perihilar region right lung with some linear infiltrate or atelectasis right lower lung. Extensive skeletal lesion suggesting extensive skeletal metastatic disease. The attending radiologist has reviewed the image(s) and agrees with the content of this report. Ordered By: SUMAYA FAUSTIN Interpreted By: Slava Morales MD, 05/10/2024 8:36 PM Narrative 05/10/2024 9:02 PM CONFERENCE MANAGER [address] [place] [address] Examination: XR CHEST PORTABLE Exam time: 05/10/2024 7:50 PM Clinical history: Pain. History of metastatic breast cancer. Comparison: CT chest abdomen and pelvis from same day. Technique: 1 AP view of the chest. Findings: There is a right-sided medicine port projecting over the right thorax, entering the chest via the right jugular approach with its distal tip projecting over the cavoatrial junction. Exam at low lung volume. The heart size is within normal limits but has a mild left ventricular configuration. The mediastinal contour is unremarkable. The pulmonary vasculature is distributed appropriately. Mild elevation right diaphragm. Infiltrate or atelectasis perihilar region right lung with some linear atelectasis extending laterally from the infrahilar region right lung. No pleural effusion. No pneumothorax. Lytic and sclerotic lesions in the head neck left humerus,, sclerotic lesion in the coracoid process left scapula, possible subtle lucent lesions in the proximal right humerus and the acromion of the right scapula and probable rib lesions. There are sclerotic lesions in the lower thoracic and upper lumbar spine. The skeletal lesion suggesting extensive skeletal metastatic disease.. Procedure Note Dagoberto Gooden MD - 05/10/2024 [facility] [address] [facility] [place] [address] Examination: XR CHEST PORTABLE Exam time: 05/10/2024 7:50 PM Clinical history: Pain. History of metastatic breast cancer. Comparison: CT chest abdomen and pelvis from same day. Technique: 1 AP view of the chest. Findings: There is a right-sided medicine port projecting over the rightthorax, entering the chest via the right jugular approach with its distaltip projecting over the cavoatrial junction. Exam at low lung volume. The heart size is within normal limits but has a mild left ventricularconfiguration. The mediastinal contour is unremarkable. The pulmonaryvasculature is distributed appropriately. Mild elevation right diaphragm.Infiltrate or atelectasis perihilar region right lung with some linearatelectasis extending laterally from the infrahilar region right lung. Nopleural effusion. No pneumothorax. Lytic and sclerotic lesions in the head neck left humerus,, scleroticlesion in the coracoid process left scapula, possible subtle lucentlesions in the proximal right humerus and the acromion of the rightscapula and probable rib lesions. There are sclerotic lesions in the lowerthoracic and upper lumbar spine. The skeletal lesion suggesting extensiveskeletal metastatic disease.. IMPRESSION: Infiltrate or atelectasis hilar to perihilar region right lung with somelinear infiltrate or atelectasis right lower lung. Extensive skeletallesion suggesting extensive skeletal metastatic disease. The attending radiologist has reviewed the image(s) and agrees with thecontent of this report. Ordered By: SUMAYA FAUSTIN Interpreted By: Slava Morales MD, 05/10/2024 8:36 PM us Sumaya Faustin MD GENERAL IMAGING Final Result * CT THOR SPINE WO CON (05/10/2024 7:50 PM CONFERENCE MANAGER) Only the most recent of2 resultswithin the time period is included. Anatomical Region Laterality Modality Spine Computed Tomogra phy 05/10/2024 8:44 PM CONFERENCE MANAGER Impressions 05/10/2024 9:06 PM CONFERENCE MANAGER IMPRESSION: 1. No evidence of aortic dissection or other acute aortic syndrome. 2. No CT evidence of post hepatic biopsy consultation. 3. No acute finding of the thoracic or lumbar spine. 4. Extensive metastatic disease throughout the liver and skeleton. Referred By: Interpreted By: Genet Ontiveros DO, 05/10/2024 8:44 PM Narrative 05/10/2024 9:06 PM CONFERENCE MANAGER [address] [place] [address] EXAMINATION: CT THOR SPINE WO CON, CTA CHEST+CT ABD+PEL W CON, CT LUMB SPINE WO CON REPORT DATE: 05/10/2024 8:44 PM INDICATION: Chest, abdominal, and Back pain. Liver biopsy yesterday. Stage IV breast cancer. COMPARISON(S): CT abdomen/pelvis 03/26/2024, CT thoracic, lumbar spine as well as abdomen/pelvis 03/20/2024. TECHNIQUE #1: Gated contrast-enhanced axial CT images through the chest were obtained before and after the administration of intravenous contrast. Coronal and sagittal reformations were provided. A dose lowering technique was utilized for this procedure which may include but is not limited to dose reduction techniques, automated exposure control, and/or the use of iterative reconstruction in accordance with ALARA principle. TECHNIQUE #2: CT acquisition of the abdomen and pelvis. Coronal and sagittal reformatted images provided. A dose lowering technique was utilized for this procedure which may include but is not limited to dose reduction techniques, automated exposure control, and/or the use of iterative reconstruction in accordance with ALARA principle. IV Contrast: 95 mL Isovue 370 Oral contrast: None. FINDINGS: CHEST: AORTA AND MAJOR BRANCH VESSELS: Aorta normal in course and caliber. No intraluminal flap, intramural hematoma, or penetrating ulcer. Scattered atherosclerotic calcifications. Three-vessel aortic arch. Origin of the celiac trunk and superior mesenteric artery patent. Lower Neck: Visualized thyroid is normal. No pathologically enlarged supraclavicular lymph nodes are identified. Mediastinum: No pathologically enlarged mediastinal lymph nodes are identified. Decreased attenuation of the blood pool in comparison to major vessel prieto suggestive of anemia. The thoracic aorta is normal in caliber and appearance. The esophagus is normal in caliber and appearance. Heart: The heart size is normal. No pericardial thickening or effusion is identified. No coronary artery calcifications are present. Lungs: Linear consolidations, likely scarring/atelectasis. Mild bronchial wall thickening, unchanged. Pleural Space: No pleural effusion or pneumothorax is identified. ABDOMEN/PELVIS: Liver: Innumerable masses throughout the liver, largest 4.5 cm on axial imaging Gallbladder/biliary: Normal gallbladder. No biliary ductal dilation. Pancreas: Normal. Spleen: Normal. Adrenal glands: Normal. Kidneys and ureters: Normal. Bladder: Normal. Reproductive organs: Normal for age. Stomach/bowel: Normal. Appendix: Suspect prior appendectomy. Lymph nodes: No lymphadenopathy. Peritoneum: No intraperitoneal free air. No intraperitoneal free fluid. Vessels: Normal. MUSCULOSKELETAL: Abdominal wall: No hernia or soft tissue mass. Bones: No acute osseous abnormality. Soft tissues: Unremarkable. THORACIC AND LUMBAR SPINE: Morphology: No new fracture. T12 kyphoplasty extensive sclerotic lesions throughout the visualized skeleton. Partially imaged cervical fusion hardware. Large lytic component of L5 vertebral body lesion Alignment: Normal. Disc Levels: No significant degenerative changes. MUSCULOSKELETAL: Chest Wall: No rib or sternal fracture. Bilateral breast implants. Right chest port with tip in the right atrium. Pelvis: Chronic/healed fracture of the right ischium/ileum Muscles and Subcutaneous Tissues: No soft tissue injury. Proximal Appendicular Bones and Joints: No fracture or joint malalignment. Procedure Note RamaGenetDO - 05/10/2024 [facility] [address] [place] [address] EXAMINATION: CT THOR SPINE WO CON, CTA CHEST+CT ABD+PEL W CON, CT LUMBSPINE WO CON REPORT DATE: 05/10/2024 8:44 PM INDICATION: Chest, abdominal, and Back pain. Liver biopsy yesterday.Stage IV breast cancer. COMPARISON(S): CT abdomen/pelvis 03/26/2024, CT thoracic, lumbar spine aswell as abdomen/pelvis 03/20/2024. TECHNIQUE #1: Gated contrast-enhanced axial CT images through the chestwere obtained before and after the administration of intravenous contrast.Coronal and sagittal reformations were provided. A dose loweringtechnique was utilized for this procedure which may include but is notlimited to dose reduction techniques, automated exposure control, and/orthe use of iterative reconstruction in accordance with ALARA principle. TECHNIQUE #2: CT acquisition of the abdomen and pelvis. Coronal andsagittal reformatted images provided. A dose lowering technique wasutilized for this procedure which may include but is not limited to dosereduction techniques, automated exposure control, and/or the use ofiterative reconstruction in accordance with ALARA principle. IV Contrast: 95 mL Isovue 370 Oral contrast: None. FINDINGS: CHEST: AORTA AND MAJOR BRANCH VESSELS: Aorta normal in course and caliber. No intraluminal flap, intramural hematoma, or penetrating ulcer. Scattered atherosclerotic calcifications. Three-vessel aortic arch. Origin of the celiac trunk and superior mesenteric artery patent. Lower Neck: Visualized thyroid is normal. No pathologically enlargedsupraclavicular lymph nodes are identified. Mediastinum: No pathologically enlarged mediastinal lymph nodes areidentified. Decreased attenuation of the blood pool in comparison tomajor vessel prieto suggestive of anemia. The thoracic aorta is normal incaliber and appearance. The esophagus is normal in caliber andappearance. Heart: The heart size is normal. No pericardial thickening or effusion isidentified. No coronary artery calcifications are present. Lungs: Linear consolidations, likely scarring/atelectasis. Mild bronchialwall thickening, unchanged. Pleural Space: No pleural effusion or pneumothorax is identified. ABDOMEN/PELVIS: Liver: Innumerable masses throughout the liver, largest 4.5 cm on axialimaging Gallbladder/biliary: Normal gallbladder. No biliary ductal dilation. Pancreas: Normal. Spleen: Normal. Adrenal glands: Normal. Kidneys and ureters: Normal. Bladder: Normal. Reproductive organs: Normal for age. Stomach/bowel: Normal. Appendix: Suspect prior appendectomy. Lymph nodes: No lymphadenopathy. Peritoneum: No intraperitoneal free air. No intraperitoneal free fluid. Vessels: Normal. MUSCULOSKELETAL: Abdominal wall: No hernia or soft tissue mass. Bones: No acute osseous abnormality. Soft tissues: Unremarkable. THORACIC AND LUMBAR SPINE: Morphology: No new fracture. T12 kyphoplasty extensive sclerotic lesionsthroughout the visualized skeleton. Partially imaged cervical fusionhardware. Large lytic component of L5 vertebral body lesion Alignment: Normal. Disc Levels: No significant degenerative changes. MUSCULOSKELETAL: Chest Wall: No rib or sternal fracture. Bilateral breast implants. Rightchest port with tip in the right atrium. Pelvis: Chronic/healed fracture of the right ischium/ileum Muscles and Subcutaneous Tissues: No soft tissue injury. Proximal Appendicular Bones and Joints: No fracture or jointmalalignment. IMPRESSION: 1. No evidence of aortic dissection or other acute aortic syndrome. 2. No CT evidence of post hepatic biopsy consultation. 3. No acute finding of the thoracic or lumbar spine. 4. Extensive metastatic disease throughout the liver and skeleton. Referred By: Interpreted By: Genet Ontiveros DO, 05/10/2024 8:44 PM Sumaya aFustin MD CT Final Result * CT LUMB SPINE WO CON (05/10/2024 7:50 PM CONFERENCE MANAGER) Only the most recent of2 resultswithin the time period is included. Anatomical Region Laterality Modality Spine Computed Tomogra phy 05/10/2024 8:44 PM CONFERENCE MANAGER Impressions 05/10/2024 9:06 PM CONFERENCE MANAGER IMPRESSION: 1. No evidence of aortic dissection or other acute aortic syndrome. 2. No CT evidence of post hepatic biopsy consultation. 3. No acute finding of the thoracic or lumbar spine. 4. Extensive metastatic disease throughout the liver and skeleton. Referred By: Interpreted By: Genet Ontiveros DO, 05/10/2024 8:44 PM Narrative 05/10/2024 9:06 PM CONFERENCE MANAGER [place] [id number] [place] [address] EXAMINATION: CT THOR SPINE WO CON, CTA CHEST+CT ABD+PEL W CON, CT LUMB SPINE WO CON REPORT DATE: 05/10/2024 8:44 PM INDICATION: Chest, abdominal, and Back pain. Liver biopsy yesterday. Stage IV breast cancer. COMPARISON(S): CT abdomen/pelvis 03/26/2024, CT thoracic, lumbar spine as well as abdomen/pelvis 03/20/2024. TECHNIQUE #1: Gated contrast-enhanced axial CT images through the chest were obtained before and after the administration of intravenous contrast. Coronal and sagittal reformations were provided. A dose lowering technique was utilized for this procedure which may include but is not limited to dose reduction techniques, automated exposure control, and/or the use of iterative reconstruction in accordance with ALARA principle. TECHNIQUE #2: CT acquisition of the abdomen and pelvis. Coronal and sagittal reformatted images provided. A dose lowering technique was utilized for this procedure which may include but is not limited to dose reduction techniques, automated exposure control, and/or the use of iterative reconstruction in accordance with ALARA principle. IV Contrast: 95 mL Isovue 370 Oral contrast: None. FINDINGS: CHEST: AORTA AND MAJOR BRANCH VESSELS: Aorta normal in course and caliber. No intraluminal flap, intramural hematoma, or penetrating ulcer. Scattered atherosclerotic calcifications. Three-vessel aortic arch. Origin of the celiac trunk and superior mesenteric artery patent. Lower Neck: Visualized thyroid is normal. No pathologically enlarged supraclavicular lymph nodes are identified. Mediastinum: No pathologically enlarged mediastinal lymph nodes are identified. Decreased attenuation of the blood pool in comparison to major vessel prieto suggestive of anemia. The thoracic aorta is normal in caliber and appearance. The esophagus is normal in caliber and appearance. Heart: The heart size is normal. No pericardial thickening or effusion is identified. No coronary artery calcifications are present. Lungs: Linear consolidations, likely scarring/atelectasis. Mild bronchial wall thickening, unchanged. Pleural Space: No pleural effusion or pneumothorax is identified. ABDOMEN/PELVIS: Liver: Innumerable masses throughout the liver, largest 4.5 cm on axial imaging Gallbladder/biliary: Normal gallbladder. No biliary ductal dilation. Pancreas: Normal. Spleen: Normal. Adrenal glands: Normal. Kidneys and ureters: Normal. Bladder: Normal. Reproductive organs: Normal for age. Stomach/bowel: Normal. Appendix: Suspect prior appendectomy. Lymph nodes: No lymphadenopathy. Peritoneum: No intraperitoneal free air. No intraperitoneal free fluid. Vessels: Normal. MUSCULOSKELETAL: Abdominal wall: No hernia or soft tissue mass. Bones: No acute osseous abnormality. Soft tissues: Unremarkable. THORACIC AND LUMBAR SPINE: Morphology: No new fracture. T12 kyphoplasty extensive sclerotic lesions throughout the visualized skeleton. Partially imaged cervical fusion hardware. Large lytic component of L5 vertebral body lesion Alignment: Normal. Disc Levels: No significant degenerative changes. MUSCULOSKELETAL: Chest Wall: No rib or sternal fracture. Bilateral breast implants. Right chest port with tip in the right atrium. Pelvis: Chronic/healed fracture of the right ischium/ileum Muscles and Subcutaneous Tissues: No soft tissue injury. Proximal Appendicular Bones and Joints: No fracture or joint malalignment. Procedure Note Genet Ontiveros, - 05/10/[address] [place] [address] EXAMINATION: CT THOR SPINE WO CON, CTA CHEST+CT ABD+PEL W CON, CT LUMBSPINE WO CON REPORT DATE: 05/10/2024 8:44 PM INDICATION: Chest, abdominal, and Back pain. Liver biopsy yesterday.Stage IV breast cancer. COMPARISON(S): CT abdomen/pelvis 03/26/2024, CT thoracic, lumbar spine aswell as abdomen/pelvis 03/20/2024. TECHNIQUE #1: Gated contrast-enhanced axial CT images through the chestwere obtained before and after the administration of intravenous contrast.Coronal and sagittal reformations were provided. A dose loweringtechnique was utilized for this procedure which may include but is notlimited to dose reduction techniques, automated exposure control, and/orthe use of iterative reconstruction in accordance with ALARA principle. TECHNIQUE #2: CT acquisition of the abdomen and pelvis. Coronal andsagittal reformatted images provided. A dose lowering technique wasutilized for this procedure which may include but is not limited to dosereduction techniques, automated exposure control, and/or the use ofiterative reconstruction in accordance with ALARA principle. IV Contrast: 95 mL Isovue 370 Oral contrast: None. FINDINGS: CHEST: AORTA AND MAJOR BRANCH VESSELS: Aorta normal in course and caliber. No intraluminal flap, intramural hematoma, or penetrating ulcer. Scattered atherosclerotic calcifications. Three-vessel aortic arch. Origin of the celiac trunk and superior mesenteric artery patent. Lower Neck: Visualized thyroid is normal. No pathologically enlargedsupraclavicular lymph nodes are identified. Mediastinum: No pathologically enlarged mediastinal lymph nodes areidentified. Decreased attenuation of the blood pool in comparison tomajor vessel prieto suggestive of anemia. The thoracic aorta is normal incaliber and appearance. The esophagus is normal in caliber andappearance. Heart: The heart size is normal. No pericardial thickening or effusion isidentified. No coronary artery calcifications are present. Lungs: Linear consolidations, likely scarring/atelectasis. Mild bronchialwall thickening, unchanged. Pleural Space: No pleural effusion or pneumothorax is identified. ABDOMEN/PELVIS: Liver: Innumerable masses throughout the liver, largest 4.5 cm on axialimaging Gallbladder/biliary: Normal gallbladder. No biliary ductal dilation. Pancreas: Normal. Spleen: Normal. Adrenal glands: Normal. Kidneys and ureters: Normal. Bladder: Normal. Reproductive organs: Normal for age. Stomach/bowel: Normal. Appendix: Suspect prior appendectomy. Lymph nodes: No lymphadenopathy. Peritoneum: No intraperitoneal free air. No intraperitoneal free fluid. Vessels: Normal. MUSCULOSKELETAL: Abdominal wall: No hernia or soft tissue mass. Bones: No acute osseous abnormality. Soft tissues: Unremarkable. THORACIC AND LUMBAR SPINE: Morphology: No new fracture. T12 kyphoplasty extensive sclerotic lesionsthroughout the visualized skeleton. Partially imaged cervical fusionhardware. Large lytic component of L5 vertebral body lesion Alignment: Normal. Disc Levels: No significant degenerative changes. MUSCULOSKELETAL: Chest Wall: No rib or sternal fracture. Bilateral breast implants. Rightchest port with tip in the right atrium. Pelvis: Chronic/healed fracture of the right ischium/ileum Muscles and Subcutaneous Tissues: No soft tissue injury. Proximal Appendicular Bones and Joints: No fracture or jointmalalignment. IMPRESSION: 1. No evidence of aortic dissection or other acute aortic syndrome. 2. No CT evidence of post hepatic biopsy consultation. 3. No acute finding of the thoracic or lumbar spine. 4. Extensive metastatic disease throughout the liver and skeleton. Referred By: Interpreted By: Genet Ontiveros DO, 05/10/2024 8:44 PM us Sumaya Faustin MD CT Final Result * CTA CHEST+CT ABD+PEL W CON (05/10/2024 7:50 PM CONFERENCE MANAGER) Anatomical Region Laterality Modality Abdomen, Chest Computed Tomogra phy 05/10/2024 8:44 PM CONFERENCE MANAGER Impressions 05/10/2024 9:06 PM CONFERENCE MANAGER IMPRESSION: Extensive skeletal lesions and multiple hypodense or hypoenhancing hepatic lesions consistent with metastatic disease. Possible tiny hypoenhancing lesions in the spleen, cannot exclude splenic metastatic disease. Pulmonary infiltrates suggesting pneumonia. Ordered By: SUMAYA FAUSTIN Interpreted By: Dagoberto Gooden MD, 05/10/2024 9:05 PM Narrative 05/10/2024 9:06 PM CONFERENCE MANAGER [place] [id number] [place] [address] 05/10/2024, 1944 hours. HISTORY: Chest pain. Abdominal pain. Stage IV carcinoma. Chronic back and shoulder pain, increasing. EXAM: CT of the chest, and CT abdomen and pelvis with contrast. CT angiographic imaging of the chest was performed utilizing the intravenous administration of 95 mL Isovue-370 contrast. Images are submitted for review in the axial, the coronal and sagittal planes. Post processed MIP (maximum intensity projection) pulmonary angiographic imaging was performed of the chest in the coronal plane. A dose lowering technique was used for this procedure, which may include, but is not limited to, dose reduction technique, automated exposure control, the use of iterative reconstruction, and ALARA (As Low As Reasonably Achievable) / Image Gently techniques. Correlation to prior study of CT abdomen and pelvis 03/20/2024. FINDINGS: Skeletal findings: Operative changes of previous disc surgery lower cervical spine, with thin strut present spanning from C5 to C6 and buttressing plate fixation anteriorly from C5 to C6. There are extensive mixed lytic and blastic changes in the spine with involvement of C6, C7, T3, T4, T5, T6, T7, T8, T9, T10, T11, T12, each of the lumbar vertebra, sacrum, both iliac, both pubic bones, both ischium bones, each proximal femur, scattered involvement of the ribs, each scapula, and each proximal humerus consistent with extensive skeletal metastatic disease. CT of the chest: Good contrast opacification of nondistended central pulmonary arteries. No intraluminal filling defect within the central pulmonary arteries and no evidence of central pulmonary embolism. No definitive peripheral pulmonary embolism. The heart size is upper normal with a mild left ventricular configuration. No pericardial effusion. No pleural effusion. Patchy infiltrates in both lungs, most prominent in the perihilar and infrahilar regions right lung suggesting pneumonia. No pleural effusion. No pneumothorax. No remarkable hilar nor mediastinal mass or adenopathy. Breast implants are present bilaterally. CT abdomen and pelvis: There are innumerable hypodense or hypoenhancing lesions involving both lobes of the liver most suggestive of metastatic disease. No calcified stones in the gallbladder. No thickening of the gallbladder wall. No pericholecystic fluid collection. No bile duct dilatation. There may be some small hypodensities present in the spleen, cannot exclude sclerotic metastatic disease. The spleen is not enlarged. No mass or enlargement of the pancreas nor either adrenal gland. Both kidneys function. No renal parenchymal mass or cyst. No hydronephrosis. No ureterectasis and no evidence of obstructive uropathy. No retroperitoneal mass or adenopathy. No bowel distention nor evidence of bowel obstruction. There appear to be tiny surgical clips near the posterior wall the cecum which may indicate a previous appendectomy. In the pelvis, there is no mass or adenopathy. No ascites. Procedure Note Genet Ontiveros DO / Dagoberto Gooden MD - 05/10/[address] [place] [address] 05/10/2024, 1944 hours. HISTORY: Chest pain. Abdominal pain. Stage IV carcinoma. Chronic back andshoulder pain, increasing. EXAM: CT of the chest, and CT abdomen and pelvis with contrast. CT angiographic imaging of the chest was performed utilizing theintravenous administration of 95 mL Isovue-370 contrast. Images aresubmitted for review in the axial, the coronal and sagittal planes. Postprocessed MIP (maximum intensity projection) pulmonary angiographicimaging was performed of the chest in the coronal plane. A dose lowering technique was used for this procedure, which may include,but is not limited to, dose reduction technique, automated exposurecontrol, the use of iterative reconstruction, and ALARA (As Low AsReasonably Achievable) / Image Gently techniques. Correlation to prior study of CT abdomen and pelvis 03/20/2024. FINDINGS: Skeletal findings: Operative changes of previous disc surgery lower cervical spine, with thinstrut present spanning from C5 to C6 and buttressing plate fixationanteriorly from C5 to C6. There are extensive mixed lytic and blasticchanges in the spine with involvement of C6, C7, T3, T4, T5, T6, T7, T8,T9, T10, T11, T12, each of the lumbar vertebra, sacrum, both iliac, bothpubic bones, both ischium bones, each proximal femur, scatteredinvolvement of the ribs, each scapula, and each proximal humerusconsistent with extensive skeletal metastatic disease. CT of the chest: Good contrast opacification of nondistended central pulmonary arteries. Nointraluminal filling defect within the central pulmonary arteries and noevidence of central pulmonary embolism. No definitive peripheral pulmonaryembolism. The heart size is upper normal with a mild left ventricularconfiguration. No pericardial effusion. No pleural effusion. Patchyinfiltrates in both lungs, most prominent in the perihilar and infrahilarregions right lung suggesting pneumonia. No pleural effusion. Nopneumothorax. No remarkable hilar nor mediastinal mass or adenopathy.Breast implants are present bilaterally. CT abdomen and pelvis: There are innumerable hypodense or hypoenhancing lesions involving bothlobes of the liver most suggestive of metastatic disease. No calcifiedstones in the gallbladder. No thickening of the gallbladder wall. Nopericholecystic fluid collection. No bile duct dilatation. There may besome small hypodensities present in the spleen, cannot exclude scleroticmetastatic disease. The spleen is not enlarged. No mass or enlargement ofthe pancreas nor either adrenal gland. Both kidneys function. No renal parenchymal mass or cyst. Nohydronephrosis. No ureterectasis and no evidence of obstructive uropathy.No retroperitoneal mass or adenopathy. No bowel distention nor evidence ofbowel obstruction. There appear to be tiny surgical clips near theposterior wall the cecum which may indicate a previous appendectomy. In the pelvis, there is no mass or adenopathy. No ascites. IMPRESSION: Extensive skeletal lesions and multiple hypodense or hypoenhancing hepaticlesions consistent with metastatic disease. Possible tiny hypoenhancinglesions in the spleen, cannot exclude splenic metastatic disease. Pulmonary infiltrates suggesting pneumonia. Ordered By: SUMAYA FAUSTIN Interpreted By: Dagoberto Gooden MD, 05/10/2024 9:05 PM us Sumaya Faustin MD CT Final Result * ECG 12 lead (05/10/2024 7:49 PM CONFERENCE MANAGER) 05/10/2024 7:49 PM CONFERENCE MANAGER Narrative [facility] - 05/10/2024 8:42 PM CONFERENCE MANAGER [address] [place] [address] Test Date: 2024-05-10 Pat Name: BETO MARIJOHAN Department: 3 Room: EXAM 101 Gender: Female Protection Consultant: [facility] : 1990 Requested By: SUMAYA FAUSTIN Order Number: [id number] Reading MD: Lucia Encarnacion Measurements Intervals [place] Rate: 100 P: 31 MD: 161 QRS: 12 QRSD: 95 T: 25 QT: 345 QTc: 445 Interpretive Statements SINUS TACHYCARDIA LOW QRS VOLTAGE IN PRECORDIAL LEADS PROBABLE INFERIOR MYOCARDIAL INFARCTION , PROBABLY OLD ERENCE MANAGER Procedure Note Lucia Encarnacion MD - 05/10/[address] [place] [address] Test Date: 2024-05-10 Pat Name: BETO PETERSON Department: 3 Room: EXAM 101 Gender: Female Protection Consultant: [facility] : 1990 Requested By: SUMAYA FAUSTIN Order Number: [id number] Reading MD: Lucia Encarnacion Measurements Intervals [place] Rate: 100 P: 31 MD: 161 QRS: 12 QRSD: 95 T: 25 QT: 345 QTc: 445 Interpretive Statements SINUS TACHYCARDIA LOW QRS VOLTAGE IN PRECORDIAL LEADS PROBABLE INFERIOR MYOCARDIAL INFARCTION , PROBABLY OLD ERENCE MANAGER Sumaya Faustin MD ECG ORDERABLES Final Result Performing Organization Address [facility] Co de Phone Number [facility] * TROPONIN, QUANT (05/10/2024 7:11 PM CONFERENCE MANAGER) TROPONIN I HIGH SENSITIVITY <4 0 - 51 ng/L 05/10/2024 7:34 PM CONFERENCE MANAGER [facility] 05/10/2024 7:11 PM CONFERENCE MANAGER Sumaya Faustin MD LABORATORY Final Result Performing Organization Address [facility] Co de Phone Number [facility] [address] [place] [address], [place] [phone] * LIPASE (05/10/2024 7:11 PM CONFERENCE MANAGER) Pathologist [facility] LIPASE 16 16 - 77 UNITS/L 05/10/2024 7:34 PM CONFERENCE MANAGER [facility] 05/10/2024 7:11 PM CONFERENCE MANAGER Sumaya Faustin MD LABORATORY Final Result Performing Organization Address [facility] de Phone Number [facility] [address] [place] [address], [place] [phone] * US GD TARGETED LIVER BX (05/09/2024 1:30 PM CONFERENCE MANAGER) Anatomical Region Laterality Modality Abdomen Ultrasound, Radi ographic Imaging 05/09/2024 8:48 PM CONFERENCE MANAGER Impressions 05/17/2024 8:32 AM CONFERENCE MANAGER Impression: Procedure note for ultrasound-guided liver mass biopsy. PLAN: 1. Discharge to home when recovery room criteria is met. 2. Follow-up pathology results. IR follow-up as needed. The attending radiologist, Dr. Richard, was present for all critical portions of the procedure, has reviewed the images, and agrees with the content of this report. Dictated By: PURVI Luna on 05/09/2024 8:48 PM Ordered By: PERLA ENGLAND Interpreted By: PURVI Luna, 05/09/2024 8:48 PM Narrative 05/17/2024 8:32 AM CONFERENCE MANAGER [place] [id number] IR PROCEDURE NOTE - ULTRASOUND GUIDED LIVER MASS BIOPSY Pre op diagnosis: Liver metastasis Post Op Diagnosis: same Procedure: Ultrasound-guided left lobe of the liver biopsy Primary provider: Aston Rebollar PA-C Supervising provider: Chris Richard M.D. Candy [employer] Printer: none Anesthesia: Local - 0.1% lidocaine IV conscious sedation was administered and monitored by a qualified interventional radiology nurse under supervision of the interventional physician field administrative assistant. There was continuous monitoring of vital signs including pulse oximetry, end-tidal CO2, and EKG. Total intraservice or ujgj-ew-cpar sedation time: 16 minutes. Technique /Findings: Procedure and risks were discussed with patient in detail including risks of bleeding, liver injury, bile leak, injury to adjacent organs, pneumothorax, possible need for transfusions or surgery etc. Informed consent was obtained. Preliminary ultrasound performed. A midline approach was chosen. Suitable skin site was marked . The site was prepped and draped in sterile fashion. All elements of maximal sterile barrier technique as well as all elements of sterile ultrasound technique were utilized during this procedure. Timeout was performed. Using real-time ultrasound guidance local anesthetic was administered down to the liver capsule. Ultrasound guidance was then used to guide an introducer needle into the left lower liver and through the left lobe of the liver mass. The stylette was then removed from the introducer needle and a 18-gauge Bard Victoria needle was then advanced under real-time ultrasound guidance through the introducer needle and then activated with biopsy specimen obtained. A blunt stylette was placed into the introducer and the biopsy specimen was removed. The bladder stylette was then removed from the introducer and the 18-gauge Bard Victoria needle was then advanced under real-time ultrasound guidance through the introducer needle for second time and then activated with biopsy specimen obtained. Specimen adequacy was confirmed by a pathologist. Pressure was applied at the site with the transducer for a few minutes. Post biopsy imaging demonstrated no evidence of fluid or hemorrhage at the site. Sterile dressing was applied. Patient was transferred back to the holding room in satisfactory condition for routine postbiopsy observation. Complications: none Estimated Blood Loss: nil Specimens removed: 18-gauge left lobe of the liver mass biopsy x2. Condition: good Procedure Note Chris Richard MD - 05/17/2024 [place] [id number] IR PROCEDURE NOTE - ULTRASOUND GUIDED LIVER MASS BIOPSY Pre op diagnosis: Liver metastasis Post Op Diagnosis: same Procedure: Ultrasound-guided left lobe of the liver biopsy Primary provider: Aston Rebollar PA-C Supervising provider: Chris Richard M.D. Candy Starch Mold Printer: ubaldo Anesthesia: Local - 0.1% lidocaine IV conscious sedation was administered and monitored by a qualifiedinterventional radiology nurse under supervision of the interventionalphysician field administrative assistant. There was continuous monitoring of vital signsincluding pulse oximetry, end-tidal CO2, and EKG. Total intraservice rsbqvx-fy-udtz sedation time: 16 minutes. Technique /Findings: Procedure and risks were discussed with patient in detail including risksof bleeding, liver injury, bile leak, injury to adjacent organs,pneumothorax, possible need for transfusions or surgery etc. Informedconsent was obtained. Preliminary ultrasound performed. A midline approach was chosen. Suitableskin site was marked . The site was prepped and draped in sterile fashion.All elements of maximal sterile barrier technique as well as all elementsof sterile ultrasound technique were utilized during this procedure. Timeout was performed. Using real-time ultrasound guidance local anesthetic was administered downto the liver capsule. Ultrasound guidance was then used to guide anintroducer needle into the left lower liver and through the left lobe ofthe liver mass. The stylette was then removed from the introducer needleand a 18-gauge Bard Victoria needle was then advanced under real-timeultrasound guidance through the introducer needle and then activated withbiopsy specimen obtained. A blunt stylette was placed into the introducerand the biopsy specimen was removed. The bladder stylette was then removedfrom the introducer and the 18-gauge Bard Victoria needle was then advancedunder real-time ultrasound guidance through the introducer needle forsecond time and then activated with biopsy specimen obtained. Specimenadequacy was confirmed by a pathologist. Pressure was applied at the sitewith the transducer for a few minutes. Post biopsy imaging demonstrated noevidence of fluid or hemorrhage at the site. Sterile dressing was applied. Patient was transferred back to the holding room in satisfactory conditionfor routine postbiopsy observation. Complications: none Estimated Blood Loss: nil Specimens removed: 18-gauge left lobe of the liver mass biopsy x2. Condition: good Impression: Procedure note for ultrasound-guided liver mass biopsy. PLAN: 1. Discharge to home when recovery room criteria is met. 2. Follow-up pathology results. IR follow-up as needed. The attending radiologist, Dr. Richard, was present for all criticalportions of the procedure, has reviewed the images, and agrees with thecontent of this report. Dictated By: PURVI Luna on 05/09/2024 8:48 PM Ordered By: PERLA ENGLAND Interpreted By: PURVI Luna, 05/09/2024 8:48 PM Perla England MD ULTRASOUND Final Result * (ABNORMAL) PROTIME/INR, VENOUS (PROTHROMBIN TIME) (05/09/2024 10:42 AM CONFERENCE MANAGER) PROTIME 12.9(H) 9.4 - 12.5 SEC 05/09/2024 11:13 AM CONFERENCE MANAGER [facility] INR 1.1 0.8 - 1.1 05/09/2024 11:13 AM CONFERENCE MANAGER [facility] 05/09/2024 10:4 2 AM CONFERENCE MANAGER Chris Richard MD LABORATORY Final Result [facility] [address] [place] [address], [place] [phone] [id number] * POCT urine (back office) (05/09/2024) URINE HCG TEST NEGATIVE NEGATIVE [facility] Internal Control: VALID VALID [facility] 05/09/2024 Perla England MD POINT OF CARE TEST ORDERABLES Final Result [facility] [address] [place] [address], [id number] * Pathology (05/09/2024 12:00 AM CONFERENCE MANAGER) PATHOLOGY [facility] Department of Laboratory Medicine [address] [place] [address] , extension [phone] Pathology Report Surgical Pathology Report Name: BETO PETERSON Specimen #: [id number] Age: 9 1990 (Age: 34) Location: [facility] Sex: F Procedure Date: 05/09/2024 Hospital #: [id number] Date Received: 05/09/2024 Date Reported: 05/11/2024 Provider: PERLA REBOLLAR PA-C Source: Liver, left, needle biopsy Clinical History: History of breast cancer FINAL DIAGNOSIS: Liver, ultrasound-guided needle biopsy: -Metastatic adenocarcinoma consistent with breast primary origin. Diagnosis Comment: Immunohistochemical stains reveal the malignant cells are positive for cytokeratin AE1/AE3, CK7, GATA3, estrogen receptor, and progesterone receptor and have focal positive staining for mammaglobin. The malignant cells are negative for BRST-2, CK20, and HER2 (score 0). The findings support the diagnosis of metastatic adenocarcinoma consistent with breast primary origin. Gross Description: Received in formalin, labeled with a patient label and not further designated, are 3 less than 0.1 cm diameter cores of white-mares tissue, each 0.7-0.8 cm in length. Also received are 2 touch preparation slides. The specimen submitted in cassette 1. Gross examination (when applicable), interpretation, and sign out were performed at [facility], [address] [place] [address]. All immunohistochemical and histochemical tests were developed by and performed at [facility], [address] [place] [address]. All tests reported here have not been cleared or approved by the U.S. Food and Drug Administration (FDA). This laboratory is regulated under CLIA as qualified to perform high-complexity testing. These tests are used for clinical purposes. They should not be regarded as investigational or for research. Positive and negative controls show appropriate reactivity. Intraoperative Diagnosis: Liver, needle biopsy, touch preparation immediate evaluation for adequacy: -Episode #1, passes #12: Adequate (Neo Meza MD). The immediate onsite evaluation was performed and interpreted at [facility] in [place], [place]. Electronically Signed Out NEO MEZA MD [facility] 05/09/2024 05/09/2024 2:2 5 PM CONFERENCE MANAGER Comment:Liver, left, needle biopsy Perla England MD PATHOLOGY/CYTOLOGY ORDERABLES Final Result [facility] [address] [place] [address], [id number] * CT ABD+PEL W CON (03/20/2024 1:19 PM CONFERENCE MANAGER) Anatomical Region Laterality Modality Abdomen Computed Tomogra phy 03/20/2024 1:29 PM CONFERENCE MANAGER Impressions 03/20/2024 1:38 PM CONFERENCE MANAGER Impression: 1. Extensive multifocal sclerotic osseous metastasis identified. No distinct acute pathologic fracture is identified. 2. Multiple hypodense liver lesions are identified, concerning for multifocal liver metastasis. 3. No lymphadenopathy identified within the abdomen or pelvis. Ordered By: NARCISA CAMACHO Interpreted By: Bjorn Leo MD, 03/20/2024 1:29 PM Narrative 03/20/2024 1:38 PM CONFERENCE MANAGER [address] [place] [address] Examination: CT abdomen and pelvis with IV contrast. Clinical Information: BACK AND FLANK PAIN, HX OF METASTATIC BREAST CANCER, KNOWN L HIP FRACTURE, NO FALLS Comparison:No comparison. Technique: IV contrast: 87 mL Isovue 370. Oral contrast: None. Technical comments: Standard technique. Dose reduction: This CT exam was performed using one or more of the following dose reduction techniques: Automated exposure control, adjustment of the mA and/or kV according to patient size, and/or use of iterative reconstruction technique. Findings: LOWER CHEST Heart is normal in size. Bibasilar atelectasis. No pleural or pericardial effusions. UPPER ABDOMEN Liver and bile ducts: Multiple hypodense lesions are scattered throughout both lobes of liver, raising concern for multifocal liver metastasis. Portal vein and hepatic veins are patent. No biliary dilatation. Gallbladder: Surgically absent. Pancreas: Unremarkable. Spleen: Normal. RETROPERITONEUM Adrenals: Normal. Kidneys: Unremarkable. Lymph nodes: No lymphadenopathy in the abdomen or pelvis. BOWEL AND PERITONEUM Bowel: Normal in caliber and wall thickness. Free air or fluid: None. VASCULATURE The abdominal aorta is normal caliber. PELVIS No abnormality. BONES/SOFT TISSUES Extensive widespread multifocal sclerotic osseous metastasis are identified. Compression deformity with vertebroplasty changes identified involving the T12 vertebral body. No distinct acute pathologic fracture is identified. Procedure Note Bjorn Leo MD - 03/20/[address] [place] [address] Examination: CT abdomen and pelvis with IV contrast. Clinical Information: BACK AND FLANK PAIN, HX OF METASTATIC BREAST CANCER,KNOWN L HIP FRACTURE, NO FALLS Comparison:No comparison. Technique: IV contrast: 87 mL Isovue 370. Oral contrast: None. Technical comments: Standard technique. Dose reduction: This CT exam was performed using one or more of thefollowing dose reduction techniques: Automated exposure control,adjustment of the mA and/or kV according to patient size, and/or use ofiterative reconstruction technique. Findings: LOWER CHEST Heart is normal in size. Bibasilar atelectasis. No pleural or pericardialeffusions. UPPER ABDOMEN Liver and bile ducts: Multiple hypodense lesions are scattered throughoutboth lobes of liver, raising concern for multifocal liver metastasis.Portal vein and hepatic veins are patent. No biliary dilatation. Gallbladder: Surgically absent. Pancreas: Unremarkable. Spleen: Normal. RETROPERITONEUM Adrenals: Normal. Kidneys: Unremarkable. Lymph nodes: No lymphadenopathy in the abdomen or pelvis. BOWEL AND PERITONEUM Bowel: Normal in caliber and wall thickness. Free air or fluid: None. VASCULATURE The abdominal aorta is normal caliber. PELVIS No abnormality. BONES/SOFT TISSUES Extensive widespread multifocal sclerotic osseous metastasis areidentified. Compression deformity with vertebroplasty changes identifiedinvolving the T12 vertebral body. No distinct acute pathologic fracture isidentified. Impression: 1. Extensive multifocal sclerotic osseous metastasis identified. Nodistinct acute pathologic fracture is identified. 2. Multiple hypodense liver lesions are identified, concerning formultifocal liver metastasis. 3. No lymphadenopathy identified within the abdomen or pelvis. Ordered By: NARCISA CAMACHO Interpreted By: Bjorn Leo MD, 03/20/2024 1:29 PM us Narcisa Camacho DO CT Final Result from Last 3 Months Insurance [employer] Care Teams Staff Field Engineer Relationship Specialty Start Date End Date Bautista Valderrama MD [address] [place] [address] PCP - General INTERNAL MEDICINE 05/12/22
--- OUTSIDE RECORDS SUMMARY | 2024-06-08 14:53 | XMS_ITS | Encounter Summary ---
Author Organization [facility] Address [address] [place] [address] Care Team Providers Care Animal Humane Agent Supervisor Name Role Phone Bautista Valderrama MD Primary Care Provider [phone] Encounter Details Date Type Department Care Team (Latest Contact Info) Description 06/07/2024 Travel Social History Tobacco Use Types Packs/Day Years Used Date Smoking Tobacco: Never Smokeless Tobacco: Never Alcohol Use Standard Drinks/Week Comments Not Currently 0 (1 standard drink = 0.6 oz pur e alcohol) Comments No Sex and Gender Information Value Date Recorded Sex Assigned at Female 05/09/2024 9:43 AM CLEAT LAYER Legal Sex Female 5:53 PM CLEAT LAYER Gender Identity Not on file Sexual Orientation Not on file documented as of this encounter Plan of Treatment Not on file documented as of this encounter Visit Diagnoses Not on filedocumented in this encounter Care Teams Animal Humane Agent Supervisor Relationship Specialty Start Date End Date Bautista Valderrama MD [address] [place] [address] PCP - General INTERNAL MEDICINE 05/12/22 documented as of this encounter
--- OUTSIDE RECORDS SUMMARY | 2024-06-08 14:53 | XMS_ITS ---
Author Organization [facility] Address [address] [place] [address] Care Team Providers Care Director Internal Audit Name Role Phone Tad Sanz MD Unavailable [phone] Adam Tan MD Unavailable Aft, Dalila Hickman MD PhD Unavailable [phone] Ma, Josselin Jeffrey MD PhD Unavailable SyOwen patterson TABLE INSPECTOR Unavailable [phone] Lisbet Kelley MD Unavailable Derek Valderrama MD Primary Care Provider [phone] Active Problems Problem Noted Date Diagnosed Date [...] (02/09/2023 2:43 AM CDT): 02/05: blood cultures ([facility]) come back positive, one of which was drawn from her port. (Call back [phone]. ) Anarobic culture grew gram + cocci [...] vomiting includes medication side effects (ribociclib/memantine) vs ZIGZAGGER malignancy (post radiation related). No obstructive symptoms [...] vomiting includes medication side effects (ribociclib/memantine) vs ZIGZAGGER malignancy (post radiation related). No obstructive symptoms [...] vomiting includes medication side effects (ribociclib/memantine) vs ZIGZAGGER malignancy (post radiation related). No obstructive symptoms [...] vomiting includes medication side effects (ribociclib/memantine) vs ZIGZAGGER malignancy (post radiation related). No obstructive symptoms [...] out upon extensive comparison of imaging from [place] and the one done at [facility] as IP. - Pt was on Eliquis [...] Morbid obesity with BMI of 40.0-44.9, adult 08/0 12/2020 Class 2 obesity with body ma ss index (BMI) of 36.0 to 36.9 in adult 10/21/2020 Postoperative wound infection 10/16/2020 Erythema of breast 10/16/2020 Overview (10/16/2020): Added automatically from request for surgery [id number] History of vitamin D deficiency 10/01/2020 Excess skin of upper extremity 09/07/2020 Overview (09/07/2020): Added automatically from request for surgery [id number] Acquired deformity of upper extremity 09/07/2020 Overview (09/07/2020): Added automatically from request for surgery [id number] Encounter for follow-up surveillance of breast c ancer 08/04/2020 Unwanted fertility 10/08/2019 Overview (10/08/2019): Added automatically from request for surgery [id number] Absence of breast, acquired, bilateral 0 Overview (09/27/2019): Added automatically from request for surgery [id number] Follow-up examination, following other surgery 0 09/06/2019 Malignant neoplasm of upper- inner quadrant of left breast in female, estrogen receptor positive (CMS/HCC) 04/30/2019 Cancer Staging:Pathologic:Stage IB(pT2, pN0(sn), cM0, G3, ER+, AZ+, HER2-, Oncotype DX score: 20) - Signed [...] (12/22/2021 4:53 PM CDT): -H x of ER/AZ+, HER2 negative breast cancer that recurred after [...] (12/21/2021 11:24 PM CDT): -H x of ER/AZ+, HER2 negative breast cancer that recurred after [...] a general diet and having bowel movements. 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) (HCC)Malignant neoplasm metastatic to brain (HCC)Malignant neoplasm of upper-inner quadrant of left breast in female, estrogen receptor positive (HCC) Treatment Medications Current Day (Day 1 , Cycle 3 - Planned for 03/12/2024) Next Day (Day 1, Cycle 4 - Planned for 04/09/2024) capivasertib (TRUQAP)fulvestrant (FASLODEX) capivasertib (TRUQAP) 200 mg tabletfulvestrant (FASLODEX) injection 500 mg capivasertib (TRUQAP) 200 mg tabletfulvestrant (FASLODEX) injection 500 mg DENOSUMAB (XGEVA) INJECTION* Plan Start Date:11/30/2021 Plan Provider:Josselin De Oliveira MD PhD Linked Problems Malignant neoplasm of upper- inner quadrant of left breast in female, estrogen receptor positive (HCC)Malignant neoplasm metastatic to bone (CMS/HCC) (HCC) Treatment Medications No medications scheduled. IV Maintenance Therapy Plan* Plan Start Date:01/03/2023 Plan Provider:Josselin De Oliveira MD PhD Linked Problems Malignant neoplasm metastati c to bone (CMS/HCC) (HCC)Malignant neoplasm metastatic to brain (HCC)Malignant neoplasm of upper-inner quadrant of left breast in female, estrogen receptor positive (HCC) Treatment Medications No medications scheduled. Past Plans Oncology Chemotherapy Treatment Plan Name Start Date Discontinue Date Treatment Medications Discontinue Reason Plan Provider Cycles Fam-Trastuzum ab Deruxtecan-nx ki 21 Day Cycles - Breast 3 01/09/2024 dexAMETHasone (DECADRON)fam-tr astuzumab deruxtecan-nxki (ENHERTU)fam-tra stuzumab deruxtecan-nxki (ENHERTU) IVPB Progression Josselin De Oliveira MD PhD 16 of 19 cycles started Leuprolide 28 Day Cycles - Breast 11/23/2021 12/13/2022 leuprolide (LUPRON)leuproli de (monthly) (LUPRON) Progressive Disease Josselin De Oliveira MD PhD 13 of 14 cycles started Goserelin 28 Day Cycles - Breast (continuation of therapy) 11/23/2021 11/11/2021 goserelin (ZOLADEX) Financial Josselin De Oliveira MD PhD Treatment not started Goserelin Every 3 Months - Breast (continuation of therapy before moving out of state) 2 11/09/2021 goserelin (ZOLADEX) Therapy Complete Josselin De Oliveira MD PhD 1 of 8 cycles started Goserelin 84 Day Cycles - Breast 02/11/20 20 06/01/2021 goserelin (ZOLADEX) Financial Josselin De Oliveira MD PhD 8 of 17 cycles started Oncology Treatment (2) Plan Name Start Date Discontinue Date Treatment Medications Discontinue Reason Plan Provider Cycles Elacestrant PO 28 Day Cycles - Breast 3 02/14/2023 elacestrant (ORSERDU) Provider Discretion Josselin De Oliveira MD PhD Treatment not started Capecitabine PO 28 day Cycles - Breast 3 12/13/2022 capecitabine (XELODA) Progressive Disease Josselin De Oliveira MD PhD 2 of 8 cycles completed [id number] - [facility] - Breast - OP-1250 - 003 - Dose Escalation - Treatment Group 1 - OP-1250 / Ribociclib 3 08/10/2022 [facility] OP-1250 (2022-03-077/O P-1250-003)[facility] ribociclib (2022-03-7/O P-1250-003) Provider Discretion Josselin De Oliveira MD PhD Treatment not started Radiation Treatments * Plan Last Treated On Elapsed Days Fractions Treated Prescribed Fraction Dose Prescribed Total Dose LT CW BOOST 03/27/2020 28 4 250 cGy 1,000 cG y LT CW_LNs 03/19/2020 20 16 266 cGy 4,256 cGy Reference Point Last Treated On Elapsed Days Session Dose Total Dose LT CW BOOST 03/27/2020 28 250 cGy 1,000 cGy LCW_LNs 03/19/2020 20 266 cGy 4,256 cGy Lifetime Dose Tracking * Chemical Lifetime Dose Automatic Entry Manual Entr y Fluoro Time 6.5 minutes 6.5 minutes 0 minutes Air kerma at the reference point (Ka,r) 121.82 mGy 1 21.82 mGy 0 mGy DLP 25,436 mGycm 25,436 mGycm 0 mGycm Resolved Problems Problem Noted Date Diagnosed Date [...]
--- OUTSIDE RECORDS SUMMARY | 2024-06-08 14:53 | XMS_ITS | Encounter Summary ---
Author Organization [facility] Address [address] [place] [address] Phone Care Team Providers Care Assembly Associate Name Role Phone Derek Valderrama MD Primary Care Provider [phone] Tad Sanz MD Unavailable [phone] Adam Tan MD Unavailable Aft, Dalila Hickman MD PhD Unavailable [phone] Ma, Josselin Jeffrey MD PhD Unavailable Owen Dan SURFACE LOGGING SYSTEMS LOGGER Unavailable [phone] Adelfo Shabazz MD Primary Care Pr ovider Hui Newton RN Unavailable Alvino, Josselin Jeffrey MD PhD Primary Care Provide r Lisbet Kelley MD Unavailable Derek Valderrama MD Primary Care Provider [phone] Encounter Details Date Type Department Care Team (Latest Contact Info) Description 09/12/2021 Orders Only [facility] Scanning, Provider Social History Tobacco Use Types Packs/Day Years Used Date Smoking Tobacco: Former Cigarettes Q uit: 03/05/2020 Smokeless Tobacco: Never Alcohol Use Standard Drinks/Week Comments Yes 2 (1 standard drink = 0.6 oz pur e alcohol) AUDIT-C Answer Date Recorded Q1: How often do you have a drink containing alc ohol? Never 12/04/2020 Average Number of Drinks Not on file 021 Q3: How often do you have si x or more drinks on one occasion? Never 12/04/2020 Exercise Vital Sign Answer Date Recorde d [...] on file Legal Sex Female 2:49 AM TOUR ESCORT Gender Identity Female 06/06/2022 9:23 PM TOUR ESCORT Sexual Orientation Not on file documented as of this encounter Plan of Treatment Upcoming Encounters Date Type Department Care Team (Latest Contact Info) Description 06/11/2031 Orders Only [facility] Scanning, Provider documented as of this encounter Procedures Procedure Name Priority Date/Time Associated Diagnosis Comments SCAN - RADIOLOGY/IMAGING 09/12/2021 documented in this encounter Results * SCAN - RADIOLOGY/IMAGING (09/12/2021) Anatomical Region Laterality Modality Other Provider Scanning Final Result documented in this encounter Visit Diagnoses Not on filedocumented in this encounter Additional Health Concerns Infection Onset Date Last Indicated Resolved Time COVID: Suspected 10/29/2021 10/29/2021 10/29/2021 2:22 PM CDT COVID: Suspected 10/09/2022 10/09/2022 10/09/2022 6:33 PM CDT C. difficile suspected 07/01/2023 07/01/202306/30 6:59 PM TOUR ESCORT COVID: Suspected 07/01/2023 07/01/2023 07/01/2023 11:45 AM TOUR ESCORT Norovirus suspected 07/01/2023 07/01/2023 07/01/19 7:24 PM TOUR ESCORT Norovirus 07/01/2023 07/01/2023 07/15/2023 3:05 AM CDT COVID: Suspected 12/29/2023 12/29/2023 12/29/2023 11:35 AM CDT documented as of this encounter Care Teams Assembly Associate Relationship Specialty Start Date End Date Derek Valderrama MD PCP - General 01/10/14 06/13/22 Adelfo Shabazz MD [address] [place] [address] PCP - General Radiation Oncology 06/14/22 10/10/22 Josselin De Oliveira MD PhD [address] [facility] [address] [place] [address] PCP - General Medical Oncology 10/11/22 01/10/23 Derek Valderrama MD [address] [place] [address] PCP - General Internal Medicine 01/11/23 Tad Sanz MD [address] [place] [address] Referring Physician Obstetrics and Gynecology 03/26/19 Adam Tan MD [address] [facility] [address] [place] [address] Radiation Oncologist Radiation Oncology 02/11/20 Aft, Dalila Hickman MD PhD [address] [place] [address] Surgeon Surgical Oncology 02/11/20 Josselin De Oliveira MD PhD [address] [facility] [address] [place] [address] Medical Oncologist/Endoscopy Technician Medical Oncology 02/13/20 Owen Dan NP [address] [place] [address] DR ADAMES [address] [place] [address] Nurse Practitioner Nurse Practitioner 12/09/20 Hui Newton, SKYE [address] [place] [address] Nurse Navigator 08/17/22 08/23/22 Lisbet Kelley MD [address] [place] [address] Anesthesiologist Pain Management 01/07/23 documented as of this encounter
--- OUTSIDE RECORDS SUMMARY | 2024-06-08 14:53 | XMS_ITS | Encounter Summary ---
Author Organization [facility] Address [address] [place] [address] Phone Care Team Providers Care Drying Rack Changer Name Role Phone Derek Valderrama MD Primary Care Provider [phone] Tad Sanz MD Unavailable [phone] Adam Tan MD Unavailable Aft, Dalila Hickman MD PhD Unavailable [phone] Ma, Josselin Jeffrey MD PhD Unavailable Owen Dan ENTRY LEVEL ACCOUNTANT Unavailable [phone] Adelfo Shabazz MD Primary Care Pr ovider Hui Newton RN Unavailable Alvino, Josselin Jeffrey MD PhD Primary Care Provide r Lisbet Kelley MD Unavailable Derek Valderrama MD Primary Care Provider [phone] Encounter Details Date Type Department Care Team (Latest Contact Info) Description 09/26/2021 Orders Only [facility] Scanning, Provider [...] on file Legal Sex Female 2:49 AM ENTERPRISE RESOURCE ANALYST Gender Identity Female 06/06/2022 9:23 PM ENTERPRISE RESOURCE ANALYST Sexual Orientation Not on file documented as of this encounter Plan of Treatment Upcoming Encounters Date Type Department Care Team (Latest Contact Info) Description 06/11/2031 Orders Only [facility] Scanning, Provider documented as of this encounter Procedures Procedure Name Priority Date/Time Associated Diagnosis Comments SCAN - RADIOLOGY/IMAGING 09/26/2021 documented in this encounter Results * SCAN - RADIOLOGY/IMAGING (09/26/2021) Anatomical Region Laterality Modality Other Provider Scanning Final Result documented in this encounter Visit Diagnoses Not on filedocumented in this encounter Additional Health Concerns Infection Onset Date Last Indicated Resolved Time COVID: Suspected 10/29/2021 10/29/2021 10/29/2021 2:22 PM CDT COVID: Suspected 10/09/2022 10/09/2022 10/09/2022 6:33 PM CDT C. difficile suspected 07/01/2023 07/01/202306/30 6:59 PM ENTERPRISE RESOURCE ANALYST COVID: Suspected 07/01/2023 07/01/2023 07/01/2023 11:45 AM ENTERPRISE RESOURCE ANALYST Norovirus suspected 07/01/2023 07/01/2023 07/01/19 7:24 PM ENTERPRISE RESOURCE ANALYST Norovirus 07/01/2023 07/01/2023 07/15/2023 3:05 AM CDT COVID: Suspected 12/29/2023 12/29/2023 12/29/2023 11:35 AM CDT documented as of this encounter Care Teams Drying Rack Changer Relationship Specialty Start Date End Date Derek Valderrama MD PCP - General 01/10/14 06/13/22 Adelfo Shabazz MD [address] [place] [address] PCP - General Radiation Oncology 06/14/22 10/10/22 Josselin De Oliveira MD PhD [address] [facility] [address] [place] [address] PCP - General Medical Oncology 10/11/22 01/10/23 Derek Valderrama MD [address] [place] [address] PCP - General Internal Medicine 01/11/23 Tad Sanz MD [address] [place] [address] Referring Physician Obstetrics and Gynecology 03/26/19 Adam Tan MD [address] [facility] # [address] [place] [address] Radiation Oncologist Radiation Oncology 02/11/20 Aft, Dalila Hickman MD PhD [address] [place] [address] Surgeon Surgical Oncology 02/11/20 Josselin De Oliveira MD PhD [address] [facility] [address] [place] [address] Medical Oncologist/Motorcycle Subassembler Medical Oncology 02/13/20 Owen Dan NP [address] [place] [address] DR ADAMES [address] [place] [address] Nurse Practitioner Nurse Practitioner 12/09/20 Hui Newton, SKYE [address] [place] [address] Nurse Navigator 08/17/22 08/23/22 Lisbet Kelley MD [address] [place] [address] Anesthesiologist Pain Management 01/07/23 documented as of this encounter
--- OUTSIDE RECORDS SUMMARY | 2024-06-08 14:53 | XMS_ITS | Patient Health Summary ---
Author Organization [facility] Address [address] [facility] [place] [address] Care Team Providers Care Musical Engineer Name Role Phone Derek Valderrama MD Primary Care Provider [phone] Note from [facility],non-owned Affiliates and Associated Physician Practices is amultiple site organization consisting of ambulatory clinics and hospital sitesin [place], [place], [place] and [place]. This disclosure is being madepursuant to the Care Everywhere program and may not contain all information available regarding this patient. Last updated 18.[facility] [address] Allergies * Morphine(Itching) * Penicillins(Itching) * Hydrocodone-Acetaminophen(Itching) Medications Be aware that medications may not be up to date on this document. Always verify current medications with the patient. No known medications Social History Tobacco Use Types Packs/Day Years Used Date Smoking Tobacco: Never Smokeless Tobacco: Never Tobacco Cessation:Counseling Given: No Alcohol Use Standard Drinks/Week Comments Yes 0 (1 standard drink = 0.6 oz pur e alcohol) occ Sex and Gender Information Value Date Recorded Sex Assigned at Not on file Gender Identity Not on file Sexual Orientation Not on file Last Filed Vital Signs Vital Sign Reading Time Taken Comments Blood Pressure 110/78 05/12/2021 10:03 AM ACCOUNT SERVICES ASSOCIATE Pulse 79 05/12/2021 10:03 AM ACCOUNT SERVICES ASSOCIATE Temperature 37.1 C (98.8 F) 05/12/2021 10:03 AM ACCOUNT SERVICES ASSOCIATE Respiratory Rate 16 05/12/2021 10:03 AM ACCOUNT SERVICES ASSOCIATE Oxygen Saturation 98% 05/12/2021 10:03 AM ACCOUNT SERVICES ASSOCIATE Inhaled Oxygen Concentration - - Weight 102.1 kg (225 lb) 05/12/2021 10:03 AM ACCOUNT SERVICES ASSOCIATE Height 157.5 cm (5' 2 ) 05/12/2021 10:03 AM ACCOUNT SERVICES ASSOCIATE Body Mass Index 41.15 05/12/2021 10:03 AM ACCOUNT SERVICES ASSOCIATE Procedures * SARS-COV-2 PCR 2 DAY TAT(Performed 05/12/2021) Performed for Acute viral syndrome * COVID-19 SARS-COV-2 PCR QUAL ([facility])(Performed 05/12/2021) Performed for Acute viral syndrome * SARS-COV-2 (COVID-19) AG (AMB) POCT(Performed 05/12/2021) Performed for Acute viral syndrome * GROSS + MICRO EXAM(Performed 12/07/2007) Results * SARS-COV-2 PCR 2 DAY TAT (05/12/2021 10:28 AM ACCOUNT SERVICES ASSOCIATE) SARS-CoV-2 PCR 2 DAY TAT [facility] 05/12/2021 10:2 8 AM ACCOUNT SERVICES ASSOCIATE 05/13/2021 Narrative Resulting Agency Comment Lab Testing performed at: [facility] [address] [facility] [id number] Brittanie Zenobia HIDE AND SKIN CLASSER-ROLLED GOLD PLATER LAB - MICROBIOL OGY ORDERABLES [facility] B[facility] [address] [place] [address] * COVID-19 SARS-COV-2 PCR QUAL ([facility]) (05/12/2021 10:28 AM ACCOUNT SERVICES ASSOCIATE) SARS-CoV-2 LC Not Detected Not Detected [facility] Comment: This nucleic acid amplification test was developed and its performance characteristics determined by [employer]. Nucleic acid amplification tests include RT-PCR and TMA. This test has not been FDA cleared or approved. This test has been authorized by FDA under an Emergency Use Authorization (EUA). This test is only authorized for the duration of time the declaration that circumstances exist justifying the authorization of the emergency use of in vitro diagnostic tests for detection of SARS-CoV-2 virus and/or diagnosis of COVID-19 infection under section 564(b)(1) of the Act, 21 U.S.C. 360bbb-3(b) (1), unless the authorization is terminated or revoked sooner. When diagnostic testing is negative, the possibility of a false negative result should be considered in the context of a patient's recent exposures and the presence of clinical signs and symptoms consistent with COVID-19. An individual without symptoms of COVID-19 and who is not shedding SARS-CoV-2 virus would expect to have a negative (not detected) result in this assay. Microbiology SPECIMEN FROM NASOPHARYNGEAL STRUCTURE / Unknown 05/12/2021 10:28 AM ACCOUNT SERVICES ASSOCIATE 05/13/2021 Narrative Resulting Agency Comment Lab Testing performed at: [facility] [address] [facility] [address] [place] [id number] Brittanie RENE LAB - MICROBIOL OGY ORDERABLES [facility] INSURANCE BILL [address] [place] [address] * SARS-COV-2 (COVID-19) AG (AMB) POCT (05/12/2021 10:24 AM ACCOUNT SERVICES ASSOCIATE) Pathologist [facility] SARS-CoV-2 Ag Negative Negative Lot # [id number] Expiration Date 02/15/22 Instrument Serial Number NA COVID Internal Control Acceptable Acceptable Microbiology SPECIMEN FROM NASAL FOSSAE / Unknown 05/12/2021 10:24 AM ACCOUNT SERVICES ASSOCIATE Brittanie Martins APRN-CNP - 05/12/2021 10:25 AM ACCOUNT SERVICES ASSOCIATE Negative results should be treated as presumptive and confirmation with a molecular assay, if necessary, for patient management, may be performed. Negative results do not rule out COVID-19 and should not be used as the sole basis for treatment or patient management decisions, including infection control decisions. Negative results should be considered in the context of a patient's recent exposures, history and the presence of clinical signs and symptoms consistent with COVID-19. SARS-CoV-2 antigen testing is authorized for use with nasal (Veritor, BinaxNOW, or Prachi) or nasopharyngeal (Prachi) swabs collected from individuals who are suspected of COVID-19 infection by their healthcare provider within the first five days of onset of symptoms. False-positive SARS-CoV-2 test results are more likely to occur when disease prevalence is low (less than 1%). False-negative SARS-CoV-2 test results are more likely to occur when disease prevalence is high (greater than 10%). This test has been authorized by the Food and Drug administration (FDA)under an Emergency Use Authorization (EUA). This test is only authorized for the duration of time the declaration that circumstances exist justifying the authorization of emergency use of in vitro diagnostic tests for detection of SARS-CoV-2 virus and/or diagnosis of COVID-19 infection under section 564(b)(1) of the Act, 21 U.S.C 360bbb-3 (b)(1), unless the authorization is terminated or revoked sooner. Fact Sheets for this EUA assay are available upon request. Brittanie Fregoso HIDE AND SKIN CLASSER-ROLLED GOLD PLATER LAB - POINT OF CARE ORDERABLES * GROSS + MICRO EXAM (12/07/2007 5:00 PM CDT) Result CASE NUMBER [id number] Comment: ORDERING PHYSICIAN RAYMUNDO RIOJAS SPECIMEN TYPE Placenta Date 12/08/2007 Physician Mansoor Riojas Gross Description The specimen is received in Formalin labeled with the patient's name, Yanet Calderon, and placenta. It consists of a mahmood discoid placenta with attached membranes and umbilical cord, which weighs 380 grams, and measures 12 x 12 x 3 cm. The umbilical cord attaches centrally, approximately 3 cm from the nearest margin. It is gandhi mares and measures 25 cm in length x 1 cm in maximal diameter. The cut surface reveals three vessels. The membranes attach marginally and are mares gandhi and semi-translucent. The surface is smooth gandhi and firm with tortuous vessels. The maternal surface is dull red to gandhi with intact cotyledons. The cut surface reveals no evidence of infarct or necrosis. Clarifier Operator Helper sections of the specimen are submitted as follows Cassette A membranes and umbilical cord. Cassettes B and C Clarifier Operator Helper sections of placenta. CN mata Microscopic Exam Microsections reveal chorioamniotic membranes without evidence of acute inflammation. Multiple foamy macrophages are identified with evidence of meconium. The three vessel umbilical cord is unremarkable, and there is no evidence of thrombosis. The chorionic villi are small, well vascularized with syncytial knots present and show no evidence of villitis or infarction. CN/na GM Diagnosis I. Placenta -- Mature placenta, 380 grams -- Three vessel umbilical cord with no pathologic changes -- Chorioamniotic membranes with no pathologic changes CN/na GM Auto Body Detailer na Pathologist Melani Chowdhury M.D. [place]. 12/11/2007 1240 <1> CPT code 99064 MISCELLANEOUS SAMPLES / Unknown 12/07/2007 5:00 PM CDT 12/08/2007 5:40 AM CDT Historical Provider LAB - PATHOLOGY/C YTOLOGY ORDERABLES Care Teams Musical Engineer Relationship Specialty Start Date End Date Derek Valderrama MD [address] [place] [address] PCP - General Internal Medicine 05/12/21
--- OUTSIDE RECORDS SUMMARY | 2024-06-08 14:53 | XMS_ITS | Clinical Summary ---
Author Organization [facility] Address [address] [facility] [address] Care Team Providers Care Scientific Research Associate Name Role Phone Derek Valderrama MD Primary Care Provider [phone] Source Comments [facility],non-owned Affiliates and Associated Physician Practices is amultiple site organization consisting of ambulatory clinics and hospital sitesin [place], [place], [place] and [place]. This disclosure is being madepursuant to the Care Everywhere program and may not contain all information available regarding this patient. Last updated 18.[facility] Allergies Active Allergy Reactions Criticality Noted Date Comments Morphine Itching 05/12/2021 Penicillins Itching 05/12/2021 Hydrocodone-Acetaminophen Itching 05/12/2021 Medications Be aware that medications may not [...] Comments Blood Pressure 110/78 05/12/2021 10:03 AM DIAPER FOLDER Pulse 79 05/12/2021 10:03 AM DIAPER FOLDER Temperature 37.1 C (98.8 F) 05/12/2021 10:03 AM DIAPER FOLDER Respiratory Rate 16 05/12/2021 10:03 AM DIAPER FOLDER Oxygen Saturation 98% 05/12/2021 10:03 AM DIAPER FOLDER Inhaled Oxygen Concentration - - Weight 102.1 kg (225 lb) 05/12/2021 10:03 AM DIAPER FOLDER Height 157.5 cm (5' 2 ) 05/12/2021 10:03 AM DIAPER FOLDER Body Mass Index 41.15 05/12/2021 10:03 AM DIAPER FOLDER Plan of Treatment Health Maintenance Due Date Last Done Comments PAP SMEAR 1988 HIV SCREENING 01/13/2003 HEPATITIS C SCREENING 01/09/2006 DTAP/TDAP/TD VACCINES (1 - Tdap) 01/13/2007 HEPATITIS B VACCINE (1 of 3 - 19+ 3-dose series) 01/13/2007 COVID-19 VACCINE (3 - 2023-2 5 season) 2023 12/18/2020, 11/27/2020 INFLUENZA VACCINE (#1) 2023 DEPRESSION SCREENING 04/25/2024 ZOSTER VACCINE (1 of 2) 01/13/2038 HIB VACCINE Aged Out No longer eligi ble based on patient's age to complete this topic HPV VACCINE Aged Out No longer eligi ble based on patient's age to complete this topic MENINGOCOCCAL (Group B) VACCINE Aged Out No longer eligible b ased on patient's age to complete this topic MENINGOCOCCAL VACCINE Aged Out No philip alena eligible based on patient's age to complete this topic PNEUMOCOCCAL VACCINE Aged Out No long er eligible based on patient's age to complete this topic Care Teams Scientific Research Associate Relationship Specialty Start Date End Date Derek Valderrama MD [address] [place] [address] PCP - General Internal Medicine 05/12/21
--- OUTSIDE RECORDS SUMMARY | 2024-06-08 14:53 | XMS_ITS | Encounter Summary ---
Author Organization [facility] Address [address] [place] [address] Phone Care Team Providers Care Music Agent Name Role Phone Tad Sanz MD Unavailable Adam Tan MD Unavailable Aft, Dalila Hickman MD PhD Unavailable [phone] Ma, Josselin Jeffrey MD PhD Unavailable [phone] Owen Dan LINE REPAIRER Unavailable [phone] Adelfo Shabazz MD Primary Care Pr ovider Hui Newton RN Unavailable Josselin De Oliveira MD PhD Primary Care Provide r Lisbet Kelley MD Unavailable Derek Valderrama MD Primary Care Provider [phone] Encounter Details Date Type Department Care Team (Latest Contact Info) Description 07/17/2022 Orders Only [facility] Scanning, Provider [...] on file Legal Sex Female 2:49 AM CHILD CARE CENTER ASSISTANT DIRECTOR Gender Identity Female 06/06/2022 9:23 PM CHILD CARE CENTER ASSISTANT DIRECTOR Sexual Orientation Not on file documented as of this encounter Plan of Treatment Upcoming Encounters Date Type Department Care Team (Latest Contact Info) Description 06/11/2031 Orders Only [facility] Scanning, Provider documented as of this encounter Procedures Procedure Name Priority Date/Time Associated Diagnosis Comments SCAN - PATHOLOGY 07/17/2022 documented in this encounter Results * SCAN - PATHOLOGY (07/17/2022) us Provider Scanning Final Result documented in this encounter Visit Diagnoses Not on filedocumented in this encounter Additional Health Concerns Infection Onset Date Last Indicated Resolved Time COVID: Suspected 10/09/2022 10/09/2022 10/09/2022 6:33 PM CDT C. difficile suspected 07/01/2023 07/01/202306/30 6:59 PM CHILD CARE CENTER ASSISTANT DIRECTOR COVID: Suspected 07/01/2023 07/01/2023 07/01/2023 11:45 AM CHILD CARE CENTER ASSISTANT DIRECTOR Norovirus suspected 07/01/2023 07/01/2023 07/01/19 7:24 PM CHILD CARE CENTER ASSISTANT DIRECTOR Norovirus 07/01/2023 07/01/2023 07/15/2023 3:05 AM CDT COVID: Suspected 12/29/2023 12/29/2023 12/29/2023 11:35 AM CDT documented as of this encounter Care Teams Music Agent Relationship Specialty Start Date End Date Adelfo Shabazz MD [address] [place] [address] PCP - General Radiation Oncology 06/14/22 10/10/22 Josselin De Oliveira MD PhD [address] [facility] [address] [place] [address] PCP - General Medical Oncology 10/11/22 01/10/23 Derek Valderrama MD [address] [place] [address] PCP - General Internal Medicine 01/11/23 Tad Sanz MD [address] [facility] [place] [address] Referring Physician Obstetrics and Gynecology 03/26/19 Adam Tan MD [address] [facility] # [address] LL [address] [place] [address] Radiation Oncologist Radiation Oncology 02/11/20 Aft, Dalila Hickman MD PhD [address] [place] [address] Surgeon Surgical Oncology 02/11/20 Josselin De Oliveira MD PhD [address] [facility] [address] [place] [address] Medical Oncologist/Resident Service Coordinator Medical Oncology 02/13/20 Owen Dan NP [address] [facility] [address] ADAMES [address] [place] [address] Nurse Practitioner Nurse Practitioner 12/09/20 Hui Newton, SKYE [address] [place] [address] Nurse Navigator 08/17/22 08/23/22 Lisbet Kelley MD [address] [place] [address] Anesthesiologist Pain Management 01/07/23 documented as of this encounter
--- OUTSIDE RECORDS SUMMARY | 2024-06-08 14:53 | XMS_ITS | Encounter Summary ---
Author Organization [facility] Healthcare Address [address] [place] [address] Care Team Providers Care Agricultural Produce Washer Name Role Phone Derek Valderrama MD Primary Care Provider [phone] Tad Sanz MD Unavailable [phone] Pauline Greene MD Unavailable + [phone] Adam Tan MD Unavailable Aft, Dalila Hickman MD PhD Unavailable [phone] Ma, Josselin Jeffrey MD PhD Unavailable Owen Dan FIREFIGHTER MARINE Unavailable [phone] Adelfo Shabazz MD Primary Care Pr ovider Hui Newton RN Unavailable Alvino, Josselin Jeffrey MD PhD Primary Care Provide r Lisbet Kelley MD Unavailable Derek Valderrama MD Primary Care Provider [phone] Encounter Details Date Type Department Care Team (Late st Contact Info) Description 01/28/2020 Telephone [facility] [address] [place] [address] Aminta Brower, RT Social History Tobacco Use Types Packs/Day Years Used Date Smoking Tobacco: Some Days Cigarettes Smokeless Tobacco: Never Alcohol Use Standard Drinks/Week Comments Yes 2 (1 standard drink = 0.6 oz pur e alcohol) Exercise Vital Sign Answer Date Recorde d [...] on file Legal Sex Female 2:49 AM TOLL TICKET CLERK Gender Identity Female 06/06/2022 9:23 PM TOLL TICKET CLERK Sexual Orientation Not on file documented as [...] C. difficile suspected 07/01/2023 07/01/202306/30 6:59 PM TOLL TICKET CLERK COVID: Suspected 07/01/2023 07/01/2023 07/01/2023 11:45 AM TOLL TICKET CLERK Norovirus suspected 07/01/2023 07/01/2023 07/01/19 7:24 PM TOLL TICKET CLERK Norovirus 07/01/2023 07/01/2023 07/15/2023 3:05 AM CDT COVID: Suspected 12/29/2023 12/29/2023 12/29/2023 11:35 AM CDT documented as of this encounter Care Teams Agricultural Produce Washer Relationship Specialty Start Date End Date Derek Valderrama MD PCP - General 01/10/14 06/13/22 Adelfo Shabazz MD [address] [place] [address] PCP - General Radiation Oncology 06/14/22 10/10/22 Josselin De Oliveira MD PhD [address] [place] [address] [address] [place] [address] PCP - General Medical Oncology 10/11/22 01/10/23 Derek Valderrama MD [address] [place] [address] PCP - General Internal Medicine 01/11/23 Tad Sanz MD [address] [place], [place] [id number] Referring Physician Obstetrics and Gynecology 03/26/19 Pauline Greene MD [address] [facility] [address] [place] [address] Medical Oncologist/Emission Technician Medical Oncology 06/28/19 02/12/20 Adam Tan MD [address] [facility] [address] [place] [address] Radiation Oncologist Radiation Oncology 02/11/20 Dalila Smith MD PhD [address] [facility] [place] [address] Surgeon Surgical Oncology 02/11/20 Josselin De Oliveira MD PhD [address] [facility] [address] [place] [address] Medical Oncologist/Emission Technician Medical Oncology 02/13/20 Owen Dan NP [address] [place] [address] Nurse Practitioner Nurse Practitioner 12/09/20 Hui Newton, SKYE [address] [place] [address] Nurse Navigator 08/17/22 08/23/22 Lisbet Kelley MD [address] [place] [address] Anesthesiologist Pain Management 01/07/23 documented as of this encounter
--- OUTSIDE RECORDS SUMMARY | 2024-06-08 14:53 | XMS_ITS | Encounter Summary ---
Author Organization [facility] Address [address] [place] [address] Phone Care Team Providers Care Machine Cementer Name Role Phone Derek Valderrama MD Primary Care Provider [phone] Tad Sanz MD Unavailable [phone] Adam Tan MD Unavailable Aft, Dalila Hickman MD PhD Unavailable [phone] Ma, Josselin Jeffrey MD PhD Unavailable Owen Dan COLORING MACHINE OPERATOR Unavailable [phone] Adelfo Shabazz MD Primary Care Pr ovider Hui Newton RN Unavailable Alvino, Josselin Jeffrey MD PhD Primary Care Provide r Lisbet Kelley MD Unavailable Derek Valderrama MD Primary Care Provider [phone] Encounter Details Date Type Department Care Team (Latest Contact Info) Description 10/03/2021 Orders Only [facility] Scanning, Provider [...] on file Legal Sex Female 2:49 AM DOG BATHER Gender Identity Female 06/06/2022 9:23 PM DOG BATHER Sexual Orientation Not on file documented as of this encounter Plan of Treatment Upcoming Encounters Date Type Department Care Team (Latest Contact Info) Description 06/11/2031 Orders Only [facility] Scanning, Provider documented as of this encounter Procedures Procedure Name Priority Date/Time Associated Diagnosis Comments SCAN - RADIOLOGY/IMAGING 10/03/2021 documented in this encounter Results * SCAN - RADIOLOGY/IMAGING (10/03/2021) Anatomical Region Laterality Modality Other Provider Scanning Final Result documented in this encounter Visit Diagnoses Not on filedocumented in this encounter Additional Health Concerns Infection Onset Date Last Indicated Resolved Time COVID: Suspected 10/29/2021 10/29/2021 10/29/2021 2:22 PM CDT COVID: Suspected 10/09/2022 10/09/2022 10/09/2022 6:33 PM CDT C. difficile suspected 07/01/2023 07/01/202306/30 6:59 PM DOG BATHER COVID: Suspected 07/01/2023 07/01/2023 07/01/2023 11:45 AM DOG BATHER Norovirus suspected 07/01/2023 07/01/2023 07/01/19 7:24 PM DOG BATHER Norovirus 07/01/2023 07/01/2023 07/15/2023 3:05 AM CDT COVID: Suspected 12/29/2023 12/29/2023 12/29/2023 11:35 AM CDT documented as of this encounter Care Teams Machine Cementer Relationship Specialty Start Date End Date Derek Valderrama MD PCP - General 01/10/14 06/13/22 Adelfo Shabazz MD [address] [place] [address] PCP - General Radiation Oncology 06/14/22 10/10/22 Josselin De Oliveira MD PhD [address] [facility] [address] [place] [address] PCP - General Medical Oncology 10/11/22 01/10/23 Derek Valderrama MD [address] [place] [address] PCP - General Internal Medicine 01/11/23 Tad Sanz MD [address] [place] [address] Referring Physician Obstetrics and Gynecology 03/26/19 Adam Tan MD [address] [facility] [address] [place] [address] Radiation Oncologist Radiation Oncology 02/11/20 Aft, Dalila Hickman MD PhD [address] [place] [address] Surgeon Surgical Oncology 02/11/20 Josselin De lOiveira MD PhD [address] [facility] [address] [place] [address] Medical Oncologist/Supervisor Seaming Medical Oncology 02/13/20 Owen Dan NP [address] [place] [address] [address] [place] [address] Nurse Practitioner Nurse Practitioner 12/09/20 Hui Newton, SKYE [address] [place] [address] Nurse Navigator 08/17/22 08/23/22 Lisbet Kelley MD [address] [place] [address] Anesthesiologist Pain Management 01/07/23 documented as of this encounter
--- OUTSIDE RECORDS SUMMARY | 2024-06-08 14:53 | XMS_ITS | Referral Summary ---
Author Organization [facility] [employer] Address [address] [place] [address] Care Team Providers Care Motor Vehicle Clerk Name Role Phone Derek Valderrama MD Primary Care Provider [phone] Source Comments [facility],non-owned Affiliates and Associated Physician Practices is amultiple site organization consisting of ambulatory clinics and hospital sitesin [place], [place], [place] and [place]. This disclosure is being madepursuant to the Care Everywhere program and may not contain all information available regarding this patient. Last updated 18.[facility] [employer] Allergies Active Allergy Reactions Criticality Noted Date [...] Comments Blood Pressure 110/78 05/12/2021 10:03 AM PRINCIPAL SECRETARY Pulse 79 05/12/2021 10:03 AM PRINCIPAL SECRETARY Temperature 37.1 C (98.8 F) 05/12/2021 10:03 AM PRINCIPAL SECRETARY Respiratory Rate 16 05/12/2021 10:03 AM PRINCIPAL SECRETARY Oxygen Saturation 98% 05/12/2021 10:03 AM PRINCIPAL SECRETARY Inhaled Oxygen Concentration - - Weight 102.1 kg (225 lb) 05/12/2021 10:03 AM PRINCIPAL SECRETARY Height 157.5 cm (5' 2 ) 05/12/2021 10:03 AM PRINCIPAL SECRETARY Body Mass Index 41.15 05/12/2021 10:03 AM PRINCIPAL SECRETARY Plan of Treatment Not on file Care Teams Motor Vehicle Clerk Relationship Specialty Start Date End Date Derek Valderrama MD [address] [place], [place] [id number] PCP - General Internal Medicine 05/12/21
--- OUTSIDE RECORDS SUMMARY | 2024-06-08 14:53 | XMS_ITS | Encounter Summary ---
Author Organization [facility] Address [address] [place] [address] Phone Care Team Providers Care Inspector Experimental Assembly Name Role Phone Tad Sanz MD Unavailable [phone] Adam Tan MD Unavailable Aft, Dalila Hickman MD PhD Unavailable [phone] Alvino, Josselin Jeffrey MD PhD Unavailable Owen Dan VIDEO TAPE EDITOR Unavailable [phone] Lisbet Kelley MD Unavailable Derek Valderrama MD Primary Care Provider Encounter Details Date Type Department Care Team (Late st Contact Info) Description 12/27/2023 Orders Only [facility] Oncology [address] [facility] 7th [place] [address] [place] [address] Josselin De Oliveira MD PhD [address] [facility] [address] [place] [address] Social History Tobacco Use Types Packs/Day Years Used Date Smoking Tobacco: Former Cigarettes Q uit: 03/05/2020 Smokeless Tobacco: Never Alcohol Use Standard Drinks/Week Comments Yes 2 (1 standard drink = 0.6 oz pur e alcohol) [facility] Utilities Answer Date Recorded In the past 12 months has th e electric, gas, oil, or water company threatened to shut off services in your [...] 12/30/2023 How often do you attend chur or caodaism services? Patient unable to answer 12/30/2023 Do you belong to any clubs o r organizations such as jehovah's witness groups, unions, fraternal or athletic groups, or [...] place to sleep or slept in a penitentiary (including now)? No 02/09/2023 Housing Stability Vital [...] any time in the past [address] [facility], were you homeless or living in a penitentiary (including now)? Patient unable to answer 12/30/2023 Personal Safety Answer Date Recorded Have you ever been in or are you currently in a harmful physical or emotional relationship or is someone making you feel afraid or unsafe? Denies 12/29/2023 Comments No Sex and Gender Information Value Date Recorded Sex Assigned at Not on file Legal Sex Female 2:49 AM [employer] Gender Identity Female 06/06/2022 9:23 PM [employer] Sexual Orientation Not on file documented as of this encounter Plan of Treatment Upcoming Encounters Date Type Department Care Team (Latest Contact Info) Description 06/11/2031 Orders Only [facility] Scanning, Provider documented as of this encounter Goals Goal Patient Goal Type Associated Problems Recent Progress Patient-Stated? Author CCM Fall Prevention Care Plan Chronic Care Management [...] lifestyle strategies and compensatory methods as needed [facility] Chronic Pain Care Plan Chronic Care Management Worsening( 9:25 AM CDT) Lien Benites RN Note: Problem: Chronic Pain Goals: 1. Minimize further functional decline 2. Maximize quality of life 3. Control pain Strategies: - Activity/exercise program recommendation - Conservative stepwise pain medicine strategy with multi-disciplinary approach - Recommend healthy lifestyle strategies and compensatory methods as needed documented as of this encounter Visit Diagnoses Not on filedocumented in this encounter Discontinued Medications Medication Sig Discontinue Reason Start Date End Da te diphenoxylate-atropine (LOMOTIL) 2.5-0.025 mg per tabletIndications:Chemo therapy-Induced Diarrhea,diarrhea Take 1 tablet by mouth 4 (four) times a day as needed for diarrhea Error 12/27/2023 12/27/2023 documented as of this encounter Additional Health Concerns Infection Onset Date Last Indicated Resolved Time COVID: Suspected 12/29/2023 12/29/2023 12/29/2023 11:35 AM CDT documented as of this encounter Care Teams Inspector Experimental Assembly Relationship Specialty Start Date End Date Derek Valderrama MD [address] [place] [address] [address] [place] [address] PCP - General Internal Medicine 01/11/23 Tad Sanz MD [address] [place] [address] Referring Physician Obstetrics and Gynecology 03/26/19 Adam Tan MD [address] [facility] [address] [place] [address] Radiation Oncologist Radiation Oncology 02/11/20 AftDalila MD PhD [address] [place] [address] Surgeon Surgical Oncology 02/11/20 Josselin De Oliveira MD PhD [address] [facility] [address] [place] [address] Medical Oncologist/Parts Counter Representative Medical Oncology 02/13/20 Owen Dan NP [address] [place] [address] [place] [address] Nurse Practitioner Nurse Practitioner 12/09/20 Lisbet Kelley MD [address] [place] [address] [place] [address] Anesthesiologist Pain Management 01/07/23 documented as of this encounter
--- OUTSIDE RECORDS SUMMARY | 2024-06-08 14:53 | XMS_ITS | Encounter Summary ---
Author Organization [facility] Address [address] [place] [address] Care Team Providers Care Senior Service Aide Name Role Phone Bautista Valderrama MD Primary Care Provider [phone] Reason for Visit * Reason Comments Musculoskeletal Pain Encounter Details Date Type Department Care Team (Late st Contact Info) Description 06/07/2024 7:51 PM JINGLE WRITER - 06/07/2024 11:29 PM JINGLE WRITER Emergency [facility] [place] [place], [place] [id number] Jeremy Esposito DO [address] [place] [id number] Musculoskeletal Pain Discharge Disposition: Home or Self Care (Routine Discharge) Social History Tobacco Use Types Packs/Day Years Used Date Smoking Tobacco: Never Smokeless Tobacco: Never Alcohol Use Standard Drinks/Week Comments Not Currently 0 (1 standard drink = 0.6 oz pur e alcohol) Comments No Sex and Gender Information Value Date Recorded Sex Assigned at Female 05/09/2024 9:43 AM JINGLE WRITER Legal Sex Female 5:53 PM JINGLE WRITER Gender Identity Not on file Sexual Orientation Not on file documented as of this encounter Last Filed Vital Signs Vital Sign Reading Time Taken Comments Blood Pressure 141/103 06/07/2024 11:25 PM JINGLE WRITER Pulse 112 06/07/2024 7:58 PM JINGLE WRITER Temperature 36.1 C (96.9 F) 06/07/2024 7:58 PM JINGLE WRITER Respiratory Rate 16 06/07/2024 7:58 PM JINGLE WRITER Oxygen Saturation 95% 06/07/2024 11:25 PM JINGLE WRITER Inhaled Oxygen Concentration - - Weight 83.5 kg (184 lb) 06/07/2024 7:58 PM JINGLE WRITER Height 157.5 cm (5' 2 ) 06/07/2024 7:58 PM JINGLE WRITER Body Mass Index 33.65 06/07/2024 7:58 PM JINGLE WRITER documented in this encounter Discharge Instructions * Attachments The following attachments cannot be sent through Care Everywhere. * Cancer Pain Syndromes Discharge Instructions (Kazakh) documented in this encounter Medications at Time of Discharge apixaban (ELIQUIS) 5 MG tablet Take 1 tablet (5 mg total) by mouth 2 (two) times daily. 06/13/2023 capecitabine (XELODA) 500 MG tablet Take 3 tablets by mouth 2 (two) times daily. 04/27/2024 Capivasertib 200 MG Tab Take 400 mg by mouth 2 (two) times daily. 03/12/2024 HYDROcodone-acet aminophen (NORCO) 5-325 MG tabletIndication s:Acute Pain < 3 Day Supply Take 1 tablet by mouth every 6 (six) hours as needed. Indications: Acute Pain < 3 Day Supply 10 tablet 05/10/2024 naloxone (NARCAN) 4 MG/0.1ML nasal spray 1 spray by Nasal route as needed for Opioid reversal. may repeat every 2 to 3 minutes in alternating nostrils until medical assistance becomes available 1 each 05/10/2024 ondansetron (ZOFRAN) 8 MG tablet Take 1 tablet (8 mg total) by mouth. 09/05/2023 oxyCODONE-acetam inophen (PERCOCET) 7.5-325 MG tablet Take 1 tablet by mouth every 4 (four) hours as needed. 04/13/2024 pantoprazole EC (PROTONIX) 40 MG tablet Take 1 tablet (40 mg total) by mouth daily. 10/30/2023 traZODone (DESYREL) 50 MG tablet Take 1 tablet (50 mg total) by mouth nightly at bedtime. documented as of this encounter ED Notes * Waldemar Rios RN - 06/07/2024 7:57 PM CST Pt here with worsening pain to hips, legs, knees, jaw since Tuesday. Hx metastatic breast ca. LE WRITER documented in this encounter Plan of Treatment Not on file documented as of this encounter Procedures Procedure Name Priority Date/Time Associated Diagnosis Comments COMPREHENSIVE METABOLIC PANEL STAT 06/07/2024 8:26 PM JINGLE WRITER CBC W/DIFF AUTOMATED STAT 06/07/2024 8:26 PM JINGLE WRITER documented in this encounter Results * (ABNORMAL) COMPREHENSIVE METABOLIC PANEL (06/07/2024 8:26 PM JINGLE WRITER) SODIUM S/P/B 142 136 - 145 MMOL/L 06/07/2024 8:48 PM JINGLE WRITER [facility] POTASSIUM S/P/B 4.2 3.5 - 5.1 MMOL/L 06/07/2024 8:48 PM JINGLE WRITER [facility] CHLORIDE S/P/B 103 98 - 107 MMOL/L 06/07/2024 8:48 PM JINGLE WRITER [facility] CO2 26.9 21.0 - 32.0 MMOL/L 06/07/2024 8:48 PM [facility] GLUCOSE 99 70 - 99 MG/DL 06/07/2024 8:48 PM [facility] Comment: FASTING GLUCOSE 100 TO 125 MG/DL IS CONSISTENT WITH IMPAIRED FASTING GLUCOSE. FASTING GLUCOSE >125 MG/DL IS CONSISTENT WITH DIABETES. RANDOM GLUCOSE >200 MG/DL WITH HYPERGLYCEMIC SYMPTOMS IS CONSISTENT WITH DIABETES. PER ADA GUIDELINES BUN 20 6 - 24 MG/DL 06/07/2024 8:48 PM JINGLE WRITER [facility] CREATININE S/P/B 0.64 0.55 - 1.02 MG/DL 06/07/2024 8:48 PM [facility] CALCIUM S/P/B 9.0 8.4 - 10.5 MG/DL 06/07/2024 8:48 PM [facility] BILIRUBIN TOTAL S/P/B 0.2 0.2 - 1.0 MG/DL 06/07/2024 8:48 PM [facility] Comment: THIS ASSAY IS NOT RECOMMENDED FOR PATIENTS UNDERGOING TREATMENT WITH ELTROMBOPAG DUE TO THE POTENTIAL FOR FALSELY ELEVATED RESULTS. ALKALINE PHOSPHATASE S/P/B 369(H) 37 - 98 U/L 06/07/2024 8:48 PM JINGLE WRITER [facility] AST 141(H) 15 - 37 U/L 06/07/2024 8:48 PM JINGLE WRITER [facility] ALT 79(H) 14 - 59 U/L 06/07/2024 8:48 PM JINGLE WRITER [facility] TOTAL PROTEIN S/P/B 7.4 6.4 - 8.2 G/DL 06/07/2024 8:48 PM JINGLE WRITER [facility] ALBUMIN S/P/B 3.1(L) 3.4 - 5.0 G/DL 06/07/2024 8:48 PM JINGLE WRITER [facility] ANION GAP 12.1 5.0 - 15.0 MMOL/L 06/07/2024 8:48 PM JINGLE WRITER [facility] OSMOLALITY (CALC) 297 MOSM/KG 025 8:48 PM JINGLE WRITER [facility] Comment:REFERENCE RANGE NOT ESTABLISHED GFR ESTIMATE >90 >89 ML/MIN/1. 73 M2 06/07/2024 8:48 PM JINGLE WRITER [facility] GFR NOTES GFR REFERENCE S: 06/07/2024 8:48 PM JINGLE WRITER [facility] Comment: THE ESTIMATED GFR IS CALCULATED [...] FAILURE: <15 ml/min/1.73 m2 06/07/2024 8:26 PM JINGLE WRITER us Jeremy Esposito DO LABORATORY Final Result [facility] [address] [place] [address], * (ABNORMAL) CBC W/DIFF AUTOMATED (06/07/2024 8:26 PM JINGLE WRITER) WBC 4.40 4.00 - 10.80 x10'3/uL 06/07/2024 8:31 PM [facility] RBC 3.13(L) 4.10 - 5.40 x10'6/uL 06/07/2024 8:31 PM [facility] HGB 8.8(L) 12.0 - 16.0 G/DL 06/07/2024 8:31 PM [facility] HCT 27.2(L) 36.0 - 47.0 % 06/07/2024 8:31 PM [facility] MCV 86.9 78.0 - 100.0 FL 06/07/2024 8:31 PM [facility] MCH 28.1 27.0 - 31.0 PG 06/07/2024 8:31 PM [facility] MCHC 32.4(L) 33.0 - 36.0 G/DL 06/07/2024 8:31 PM [facility] RDW 14.4 11.5 - 14.5 % 06/07/2024 8:31 PM [facility] PLT 191 150 - 350 x10'3/uL 06/07/2024 8:31 PM [facility] MPV 9.3 7.4 - 10.4 FL 06/07/2024 8:31 PM [facility] CBC COMMENT NORMAL REFERENCE RANGE NOT ESTABLISHED FOR THE PROPORTIONAL LEUKOCYTE DIFFERENTIAL. 06/07/2024 8:31 PM [facility] NEUTROPHILS % 49.3 % 06/07/2024 8:31 PM [facility] LYMPHOCYTES % 32.3 % 06/07/2024 8:31 PM [facility] MONOCYTES % 14.1 % 06/07/2024 8:31 PM [facility] EOSINOPHILS % 2.5 % 06/07/2024 8:31 PM [facility] BASOPHILS % 0.9 % 06/07/2024 8:31 PM [facility] IMMATURE GRANS % 0.9 % 06/07/19 8:31 PM JINGLE WRITER [facility] NRBC % 0.0 % 06/07/2024 8:31 PM JINGLE WRITER [facility] ABS. NEUTROPHILS 2.17 1.60 - 8.30 x10'3/uL 06/07/2024 8:31 PM JINGLE WRITER [facility] ABS. LYMPHOCYTES 1.42 0.80 - 4.70 x10'3/uL 06/07/2024 8:31 PM JINGLE WRITER [facility] ABS. MONOCYTES 0.62 0.00 - 1.50 x10'3/uL 06/07/2024 8:31 PM JINGLE WRITER [facility] ABS. EOSINOPHILS 0.11 0.00 - 0.40 x10'3/uL 06/07/2024 8:31 PM JINGLE WRITER [facility] ABS. BASOPHILS 0.04 0.00 - 0.20 x10'3/uL 06/07/2024 8:31 PM JINGLE WRITER [facility] ABS. IMMATURE GRANULOCYTES 0.04(H) 0.00 - 0.03 x10'3/uL 06/07/2024 8:31 PM JINGLE WRITER [facility] ABS. NUCLEATED RBC'S 0.00 0.00 - 0.01 x10'3/uL 06/07/2024 8:31 PM [facility] 06/07/2024 8:26 PM JINGLE WRITER Jeremy Esposito DO LABORATORY Final Result [facility] [address] [place] [address], documented in this encounter Visit Diagnoses Diagnosis Cancer associated pain- Primary Neoplasm related pain (acute) (chronic) Anemia Anemia, unspecified documented in this encounter Administered Medications Inactive Administered Medications - up to 3 most recent administrations Medication Order MAR Action Action Date Dose Rate Site heparin lock flush 10 unit/mL injection 3 mL 3 mL, Intracatheter, As needed, Line care, Starting on Tue06/07/24 at 2254, Until Tue06/08/24 at 0144 Given 06/07/2024 11:16 PM JINGLE WRITER 3 mLs HYDROmorphone (DILAUDID) injection 1 mg 1 mg, Intravenous, Once, 1 dose, On Ana 06/07/24 at 2014, Administer slowly over at least 2-3 minutes. Given 06/07/2024 8:32 PM JINGLE WRITER 1 mg HYDROmorphone (DILAUDID) injection 1 mg 1 mg, Intravenous, Once, 1 dose, On Ana 06/07/24 at 2114, Administer slowly over at least 2-3 minutes. Given 06/07/2024 9:12 PM JINGLE WRITER 1 mg HYDROmorphone (DILAUDID) injection 1 mg 1 mg, Intravenous, Once, 1 dose, On Ana 06/07/24 at 0, Administer slowly over at least 2-3 minutes. Given 06/07/2024 10:41 PM JINGLE WRITER 1 mg sodium chloride 0.9% bolus infusion 1,000 mL 1,000 mL, Intravenous, Administer over 30 Minutes, Once, 1 dose, On Ana 06/07/24 at 2014 New Bag 06/07/2024 8:32 PM JINGLE WRITER 1,000 mLs 2000 mL/hr documented in this encounter Active and Recently Administered Medications Times are shown in JINGLE WRITER. Scheduled Medication Order 06/05/2024 06/06/2024 06/07/2024 HYDROmorphone (DILAUDID) injection 1 mg (COMPLETED) 1 mg, Intravenous, Once, 1 dose, On Ana 06/07/24 at 2014, Administer slowly over at least 2-3 minutes. 2031 (Given - Provid er: Magaly Turner RN) HYDROmorphone (DILAUDID) injection 1 mg (COMPLETED) 1 mg, Intravenous, Once, 1 dose, On Ana 06/07/24 at 2114, Administer slowly over at least 2-3 minutes. 2111 (Given - Provid er: Nigel Wheat RN) HYDROmorphone (DILAUDID) injection 1 mg (COMPLETED) 1 mg, Intravenous, Once, 1 dose, On Ana 06/07/24 at 2230, Administer slowly over at least 2-3 minutes. 2240 (Given - Provid er: Nigel Wheat RN) sodium chloride 0.9% bolus infusion 1,000 mL (COMPLETED) 1,000 mL, Intravenous, Administer over 30 Minutes, Once, 1 dose, On Ana 06/07/24 at 2014 2031 (New Bag - Prov ider: Magaly Turner RN)2143 (Infusion Stop Time - Provider: Nigel Wheat RN) PRN Medication Order 06/05/2024 06/06/2024 06/07/2024 heparin lock flush 10 unit/mL injection 3 mL 3 mL, Intracatheter, As needed, Line care, Starting on Ana 06/07/24 at 2254, Until Tue06/08/24 at 0144 2316 (Given - Provid er: Nigel Wheat RN) documented in this encounter Care Teams Senior Service Aide Relationship Specialty Start Date End Date Bautista Valderrama MD [address] [place] [address] PCP - General INTERNAL MEDICINE 05/12/22 documented as of this encounter
--- OUTSIDE RECORDS SUMMARY | 2024-06-08 14:53 | XMS_ITS | Encounter Summary ---
Author Organization [facility] Address [address] [place] [address] Phone Care Team Providers Care Live In Caregiver Name Role Phone Derek Valderrama MD Primary Care Provider [phone] Tad Sanz MD Unavailable [phone] Adam Tan MD Unavailable Aft, Dalila Hickman MD PhD Unavailable [phone] Ma, Josselin Jeffrey MD PhD Unavailable Owen Dan PAPER MACHINE TENDER Unavailable [phone] Adelfo Shabazz MD Primary Care Pr ovider Hui Newton RN Unavailable Alvino, Josselin Jeffrey MD PhD Primary Care Provide r Lisbet Kelley MD Unavailable Derek Valderrama MD Primary Care Provider [phone] Encounter Details Date Type Department Care Team (Latest Contact Info) Description 09/20/2021 Orders Only [facility] Scanning, Provider [...] on file Legal Sex Female 2:49 AM FRONT LOAD TRASH TRUCK DRIVER Gender Identity Female 06/06/2022 9:23 PM FRONT LOAD TRASH TRUCK DRIVER Sexual Orientation Not on file documented as of this encounter Plan of Treatment Upcoming Encounters Date Type Department Care Team (Latest Contact Info) Description 06/11/2031 Orders Only [facility] Scanning, Provider documented as of this encounter Procedures Procedure Name Priority Date/Time Associated Diagnosis Comments SCAN - RADIOLOGY/IMAGING 09/20/2021 documented in this encounter Results * SCAN - RADIOLOGY/IMAGING (09/20/2021) Anatomical Region Laterality Modality Other Provider Scanning Final Result documented in this encounter Visit Diagnoses Not on filedocumented in this encounter Additional Health Concerns Infection Onset Date Last Indicated Resolved Time COVID: Suspected 10/29/2021 10/29/2021 10/29/2021 2:22 PM CDT COVID: Suspected 10/09/2022 10/09/2022 10/09/2022 6:33 PM CDT C. difficile suspected 07/01/2023 07/01/202306/30 6:59 PM FRONT LOAD TRASH TRUCK DRIVER COVID: Suspected 07/01/2023 07/01/2023 07/01/2023 11:45 AM FRONT LOAD TRASH TRUCK DRIVER Norovirus suspected 07/01/2023 07/01/2023 07/01/19 7:24 PM FRONT LOAD TRASH TRUCK DRIVER Norovirus 07/01/2023 07/01/2023 07/15/2023 3:05 AM CDT COVID: Suspected 12/29/2023 12/29/2023 12/29/2023 11:35 AM CDT documented as of this encounter Care Teams Live In Caregiver Relationship Specialty Start Date End Date Derek Valderrama MD PCP - General 01/10/14 06/13/22 Adelfo Shabazz MD [address] [place] [address] PCP - General Radiation Oncology 06/14/22 10/10/22 Josselin De Oliveira MD PhD [address] [facility] [address] [place] [address] PCP - General Medical Oncology 10/11/22 01/10/23 Derek Valderrama MD [address] [place] [address] PCP - General Internal Medicine 01/11/23 Tad Sanz MD [address] [place] [address] Referring Physician Obstetrics and Gynecology 03/26/19 Adam Tan MD [address] [facility] [address] [place] [address] Radiation Oncologist Radiation Oncology 02/11/20 Aft, Dalila Hickman MD PhD [address] [place] [address] Surgeon Surgical Oncology 02/11/20 Josselin De Oliveira MD PhD [address] [facility] [address] [place] [address] Medical Oncologist/Chief Design Drafter Medical Oncology 02/13/20 Owen Dan NP [address] [place] [address] DR ADAMES [address] [place] [address] Nurse Practitioner Nurse Practitioner 12/09/20 Hui Newton, SKYE [address] [place] [address] Nurse Navigator 08/17/22 08/23/22 Lisbet Kelley MD [address] [place] [address] Anesthesiologist Pain Management 01/07/23 documented as of this encounter
--- OUTSIDE RECORDS SUMMARY | 2024-06-08 15:43 | XMS_ITS | Encounter Summary ---
Author Organization [facility] Address [address] [place] [address] Phone Care Team Providers Care Hatchery Man Name Role Phone Derek Valderrama MD Primary Care Provider [phone] Tad Sanz MD Unavailable [phone] Adam Tan MD Unavailable Aft, Dalila Hickman MD PhD Unavailable [phone] Ma, Josselin Jeffrey MD PhD Unavailable Owen Dan ADVERTISING SALES ASSISTANT Unavailable [phone] Adelfo Shabazz MD Primary Care Pr ovider Hui Newton RN Unavailable Alvino, Josselin Jeffrey MD PhD Primary Care Provide r Lisbet Kelley MD Unavailable Derek Valderrama MD Primary Care Provider [phone] Encounter Details Date Type Department Care Team [...] on file Legal Sex Female 2:49 AM AUTOMOBILE PARKER Gender Identity Female 06/06/2022 9:23 PM AUTOMOBILE PARKER Sexual Orientation Not on file documented as [...] C. difficile suspected 07/01/2023 07/01/202306/30 6:59 PM AUTOMOBILE PARKER COVID: Suspected 07/01/2023 07/01/2023 07/01/2023 11:45 AM AUTOMOBILE PARKER Norovirus suspected 07/01/2023 07/01/2023 07/01/19 7:24 PM AUTOMOBILE PARKER Norovirus 07/01/2023 07/01/2023 07/15/2023 3:05 AM CDT COVID: Suspected 12/29/2023 12/29/2023 12/29/2023 11:35 AM CDT documented as of this encounter Care Teams Hatchery Man Relationship Specialty Start Date End Date Derek Valderrama MD PCP - General 01/10/14 06/13/22 Adelfo Shbaazz MD [address] [place] [address] PCP - General Radiation Oncology 06/14/22 10/10/22 Josselin De Oliveira MD PhD [address] [facility] [address] [place] [address] PCP - General Medical Oncology 10/11/22 01/10/23 Derek Valderrama MD [address] [place] [address] PCP - General Internal Medicine 01/11/23 Tad Sanz MD [address] [place] [address] Referring Physician Obstetrics and Gynecology 03/26/19 Adam Tan MD [address] [facility] [address] [place] [address] Radiation Oncologist Radiation Oncology 02/11/20 Aft, Dalila Hickman MD PhD [address] [place] [address] Surgeon Surgical Oncology 02/11/20 Josselin De Oliveira MD PhD [address] [facility] [address] [place] [address] Medical Oncologist/Computer Application Developer Medical Oncology 02/13/20 Owen Dan NP [address] [place] [address] [address] [place] [address] Nurse Practitioner Nurse Practitioner 12/09/20 Hui Newton, SKYE [address] [place] [address] Nurse Navigator 08/17/22 08/23/22 Lisbet Kelley MD [address] [place] [address] Anesthesiologist Pain Management 01/07/23 documented as of this encounter
--- OUTSIDE RECORDS SUMMARY | 2024-06-08 15:43 | XMS_ITS | Clinical Summary ---
Author Organization [facility] Address [address] [facility] [place] [address] Care Team Providers Care Racking Machine Operator Name Role Phone Derek Valderrama MD Primary Care Provider [phone] Source Comments [facility],non-owned Affiliates and Associated Physician Practices is amultiple site organization consisting of ambulatory clinics and hospital sitesin [place], [place], [place] and [place]. This disclosure is being madepursuant to the Care Everywhere program and may not contain all information available regarding this patient. Last updated 18.[facility] Allergies Active Allergy Reactions Criticality Noted Date [...] Comments Blood Pressure 110/78 05/12/2021 10:03 AM EXTRACTOR TENDER RAW STOCK Pulse 79 05/12/2021 10:03 AM EXTRACTOR TENDER RAW STOCK Temperature 37.1 C (98.8 F) 05/12/2021 10:03 AM EXTRACTOR TENDER RAW STOCK Respiratory Rate 16 05/12/2021 10:03 AM EXTRACTOR TENDER RAW STOCK Oxygen Saturation 98% 05/12/2021 10:03 AM EXTRACTOR TENDER RAW STOCK Inhaled Oxygen Concentration - - Weight 102.1 kg (225 lb) 05/12/2021 10:03 AM EXTRACTOR TENDER RAW STOCK Height 157.5 cm (5' 2 ) 05/12/2021 10:03 AM EXTRACTOR TENDER RAW STOCK Body Mass Index 41.15 05/12/2021 10:03 AM EXTRACTOR TENDER RAW STOCK Plan of Treatment Health Maintenance Due Date [...] age to complete this topic Care Teams Racking Machine Operator Relationship Specialty Start Date End Date Derek Valderrama MD [address] [place] [address] PCP - General Internal Medicine 05/12/21
--- OUTSIDE RECORDS SUMMARY | 2024-06-08 15:43 | XMS_ITS ---
Author Organization [facility] Address [address] [place] [address] Care Team Providers Care Kickboxing Instructor Name Role Phone Tad Sanz MD Unavailable [phone] Adam Tan MD Unavailable Aft, Dalila Hickman MD PhD Unavailable [phone] Ma, Josselin Jeffrey MD PhD Unavailable SyOwen patterson PERSONAL BANKING ADVISOR Unavailable [phone] Lisbet Kelley MD Unavailable Derek Valderrama MD Primary Care Provider [phone] Active Problems Problem Noted Date Diagnosed Date [...] (02/09/2023 2:43 AM CDT): 02/05: blood cultures ([facility]) come back positive, one of which was drawn from her port. (Call back [phone]. ) Anarobic culture grew gram + cocci [...] vomiting includes medication side effects (ribociclib/memantine) vs PHOTOENGRAVING PROOFER APPRENTICE malignancy (post radiation related). No obstructive symptoms [...] vomiting includes medication side effects (ribociclib/memantine) vs PHOTOENGRAVING PROOFER APPRENTICE malignancy (post radiation related). No obstructive symptoms [...] vomiting includes medication side effects (ribociclib/memantine) vs PHOTOENGRAVING PROOFER APPRENTICE malignancy (post radiation related). No obstructive symptoms [...] vomiting includes medication side effects (ribociclib/memantine) vs PHOTOENGRAVING PROOFER APPRENTICE malignancy (post radiation related). No obstructive symptoms [...] out upon extensive comparison of imaging from [place] and the one done at [facility] as IP. - Pt was on Eliquis [...] (10/16/2020): Added automatically from request for surgery [id number] History of vitamin D deficiency 10/01/2020 Excess skin of upper extremity 09/07/2020 Overview (09/07/2020): Added automatically from request for surgery [id number] Acquired deformity of upper extremity 09/07/2020 Overview (09/07/2020): Added automatically from request for surgery [id number] Encounter for follow-up surveillance of breast c ancer 08/04/2020 Unwanted fertility 10/08/2019 Overview (10/08/2019): Added automatically from request for surgery [id number] Absence of breast, acquired, bilateral 0 Overview (09/27/2019): Added automatically from request for surgery [id number] Follow-up examination, following other surgery 0 09/06/2019 Malignant neoplasm of upper- inner quadrant of left breast in female, estrogen receptor positive (CMS/HCC) 04/30/2019 Cancer Staging:Pathologic:Stage IB(pT2, pN0(sn), cM0, G3, ER+, MO+, HER2-, Oncotype DX score: 20) - Signed [...] (12/22/2021 4:53 PM CDT): -H x of ER/MO+, HER2 negative breast cancer that recurred after [...] (12/21/2021 11:24 PM CDT): -H x of ER/MO+, HER2 negative breast cancer that recurred after [...] MD PhD 2 of 8 cycles completed [id number] - [facility] - Breast - OP-1250 - 003 - Dose Escalation - Treatment Group 1 - OP-1250 / Ribociclib 3 08/10/2022 [facility] OP-1250 (2022-03-077/O P-1250-003)[facility]V [facility] ribociclib (2022-03-7/O P-[id number]) Provider Discretion Josselin De [...]
--- OUTSIDE RECORDS SUMMARY | 2024-06-08 15:43 | XMS_ITS | Encounter Summary ---
Author Organization [facility] Address [address] [place] [address] Phone Care Team Providers Care Laborer Beam House Name Role Phone Derek Valderrama MD Primary Care Provider [phone] Tad Sanz MD Unavailable [phone] Adam Tan MD Unavailable Aft, Dalila Hickman MD PhD Unavailable [phone] Ma, Josselin Jeffrey MD PhD Unavailable [phone] Owen Dan SUPERVISOR LOGGING Unavailable [phone] Adelfo Shabazz MD Primary Care Pr ovider Hui Newton RN Unavailable Alvino, Josselin Jeffrey MD PhD Primary Care Provide r Lisbet Kelley MD Unavailable Derek Valderrama MD Primary Care Provider [phone] Encounter Details Date Type Department Care Team [...] on file Legal Sex Female 2:49 AM KILN TRANSFER OPERATOR Gender Identity Female 06/06/2022 9:23 PM KILN TRANSFER OPERATOR Sexual Orientation Not on file documented as [...] C. difficile suspected 07/01/2023 07/01/202306/30 6:59 PM KILN TRANSFER OPERATOR COVID: Suspected 07/01/2023 07/01/2023 07/01/2023 11:45 AM KILN TRANSFER OPERATOR Norovirus suspected 07/01/2023 07/01/2023 07/01/19 7:24 PM KILN TRANSFER OPERATOR Norovirus 07/01/2023 07/01/2023 07/15/2023 3:05 AM CDT COVID: Suspected 12/29/2023 12/29/2023 12/29/2023 11:35 AM CDT documented as of this encounter Care Teams Laborer Beam House Relationship Specialty Start Date End Date Derek Valderrama MD PCP - General 01/10/14 06/13/22 Adelfo Shabazz MD [address] [place] [address] PCP - General Radiation Oncology 06/14/22 10/10/22 Josselin De Oliveira MD PhD [address] [facility] [address] [place] [address] PCP - General Medical Oncology 10/11/22 01/10/23 Derek Valderrama MD [address] [place] [address] PCP - General Internal Medicine 01/11/23 Tad Sanz MD [address] [place] [address] Referring Physician Obstetrics and Gynecology 03/26/19 Adam Tan MD [address] [facility] [address] [place] [address] Radiation Oncologist Radiation Oncology 02/11/20 Aft, Dalila Hickman MD PhD [address] [place] [address] Surgeon Surgical Oncology 02/11/20 Josselin De Oliveira MD PhD [address] [facility] [address] [place] [address] Medical Oncologist/Vallez Filter Operator Medical Oncology 02/13/20 Owen Dan NP [address] [place] [address] DR ADAMES [address] [place] [address] Nurse Practitioner Nurse Practitioner 12/09/20 Hui Newton, SKYE [address] [place] [address] Nurse Navigator 08/17/22 08/23/22 Lisbet Kelley MD [address] [place] [address] Anesthesiologist Pain Management 01/07/23 documented as of this encounter
--- OUTSIDE RECORDS SUMMARY | 2024-06-08 15:43 | XMS_ITS | Encounter Summary ---
Author Organization [facility] Address [address] [place] [address] Care Team Providers Care Tubing Machine Operator Name Role Phone Bautista Valderrama MD Primary Care Provider [phone] Encounter Details Date Type Department Care Team (Latest Contact Info) Description 06/07/2024 Travel Social History Tobacco Use Types Packs/Day Years Used Date Smoking Tobacco: Never Smokeless Tobacco: Never Alcohol Use Standard Drinks/Week Comments Not Currently 0 (1 standard drink = 0.6 oz pur e alcohol) Comments No Sex and Gender Information Value Date Recorded Sex Assigned at Female 05/09/2024 9:43 AM PRINT MANAGER Legal Sex Female 5:53 PM PRINT MANAGER Gender Identity Not on file Sexual Orientation Not on file documented as of this encounter Plan of Treatment Not on file documented as of this encounter Visit Diagnoses Not on filedocumented in this encounter Care Teams Tubing Machine Operator Relationship Specialty Start Date End Date Bautista Valderrama MD [address] [place] [address] PCP - General INTERNAL MEDICINE 05/12/22 documented as of this encounter
--- OUTSIDE RECORDS SUMMARY | 2024-06-08 15:43 | XMS_ITS | Referral Summary ---
Author Organization [facility] Address [address] [place] [address] Care Team Providers Care Propeller Driven Airplane Mechanic Name Role Phone Tad Sanz MD Unavailable [phone] Adam Tan MD Unavailable Aft, Dalila Hickman MD PhD Unavailable [phone] Ma, Josselin Jeffrey MD PhD Unavailable [phone] Owen Dan HEAVY TRUCK TECHNICIAN Unavailable [phone] Lisbet Kelley MD Unavailable Derek Valderrama MD Primary Care Provider [phone] Encounters Date Type Department Care Team Description 05/25/2024 Telephone [facility] [address] [place] [address] Jazmine Bauer RN Appointment 03/14/2024 Documentation [facility] Oncology [address] [facility] [address] [place] [address] Angelika Morrow, RN from Last [...] (02/09/2023 2:43 AM CDT): 02/05: blood cultures ([facility]) come back positive, one of which was drawn from her port. (Call back [phone]. ) Anarobic culture grew gram + cocci [...] vomiting includes medication side effects (ribociclib/memantine) vs ANIMAL HUSBANDMAN malignancy (post radiation related). No obstructive symptoms [...] vomiting includes medication side effects (ribociclib/memantine) vs ANIMAL HUSBANDMAN malignancy (post radiation related). No obstructive symptoms [...] vomiting includes medication side effects (ribociclib/memantine) vs ANIMAL HUSBANDMAN malignancy (post radiation related). No obstructive symptoms [...] vomiting includes medication side effects (ribociclib/memantine) vs ANIMAL HUSBANDMAN malignancy (post radiation related). No obstructive symptoms [...] out upon extensive comparison of imaging from [place] and the one done at [facility] as IP. - Pt was [...] (10/16/2020): Added automatically from request for surgery [id number] History of vitamin D deficiency 10/01/2020 Excess skin of upper extremity 09/07/2020 Overview (09/07/2020): Added automatically from request for surgery [id number] Acquired deformity of upper extremity 09/07/2020 Overview (09/07/2020): Added automatically from request for surgery [id number] Encounter for follow-up surveillance of breast c ancer 08/04/2020 Unwanted fertility 10/08/2019 Overview (10/08/2019): Added automatically from request for surgery [id number] Absence of breast, acquired, bilateral 0 Overview (09/27/2019): Added automatically from request for surgery [id number] Follow-up examination, following other surgery 0 09/06/2019 Malignant neoplasm of upper- inner quadrant of left breast in female, estrogen receptor positive (CMS/HCC) 04/30/2019 Cancer Staging:Pathologic:Stage IB(pT2, pN0(sn), cM0, G3, ER+, HI+, HER2-, Oncotype DX score: 20) - Signed [...] (12/22/2021 4:53 PM CDT): -H x of ER/HI+, HER2 negative breast cancer that recurred after [...] (12/21/2021 11:24 PM CDT): -H x of ER/HI+, HER2 negative breast cancer that recurred after [...] drink = 0.6 oz pur e alcohol) [facility] Utilities Answer Date Recorded In the past 12 months has e [employer], [employer], oil, or water [employer] threatened to shut off services in your [...] answer 12/30/2023 How often do you attend [facility] or jewish services? Patient unable to answer 12/30/2023 Do you belong to any clubs o r organizations such as jainism groups, unions, fraternal or athletic groups, or [...] place to sleep or slept in a assisted (including now)? No 02/09/2023 Housing Stability Vital [...] any time in the past 12 m [facility], were you homeless or living in a assisted (including now)? Patient unable to answer 12/30/2023 Personal Safety Answer Date Recorded Have you ever been in or are you currently in a harmful physical or emotional relationship or is someone making you feel afraid or unsafe? Denies 12/29/2023 Comments No Sex and Gender Information Value Date Recorded Sex Assigned at Not on file Legal Sex Female 2:49 AM RIGGING SUPERVISOR Gender Identity Female 06/06/2022 9:23 PM RIGGING SUPERVISOR Sexual Orientation Not on file Last Filed [...] Type Associated Problems Recent Progress Patient-Stated? Author [facility] Fall Prevention Care Plan Chronic Care Management [...] lifestyle strategies and compensatory methods as needed [facility] Chronic Pain Care Plan Chronic Care Management Worsening( 9:25 AM CDT) Lien Benites, RN Note: Problem: Chronic Pain Goals: 1. Minimize further functional decline 2. Maximize quality of life 3. Control pain Strategies: - Activity/exercise program recommendation - Conservative stepwise pain medicine strategy with multi-disciplinary approach - Recommend healthy lifestyle strategies and compensatory methods as needed Medical Devices Implanted Type Area Record Press Supervisor Device Identifier Shelf Expiration Date Model / Serial / Lot [employer] [id number] Magtrace Liquid Marker 10 Vial Carton - [id number] Implanted:Qty : 1 on 05/31/2019 by Aft, Dalila Hickman MD PhD at [facility] Breast Left: Breast [employer] 11/23/2019 [id number] / / [id number] [employer] 051z-Tz-34-T Implant Mammary Natrelle Te Smooth 152j-Fj-25-T With Fourte - [id number] - [id number] Implanted:Qty : 1 on 05/31/2019 by Uvaldo Mcgowan MD at [facility] Breast Right: Breast [employer] [id number] 08/15/2023 133S-FX-14 -T / [id number] / [employer] 193a-Fd-35-T Implant Mammary Natrelle Te Smooth 904w-Ge-35-T With Fourte - [id number] - [id number] Implanted:Qty : 1 on 05/31/2019 by Uvaldo Mcgowan MD at [facility] Breast Left: Breast [employer] [id number] 12/26/2023 133S-FX-14 -T / [id number] / [employer] 68hp-650 Natrelle 14-13.8cm Style 68hp Smooth Anterior Diaphragm Valve - [id number] - [id number] Implanted:Qty : 1 on 10/12/2019 by Uvaldo Mcgowan MD at [facility] Breast Left: Breast [employer] [id number] 05/02/2022 68HP-650 / [id number] / [id number] [employer] 68hp-650 Natrelle 14-13.8cm Style 68hp Smooth Anterior Diaphragm Valve - [id number] - [id number] Implanted:Qty : 1 on 10/12/2019 by Uvaldo Mcgowan MD at [facility] Breast Right: Breast [employer] [id number] 12/31/2022 68HP-650 / [id number] / [id number] [employer] Excela Low Porfile Power Port 8fr 1.6mm 1 Lumen [id number] - [id number] Implanted:Qty : 1 on 12/22/2022 at [facility] Ang[employer] 07/11/2027 [id number] [facility] KnowRe [id number] Fortify [id number] Footprint Upper Endplate Sagittal Profile 3.5d 12 Latex Free - [id number] Implanted:Qty : 1 on 01/27/2023 by Pedro Sanders MD at [facility] 151.323 / / [facility] [id number] Fortify [id number] Footprint Lower Endplate Sagittal Profile 3.5d 12 Latex Free - [id number] Implanted:Qty : 1 on 01/27/2023 by Pedro Sanders MD at [facility] 151.373 / / [employer] [id number] Xtend L24 Mm 2 Level Spine; Cervical; Anterior Plate Bone - [id number] Implanted:Qty : 1 on 01/27/2023 by Pedro Sanders MD at [facility] 161.224 / / [employer] Xtend Od4.2 Mm L14 Mm Variable Angle; Self Tap Spine Screw Bone 161.314 - [id number] Implanted:Qty : 3 on 01/27/2023 by Pedro Sanders MD at [facility] 161.314 / / [employer] Vip Od4.6 Mm L14 Mm Self Drill Variable Angle Spine Screw Bone N 171.014 - [id number] Implanted:Qty : 1 on 01/27/2023 by Pedro Sanders MD at [facility] 171.014 / / [employer] Quartex Thread Spine Cap Locking 1149.0001 - [id number] Implanted:Qty : 6 on 01/27/2023 by Pedro Sanders MD at [facility] 1149.0001 / / [employer] Quartex 4mm 40mm Curve Javier Spinal Nonsterile Latex Free 1149.7540 - [id number] Implanted:Qty : 2 on 01/27/2023 by Pedro Sanders MD at [facility] 1149.7540 / / [employer] Quartex 3.5mm 14mm Polyaxial Spine Screw Bone Nonsterile Latex 1149.3514 - [id number] Implanted:Qty : 3 on 01/27/2023 by Pedro Sanders MD at [facility] 1149.3514 / / [employer] Quartex 3.5mm 16mm Polyaxial Spine Screw Bone Nonsterile Latex 1149.3516 - [id number] Implanted:Qty : 3 on 01/27/2023 by Pedro Sanders MD at [facility] Medical 1149.3516 / / [employer] Inc Allograft Bone Putty 2.5cc 700-025 - [id number] Implanted:Qty : 1 on 01/27/2023 by Pedro Sanders MD at [facility] N/A: Spine Cervical [employer] [id number] 06/22/2024 700-025 / / [id number] Depuy Synthes Spine Substitute Bone Graft Fibergraft Large Bioactive Glass Putty [id number] - [id number] - [id number] Implanted:Qty : 1 on 01/27/2023 by Pedro Sanders MD at [facility] [employer] Synthes Spine 07/21/2025 [id number] / [id number] / [facility] Medical [id number] Fortify [id number] 12mm Spacer Spinal Nonsterile Latex Free - [id number] Implanted:Qty : 1 on 01/27/2023 by Pedro Sanders MD at [facility] 151.051 / / Insurance [facility] HMO/PPO Address: [address] [address] [place] [address] [facility] HMO/PPO Address: [address] [address] [place] [address] [facility] Advance Directives For more information, please contact: [phone] Documents on File Type Date Recorded Patient Product Manager Expl anation Power of Crisis Counselor 06/08/2022 7:57 PM [place] [address] OF [...] 7:11 AM 12/23/2022 5:18 AM Care Teams Propeller Driven Airplane Mechanic Relationship Specialty Start Date End Date Derek Valderrama MD [address] [place] [address] DR ADAMES [address] [place] [address] PCP - General Internal Medicine 01/11/23 Tad Sanz MD [address] [place] [address] Referring Physician Obstetrics and Gynecology 03/26/19 Adam Tan MD [address] [facility] # [address] [place] [address] Radiation Oncologist Radiation Oncology 02/11/20 AftDalila MD PhD [address] [facility] [place] [address] Surgeon Surgical Oncology 02/11/20 Josselin De Oliveira MD PhD [address] [facility] [address] [place] [address] Medical Oncologist/Automatic Glove Former Medical Oncology 02/13/20 Owen Dan NP [address] [place] [address] [place] [address] Nurse Practitioner Nurse Practitioner 12/09/20 Lisbet Kelley MD [address] [place] [address] [place] [address] Anesthesiologist Pain Management 01/07/23
--- OUTSIDE RECORDS SUMMARY | 2024-06-08 15:43 | XMS_ITS | Clinical Summary ---
Author Organization [facility] Address [address] [place] [address] Care Team Providers Care Privacy Attorney Name Role Phone Bautista Valderrama MD Primary [...] Department Care Team Description 06/07/2024 7:51 PM CHILD CARE SUPERVISOR - 06/07/2024 11:29 PM [facility] Emergency Flasher Emergency Room Critical access hospital[facility] [place] [address] Narcisa Camacho DO Musculoskeletal Pain Discharge Disposition: Home or Self Care (Routine Discharge) 06/07/2024 Travel 05/14/2024 10:23 AM CHILD CARE SUPERVISOR - 05/14/2024 12:41 PM [facility] Emergency Flasher Emergency Room [address] [place] [address] [place] [address] Narcisa Camacho DO Vomiting Discharge Disposition: Home or Self Care (Routine Discharge) 05/14/2024 Travel 05/10/2024 6:16 PM CHILD CARE SUPERVISOR - 05/10/2024 10:30 PM [facility] Emergency Flasher Emergency Room [address] [place] [address] [place] [address] Sumaya Faustin MD Back Pain Discharge Disposition: Home or Self Care (Routine Discharge) 05/10/2024 Travel 05/09/2024 9:46 AM CHILD CARE SUPERVISOR - 05/09/2024 11:59 PM [facility] Hospital Encounter [facility] Ultrasound [address] [place] [address] Perla England MD Discharge Disposition: Home or Self Care (Routine Discharge) 05/09/2024 9:35 AM CHILD CARE SUPERVISOR - 05/09/2024 9:45 AM CHILD CARE SUPERVISOR Hospital Encounter [facility] [address] [place] [address] Non-Staff, Provider Chris Richard MD Discharge Disposition: Home or Self Care (Routine Discharge) 05/09/2024 Travel 05/03/2024 Telephone [facility] Interventional Radiology [address] [place] [address] Beto Sloan RN Preprocedure Call (Patient scheduled for liver bx, check in at 0930. NPO after 0500. Needs a long haul truck driver. Meds with sips of water. Will take last dose of Eliquis on 05/06. All questions were answered and patient voiced understanding.) 03/20/2024 12:06 PM CHILD CARE SUPERVISOR - 03/20/2024 3:52 PM CHILD CARE SUPERVISOR Emergency Flasher Emergency Room [address] [facility] [place] [address] Narcisa Camacho DO Back Pain Discharge Disposition: [...] Sex Assigned at Female 05/09/2024 9:43 AM CHILD CARE SUPERVISOR Legal Sex Female 5:53 PM CHILD CARE SUPERVISOR Gender Identity Not on file Sexual Orientation Not on file Last Filed Vital Signs Vital Sign Reading Time Taken Comments Blood Pressure 141/103 06/07/2024 11:25 PM CHILD CARE SUPERVISOR Pulse 112 06/07/2024 7:58 PM CHILD CARE SUPERVISOR Temperature 36.1 C (96.9 F) 06/07/2024 7:58 PM CHILD CARE SUPERVISOR Respiratory Rate 16 06/07/2024 7:58 PM CHILD CARE SUPERVISOR Oxygen Saturation 95% 06/07/2024 11:25 PM CHILD CARE SUPERVISOR Inhaled Oxygen Concentration - - Weight 83.5 kg (184 lb) 06/07/2024 7:58 PM CHILD CARE SUPERVISOR Height 157.5 cm (5' 2 ) 06/07/2024 7:58 PM CHILD CARE SUPERVISOR Body Mass Index 33.65 06/07/2024 7:58 PM CHILD CARE SUPERVISOR Plan of Treatment Health Maintenance Due Date [...] COMPREHENSIVE METABOLIC PANEL STAT 06/07/2024 8:26 PM CHILD CARE SUPERVISOR CBC W/DIFF AUTOMATED STAT 06/07/2024 8:26 PM CHILD CARE SUPERVISOR LACTIC ACID STAT 05/14/2024 10:47 AM CHILD CARE SUPERVISOR COMPREHENSIVE METABOLIC PANEL STAT 05/14/2024 10:47 AM CHILD CARE SUPERVISOR CBC W/DIFF AUTOMATED STAT 05/14/2024 10:47 AM CHILD CARE SUPERVISOR XR SHOULDER RT 3V STAT 05/10/2024 9:1 3 PM CHILD CARE SUPERVISOR XR SHOULDER LT 3V STAT 05/10/2024 7:5 1 PM CHILD CARE SUPERVISOR XR CHEST PORTABLE STAT 05/10/2024 7:5 [address] LUMB SPINE WO CON STAT 05/10/2024 7:[address] THOR SPINE WO CON STAT 05/10/2024 7:50 PM CHILD CARE SUPERVISOR CTA CHEST+CT ABD+PEL W CON STAT 05/10/2024 7:50 PM CHILD CARE SUPERVISOR ECG 12-LEAD Routine 05/10/2024 7:49 PM CHILD CARE SUPERVISOR LIPASE STAT 05/10/2024 7:11 PM CHILD CARE SUPERVISOR TROPONIN, QUANT STAT 05/10/2024 7:11 PM CHILD CARE SUPERVISOR COMPREHENSIVE METABOLIC PANEL STAT 05/10/2024 7:11 PM CHILD CARE SUPERVISOR CBC W/DIFF AUTOMATED STAT 05/10/2024 7:11 PM CHILD CARE SUPERVISOR US GD TARGETED LIVER BX Routine 05/09/2024 1:30 PM CHILD CARE SUPERVISOR Metastasis to liver (CMS/HCC HHS/HCC) CBC W/DIFF AUTOMATED Routine 05/09/2024 10:42 AM CHILD CARE SUPERVISOR Secondary malignant neoplasm of liver (CMS/HCC HHS/HCC) PROTHROMBIN TIME, VENOUS Routine 05/09/2024 10:42 AM CHILD CARE SUPERVISOR Secondary malignant neoplasm of liver (CMS/HCC HHS/HCC) POCT URINE (BACK OFFICE) Routine 05/09/2024 Metastasis to liver (CMS/HCC HHS/HCC) PATHOLOGY Routine 05/09/2024 12:00 AM CHILD CARE SUPERVISOR CT THOR SPINE WO CON STAT 03/20/2024 1:19 PM [address]ILD CARE SUPERVISOR CT LUMB SPINE WO CON STAT 03/20/2024 1:19 PM [address] CARE SUPERVISOR CT ABD+PEL W CON STAT 03/20/2024 1:19 PM CHILD CARE SUPERVISOR COMPREHENSIVE METABOLIC PANEL STAT 03/20/2024 12:35 PM CHILD CARE SUPERVISOR CBC W/DIFF AUTOMATED STAT 03/20/2024 12:35 PM CHILD CARE SUPERVISOR from Last 3 Months Results * (ABNORMAL) COMPREHENSIVE METABOLIC PANEL (06/07/2024 8:26 PM CHILD CARE SUPERVISOR) Only the most recent of4 resultswithin the time period is included. SODIUM S/P/B 142 136 - 145 MMOL/L 06/07/2024 8:48 PM [facility] POTASSIUM S/P/B 4.2 3.5 - 5.1 MMOL/L 06/07/2024 8:48 PM [facility] CHLORIDE S/P/B 103 98 - 107 MMOL/L 06/07/2024 8:48 PM [facility] CO2 26.9 21.0 - 32.0 MMOL/L 06/07/2024 8:48 PM [facility] GLUCOSE 99 70 - 99 MG/DL 06/07/2024 8:48 PM [facility] Comment: FASTING GLUCOSE 100 TO 125 MG/DL IS CONSISTENT WITH IMPAIRED FASTING GLUCOSE. FASTING GLUCOSE >125 MG/DL IS CONSISTENT WITH DIABETES. RANDOM GLUCOSE >200 MG/DL WITH HYPERGLYCEMIC SYMPTOMS IS CONSISTENT WITH DIABETES. PER ADA GUIDELINES BUN 20 6 - 24 MG/DL 06/07/2024 8:48 PM [facility] CREATININE S/P/B 0.64 0.55 - 1.02 MG/DL 06/07/2024 8:48 PM [facility] CALCIUM S/P/B 9.0 8.4 - 10.5 MG/DL 06/07/2024 8:48 PM [facility] BILIRUBIN TOTAL S/P/B 0.2 0.2 - 1.0 MG/DL 06/07/2024 8:48 PM [facility] Comment: THIS ASSAY IS NOT RECOMMENDED FOR PATIENTS UNDERGOING TREATMENT WITH ELTROMBOPAG DUE TO THE POTENTIAL FOR FALSELY ELEVATED RESULTS. ALKALINE PHOSPHATASE S/P/B 369(H) 37 - 98 U/L 06/07/2024 8:48 PM [facility] AST 141(H) 15 - 37 U/L 06/07/2024 8:48 PM [facility] ALT 79(H) 14 - 59 U/L 06/07/2024 8:48 PM [facility] TOTAL PROTEIN S/P/B 7.4 6.4 - 8.2 G/DL 06/07/2024 8:48 PM CHILD CARE SUPERVISOR [facility] ALBUMIN S/P/B 3.1(L) 3.4 - 5.0 G/DL 06/07/2024 8:48 PM CHILD CARE SUPERVISOR [facility] ANION GAP 12.1 5.0 - 15.0 MMOL/L 06/07/2024 8:48 PM CHILD CARE SUPERVISOR [facility] OSMOLALITY (CALC) 297 MOSM/KG 025 8:48 PM CHILD CARE SUPERVISOR [facility] Comment:REFERENCE RANGE NOT ESTABLISHED GFR ESTIMATE >90 >89 ML/MIN/1. 73 M2 06/07/2024 8:48 PM CHILD CARE SUPERVISOR [facility] GFR NOTES GFR REFERENCE S: 06/07/2024 8:48 PM [facility] Comment: THE ESTIMATED GFR IS CALCULATED [...] FAILURE: <15 ml/min/1.73 m2 06/07/2024 8:26 PM CHILD CARE SUPERVISOR us Narcisa Camacho DO LABORATORY Final Result [facility] [address] [place] [address], * (ABNORMAL) CBC W/DIFF AUTOMATED (06/07/2024 8:26 PM CHILD CARE SUPERVISOR) Only the most recent of5 resultswithin the time period is included. WBC 4.40 4.00 - 10.80 x10'3/uL 06/07/2024 8:31 PM CHILD CARE SUPERVISOR [facility] RBC 3.13(L) 4.10 - 5.40 x10'6/uL 06/07/2024 8:31 PM [facility] HGB 8.8(L) 12.0 - 16.0 G/DL 06/07/2024 8:31 PM [facility] HCT 27.2(L) 36.0 - 47.0 % 06/07/2024 8:31 PM [facility] MCV 86.9 78.0 - 100.0 FL 06/07/2024 8:31 PM [facility] MCH 28.1 27.0 - 31.0 PG 06/07/2024 8:31 PM [facility] MCHC 32.4(L) 33.0 - 36.0 G/DL 06/07/2024 8:31 PM [facility] RDW 14.4 11.5 - 14.5 % 06/07/2024 8:31 PM [facility] PLT 191 150 - 350 x10'3/uL 06/07/2024 8:31 PM [facility] MPV 9.3 7.4 - 10.4 FL 06/07/2024 8:31 PM [facility] CBC COMMENT NORMAL REFERENCE RANGE NOT ESTABLISHED FOR THE PROPORTIONAL LEUKOCYTE DIFFERENTIAL. 06/07/2024 8:31 PM [facility] NEUTROPHILS % 49.3 % 06/07/2024 8:31 PM [facility] LYMPHOCYTES % 32.3 % 06/07/2024 8:31 PM [facility] MONOCYTES % 14.1 % 06/07/2024 8:31 PM [facility] EOSINOPHILS % 2.5 % 06/07/2024 8:31 PM [facility] BASOPHILS % 0.9 % 06/07/2024 8:31 PM [facility] IMMATURE GRANS % 0.9 % 06/07/19 25 8:31 PM [facility] NRBC % 0.0 % 06/07/2024 8:31 PM [facility] ABS. NEUTROPHILS 2.17 1.60 - 8.30 x10'3/uL 06/07/2024 8:31 PM CHILD CARE SUPERVISOR [facility] ABS. LYMPHOCYTES 1.42 0.80 - 4.70 x10'3/uL 06/07/2024 8:31 PM CHILD CARE SUPERVISOR [facility] ABS. MONOCYTES 0.62 0.00 - 1.50 x10'3/uL 06/07/2024 8:31 PM CHILD CARE SUPERVISOR [facility] ABS. EOSINOPHILS 0.11 0.00 - 0.40 x10'3/uL 06/07/2024 8:31 PM CHILD CARE SUPERVISOR [facility] ABS. BASOPHILS 0.04 0.00 - 0.20 x10'3/uL 06/07/2024 8:31 PM CHILD CARE SUPERVISOR [facility] ABS. IMMATURE GRANULOCYTES 0.04(H) 0.00 - 0.03 x10'3/uL 06/07/2024 8:31 PM CHILD CARE SUPERVISOR [facility] ABS. NUCLEATED RBC'S 0.00 0.00 - 0.01 x10'3/uL 06/07/2024 8:31 PM CHILD CARE SUPERVISOR [facility] 06/07/2024 8:26 PM CHILD CARE SUPERVISOR Narcisa Camacho DO LABORATORY Final Result Performing Organization Address [facility] Co de Phone Number [place] [phone] [place] [address], * (ABNORMAL) LACTIC ACID (05/14/2024 10:47 AM CHILD CARE SUPERVISOR) LACTIC ACID VENOUS 3.5(H) 0.4 - 2.0 MMOL/L 05/14/2024 11:15 AM CHILD CARE SUPERVISOR [facility] Comment: AN ORDER FOR A REPEAT LACTIC ACID TEST IS REQUIRED WITHIN 6 HOURS OF DIAGNOSIS ON A PATIENT WITH SEVERE SEPSIS. 05/14/2024 10:4 7 AM CHILD CARE SUPERVISOR Narcisa Camacho DO LABORATORY Final Result [facility] [address] [place] [address], * XR SHOULDER RT 3V (05/10/2024 9:13 PM CHILD CARE SUPERVISOR) Anatomical Region Laterality Modality Shoulder Radiographic Buffy ging 05/10/2024 9:54 PM CHILD CARE SUPERVISOR Impressions 05/10/2024 9:56 PM CHILD CARE SUPERVISOR IMPRESSION: 1. No acute osseous abnormality of the right shoulder. 2. Sclerotic regions throughout the bones compatible with metastasis, better assessed on same-day CT. Referred By: Interpreted By: Bjorn Leo MD, 05/10/2024 9:54 PM Narrative 05/10/2024 9:56 PM CHILD CARE SUPERVISOR [address] [place] [address] Examination: XR SHOULDER RT 3V Exam time: [...] Procedure Note Bjorn Leo MD - 05/10/[address] [place] [address] Examination: XR SHOULDER RT 3V Exam time: [...] XR SHOULDER LT 3V (05/10/2024 7:51 PM CHILD CARE SUPERVISOR) Anatomical Region Laterality Modality Shoulder Radiographic Buffy ging 05/10/2024 8:32 PM CHILD CARE SUPERVISOR Impressions 05/10/2024 8:57 PM CHILD CARE SUPERVISOR IMPRESSION: Skeletal lesions left humeral head neck, left scapula and left ribs consistent with metastatic disease. The attending radiologist has reviewed the image(s) and agrees with the content of this report. Ordered By: SUMAYA FAUSTIN Interpreted By: Slava Morales MD, 05/10/2024 8:32 PM Narrative 05/10/2024 8:57 PM CHILD CARE SUPERVISOR [address] [place] [address] Examination: XR SHOULDER LT 3V Exam time: [...] Procedure Note Dagoberto Gooden MD - 05/10/[address] [place] [address] Examination: XR SHOULDER LT 3V Exam time: [...] * XR CHEST PORTABLE (05/10/2024 7:51 PM CHILD CARE SUPERVISOR) Anatomical Region Laterality Modality Chest Radiographic Buffy ging 05/10/2024 8:36 PM CHILD CARE SUPERVISOR Impressions 05/10/2024 9:02 PM CHILD CARE SUPERVISOR IMPRESSION: Infiltrate or atelectasis hilar to perihilar region right lung with some linear infiltrate or atelectasis right lower lung. Extensive skeletal lesion suggesting extensive skeletal metastatic disease. The attending radiologist has reviewed the image(s) and agrees with the content of this report. Ordered By: SUMAYA FAUSTIN Interpreted By: Slava Morales MD, 05/10/2024 8:36 PM Narrative 05/10/2024 9:02 PM CHILD CARE SUPERVISOR [address] [place] [address] Examination: XR CHEST PORTABLE Exam time: 05/10/2024 [...] Procedure Note Dagoberto Gooden MD - 05/10/2024 [facility] [address] [facility] [address] Examination: XR CHEST PORTABLE Exam time: 05/10/2024 [...] THOR SPINE WO CON (05/10/2024 7:50 PM CHILD CARE SUPERVISOR) Only the most recent of2 resultswithin the time period is included. Anatomical Region Laterality Modality Spine Computed Tomogra phy 05/10/2024 8:44 PM CHILD CARE SUPERVISOR Impressions 05/10/2024 9:06 PM CHILD CARE SUPERVISOR IMPRESSION: 1. No evidence of aortic dissection or other acute aortic syndrome. 2. No CT evidence of post hepatic biopsy consultation. 3. No acute finding of the thoracic or lumbar spine. 4. Extensive metastatic disease throughout the liver and skeleton. Referred By: Interpreted By: Genet Ontiveros DO, 05/10/2024 8:44 PM Narrative 05/10/2024 9:06 PM CHILD CARE SUPERVISOR [address] [place] [address] EXAMINATION: CT THOR SPINE WO CON, CTA [...] joint malalignment. Procedure Note RamaGenetDO - 05/10/2024 [facility] [address] [facility] [place] [address] EXAMINATION: CT THOR SPINE WO CON, CTA [...] Genet Ontiveros DO, 05/10/2024 8:44 PM Sumaya Faustin MD CT Final Result * CT LUMB SPINE WO CON (05/10/2024 7:50 PM CHILD CARE SUPERVISOR) Only the most recent of2 resultswithin the time period is included. Anatomical Region Laterality Modality Spine Computed Tomogra phy 05/10/2024 8:44 PM CHILD CARE SUPERVISOR Impressions 05/10/2024 9:06 PM CHILD CARE SUPERVISOR IMPRESSION: 1. No evidence of aortic dissection or other acute aortic syndrome. 2. No CT evidence of post hepatic biopsy consultation. 3. No acute finding of the thoracic or lumbar spine. 4. Extensive metastatic disease throughout the liver and skeleton. Referred By: Interpreted By: Genet Ontiveros DO, 05/10/2024 8:44 PM Narrative 05/10/2024 9:06 PM CHILD CARE SUPERVISOR [place] [id number] [facility] [place] [address] EXAMINATION: CT THOR SPINE WO CON, CTA [...] malalignment. Procedure Note Genet Ontiveros, - 05/10/[address] [place] [address] EXAMINATION: CT THOR SPINE WO CON, CTA [...] CHEST+CT ABD+PEL W CON (05/10/2024 7:50 PM CHILD CARE SUPERVISOR) Anatomical Region Laterality Modality Abdomen, Chest Computed Tomogra phy 05/10/2024 8:44 PM CHILD CARE SUPERVISOR Impressions 05/10/2024 9:06 PM CHILD CARE SUPERVISOR IMPRESSION: Extensive skeletal lesions and multiple hypodense or hypoenhancing hepatic lesions consistent with metastatic disease. Possible tiny hypoenhancing lesions in the spleen, cannot exclude splenic metastatic disease. Pulmonary infiltrates suggesting pneumonia. Ordered By: SUMAYA FAUSTIN Interpreted By: Dagoberto Gooden MD, 05/10/2024 9:05 PM Narrative 05/10/2024 9:06 PM CHILD CARE SUPERVISOR [place] [id number] [facility] [place] [address] 05/10/2024, 1944 hours. HISTORY: Chest pain. Abdominal [...] DO / Dagoberto Gooden MD - 05/10/[address] [place] [address] 05/10/2024, 1944 hours. HISTORY: Chest pain. Abdominal [...] * ECG 12 lead (05/10/2024 7:49 PM CHILD CARE SUPERVISOR) 05/10/2024 7:49 PM CHILD CARE SUPERVISOR Narrative [facility] - 05/10/2024 8:42 PM CHILD CARE SUPERVISOR [address] [place] [address] Test Date: 2024-05-10 Pat Name: BETO MARIJOHAN Department: 3 Room: EXAM 101 Gender: Female Clamp Carrier Operator: [facility] : 1990 Requested By: SUMAYA FAUSTIN Order Number: [id number] Reading MD: Lucia Encarnacion Measurements Intervals [place] Rate: 100 P: 31 OR: 161 QRS: 12 QRSD: 95 T: 25 QT: 345 QTc: 445 Interpretive Statements SINUS TACHYCARDIA LOW QRS VOLTAGE IN PRECORDIAL LEADS PROBABLE INFERIOR MYOCARDIAL INFARCTION , PROBABLY OLD D CARE SUPERVISOR Procedure Note Lucia Encarnacion MD - 05/10/[address] [place] [address] Test Date: 2024-05-10 Pat Name: BETO PETERSON Department: 3 Room: EXAM 101 Gender: Female Clamp Carrier Operator: [facility] : 1990 Requested By: SUMAYA FAUSTIN Order Number: [id number] Reading MD: Lucia Encarnacion Measurements Intervals [place] Rate: 100 P: 31 OR: 161 QRS: 12 QRSD: 95 T: 25 QT: 345 QTc: 445 Interpretive Statements SINUS TACHYCARDIA LOW QRS VOLTAGE IN PRECORDIAL LEADS PROBABLE INFERIOR MYOCARDIAL INFARCTION , PROBABLY OLD D CARE SUPERVISOR Sumaya Faustin MD ECG ORDERABLES Final Result Performing Organization Address [facility] Co de Phone Number [facility] * TROPONIN, QUANT (05/10/2024 7:11 PM CHILD CARE SUPERVISOR) TROPONIN I HIGH SENSITIVITY <4 0 - 51 ng/L 05/10/2024 7:34 PM CHILD CARE SUPERVISOR [facility] 05/10/2024 7:11 PM CHILD CARE SUPERVISOR Sumaya Faustin MD LABORATORY Final Result Performing Organization Address [facility] Co de Phone Number [facility] [address] [place] [address], [place] [phone] * LIPASE (05/10/2024 7:11 PM CHILD CARE SUPERVISOR) Pathologist [facility] LIPASE 16 16 - 77 UNITS/L 05/10/2024 7:34 PM CHILD CARE SUPERVISOR [facility] 05/10/2024 7:11 PM CHILD CARE SUPERVISOR Sumaya Faustin MD LABORATORY Final Result Performing Organization Address [facility] de Phone Number [facility] [address] [place] [address], [place] [phone] * US GD TARGETED LIVER BX (05/09/2024 1:30 PM CHILD CARE SUPERVISOR) Anatomical Region Laterality Modality Abdomen Ultrasound, Radi ographic Imaging 05/09/2024 8:48 PM CHILD CARE SUPERVISOR Impressions 05/17/2024 8:32 AM CHILD CARE SUPERVISOR Impression: Procedure note for ultrasound-guided liver mass [...] 05/09/2024 8:48 PM Narrative 05/17/2024 8:32 AM CHILD CARE SUPERVISOR [place] [address] IR PROCEDURE NOTE - ULTRASOUND GUIDED LIVER MASS BIOPSY Pre op diagnosis: Liver metastasis Post Op Diagnosis: same Procedure: Ultrasound-guided left lobe of the liver biopsy Primary provider: Aston Rebollar PA-C Supervising provider: Chris Richard M.D. Shot Hole Shooter: none Anesthesia: Local - 0.1% lidocaine IV conscious sedation was administered and monitored by a qualified interventional radiology nurse under supervision of the interventional physician printing bindery assistant. There was continuous monitoring of vital signs including pulse oximetry, end-tidal CO2, and EKG. Total intraservice or [id number] sedation time: 16 minutes. Technique /Findings: Procedure [...] the introducer needle and a 18-gauge Bard Mifflin needle was then advanced under real-time ultrasound guidance through the introducer needle and then activated with biopsy specimen obtained. A blunt stylette was placed into the introducer and the biopsy specimen was removed. The bladder stylette was then removed from the introducer and the 18-gauge Bard Mifflin needle was then advanced under real-time ultrasound [...] Procedure Note Chris Richard MD - 05/17/2024 [place] [address] IR PROCEDURE NOTE - ULTRASOUND GUIDED LIVER MASS BIOPSY Pre op diagnosis: Liver metastasis Post Op Diagnosis: same Procedure: Ultrasound-guided left lobe of the liver biopsy Primary provider: Aston Rebollar PA-C Supervising provider: Chris Richard M.D. Shot Hole Shooter: [email or web address] Anesthesia: Local - 0.1% lidocaine IV conscious sedation was administered and monitored by a qualifiedinterventional radiology nurse under supervision of the interventionalphysician printing bindery assistant. There was continuous monitoring of vital signsincluding pulse oximetry, end-tidal CO2, and EKG. Total intraservice [id number] sedation time: 16 minutes. Technique /Findings: Procedure [...] from the introducer needleand a 18-gauge Bard Mifflin needle was then advanced under real-timeultrasound guidance through the introducer needle and then activated withbiopsy specimen obtained. A blunt stylette was placed into the introducerand the biopsy specimen was removed. The bladder stylette was then removedfrom the introducer and the 18-gauge Bard Mifflin needle was then advancedunder real-time ultrasound guidance [...] PROTIME/INR, VENOUS (PROTHROMBIN TIME) (05/09/2024 10:42 AM CHILD CARE SUPERVISOR) PROTIME 12.9(H) 9.4 - 12.5 SEC 05/09/2024 11:13 AM CHILD CARE SUPERVISOR [facility] INR 1.1 0.8 - 1.1 05/09/2024 11:13 AM CHILD CARE SUPERVISOR [facility] 05/09/2024 10:4 2 AM CHILD CARE SUPERVISOR Chris Richard MD LABORATORY Final Result [facility] [address] [place] [address], [place] [phone] * POCT urine (back office) (05/09/2024) URINE HCG TEST NEGATIVE NEGATIVE [facility] Internal Control: VALID VALID [facility] 05/09/2024 Perla England MD POINT OF CARE TEST ORDERABLES Final Result [facility] [address] [place] [address], [id number] * Pathology (05/09/2024 12:00 AM CHILD CARE SUPERVISOR) PATHOLOGY [facility] Department of Laboratory Medicine [address] [place] [address] , extension [phone] Pathology Report Surgical Pathology Report Name: BETO PETERSON Specimen #: [id number] Age: 9 1990 (Age: 34) Location: [facility] Sex: F Procedure Date: 05/09/2024 Hospital #: [id number] Date Received: 05/09/2024 Date Reported: 05/11/2024 Provider: [...] interpretation, and sign out were performed at [facility], [address] [place] [address]. All immunohistochemical and histochemical tests were developed by and performed at [facility], [address] [place] [address]. All tests reported here have not been [...] onsite evaluation was performed and interpreted at [facility] in [place], [place]. Electronically Signed Out NEO MEZA MD [facility] 05/09/2024 05/09/2024 2:2 5 PM CHILD CARE SUPERVISOR Comment:Liver, left, needle biopsy Perla England MD PATHOLOGY/CYTOLOGY ORDERABLES Final Result [facility] [address] [place] [address], [id number] * CT ABD+PEL W CON (03/20/2024 1:19 PM CHILD CARE SUPERVISOR) Anatomical Region Laterality Modality Abdomen Computed Tomogra phy 03/20/2024 1:29 PM CHILD CARE SUPERVISOR Impressions 03/20/2024 1:38 PM CHILD CARE SUPERVISOR Impression: 1. Extensive multifocal sclerotic osseous metastasis identified. No distinct acute pathologic fracture is identified. 2. Multiple hypodense liver lesions are identified, concerning for multifocal liver metastasis. 3. No lymphadenopathy identified within the abdomen or pelvis. Ordered By: NARCISA CAMACHO Interpreted By: Bjorn Leo MD, 03/20/2024 1:29 PM Narrative 03/20/2024 1:38 PM CHILD CARE SUPERVISOR [address] [place] [address] Examination: CT abdomen and pelvis with IV [...] Procedure Note Bjorn Leo MD - 03/20/[address] [place] [address] Examination: CT abdomen and pelvis with IV [...] Last 3 Months Insurance [employer] Care Teams Privacy Attorney Relationship Specialty Start Date End Date Bautista Valderrama MD [address] [place] [address] PCP - General INTERNAL MEDICINE 05/12/22
--- OUTSIDE RECORDS SUMMARY | 2024-06-08 15:43 | XMS_ITS | Encounter Summary ---
Author Organization [facility] Address [address] [place] [address] Phone Care Team Providers Care Buff Wheel Fabricator Name Role Phone Derek Valderrama MD Primary Care Provider [phone] Tad Sanz MD Unavailable [phone] Adam Tan MD Unavailable Aft, Dalila Hickman MD PhD Unavailable [phone] Ma, Josselin Jeffrey MD PhD Unavailable Owen Dan GAMMA OPERATOR Unavailable [phone] Adelfo Shabazz MD Primary Care Pr ovider Hui Newton RN Unavailable Alvino, Josselin Jeffrey MD PhD Primary Care Provide r Lisbet Kelley MD Unavailable Derek Valderrama MD Primary Care Provider [phone] Encounter Details Date Type Department Care Team [...] on file Legal Sex Female 2:49 AM STICK ROLLER Gender Identity Female 06/06/2022 9:23 PM STICK ROLLER Sexual Orientation Not on file documented as [...] C. difficile suspected 07/01/2023 07/01/202306/30 6:59 PM STICK ROLLER COVID: Suspected 07/01/2023 07/01/2023 07/01/2023 11:45 AM STICK ROLLER Norovirus suspected 07/01/2023 07/01/2023 07/01/19 7:24 PM STICK ROLLER Norovirus 07/01/2023 07/01/2023 07/15/2023 3:05 AM CDT COVID: Suspected 12/29/2023 12/29/2023 12/29/2023 11:35 AM CDT documented as of this encounter Care Teams Buff Wheel Fabricator Relationship Specialty Start Date End Date Derek Valderrama MD PCP - General 01/10/14 06/13/22 Adelfo Shabazz MD [address] [place] [address] PCP - General Radiation Oncology 06/14/22 10/10/22 Josselin De Oliveira MD PhD [address] [facility] [address] [place] [address] PCP - General Medical Oncology 10/11/22 01/10/23 Derek Valderrama MD [address] [place] [address] PCP - General Internal Medicine 01/11/23 Tad Sanz MD [address] [place] [address] Referring Physician Obstetrics and Gynecology 03/26/19 Adam Tan MD [address] [facility] # [address] LL [address] [place] [address] Radiation Oncologist Radiation Oncology 02/11/20 Aft, Dalila Hickman MD PhD [address] [place] [address] Surgeon Surgical Oncology 02/11/20 Josselin De Oliveira MD PhD [address] [facility] [address] [place] [address] Medical Oncologist/Assembler Adjuster Medical Oncology 02/13/20 Owen Dan NP [address] [place] [address] DR [address] [place] [address] Nurse Practitioner Nurse Practitioner 12/09/20 Hui Newton, SKYE [address] [place] [address] Nurse Navigator 08/17/22 08/23/22 Lisbet Kelley MD [address] [place] [address] Anesthesiologist Pain Management 01/07/23 documented as of this encounter
--- OUTSIDE RECORDS SUMMARY | 2024-06-08 15:43 | XMS_ITS | Encounter Summary ---
Author Organization [facility] Address [address] [place] [address] Phone Care Team Providers Care Process Improvement Consultant Name Role Phone Tad Sanz MD Unavailable [phone] Adam Tan MD Unavailable Aft, Dalila Hickman MD PhD Unavailable [phone] Ma, Josselin Jeffrey MD PhD Unavailable [phone] Owen Dan BRANDING SPECIALIST Unavailable [phone] Adelfo Shabazz MD Primary Care Pr ovider Hui Newton RN Unavailable Josselin De Oliveira MD PhD Primary Care Provide r Lisbet Kelley MD Unavailable Derek Valderrama MD Primary Care Provider [phone] Encounter Details Date Type Department Care Team [...] on file Legal Sex Female 2:49 AM DEPUTY CLERK OF SUPERIOR COURT Gender Identity Female 06/06/2022 9:23 PM DEPUTY CLERK OF SUPERIOR COURT Sexual Orientation Not on file documented as [...] C. difficile suspected 07/01/2023 07/01/202306/30 6:59 PM DEPUTY CLERK OF SUPERIOR COURT COVID: Suspected 07/01/2023 07/01/2023 07/01/2023 11:45 AM DEPUTY CLERK OF SUPERIOR COURT Norovirus suspected 07/01/2023 07/01/2023 07/01/19 7:24 PM DEPUTY CLERK OF SUPERIOR COURT Norovirus 07/01/2023 07/01/2023 07/15/2023 3:05 AM CDT COVID: Suspected 12/29/2023 12/29/2023 12/29/2023 11:35 AM CDT documented as of this encounter Care Teams Process Improvement Consultant Relationship Specialty Start Date End Date Adelfo Shabazz MD [address] [place] [address] PCP - General Radiation Oncology 06/14/22 10/10/22 Josselin De Oliveira MD PhD [address] [facility] [address] [place] [address] PCP - General Medical Oncology 10/11/22 01/10/23 Derek Valderrama MD [address] [place] [address] PCP - General Internal Medicine 01/11/23 Tad Sanz MD [address] [facility] [place] [address] Referring Physician Obstetrics and Gynecology 03/26/19 Adam Tan MD [address] [facility] # LL LL [address] [place] [address] Radiation Oncologist Radiation Oncology 02/11/20 Aft, Dalila Hickman MD PhD [address] [place] [address] Surgeon Surgical Oncology 02/11/20 Josselin De Oliveira MD PhD [address] [facility] [address] [place] [address] Medical Oncologist/Motor Teacher Medical Oncology 02/13/20 Owen Dan NP [address] [facility] [address] [place] [address] Nurse Practitioner Nurse Practitioner 12/09/20 Hui Newton, SKYE [address] [place] [address] Nurse Navigator 08/17/22 08/23/22 Lisbet Kelley MD [address] [place] [address] Anesthesiologist Pain Management 01/07/23 documented as of this encounter
--- OUTSIDE RECORDS SUMMARY | 2024-06-08 15:43 | XMS_ITS | Referral Summary ---
Author Organization [facility] [employer] Address [address] [place] [address] Care Team Providers Care Junior Software Developer Name Role Phone Derek Valderrama MD Primary Care Provider [phone] Source Comments [facility],non-owned Affiliates and Associated Physician Practices is amultiple site organization consisting of ambulatory clinics and hospital sitesin [place], [place], [place] and [place]. This disclosure is being madepursuant to the Care Everywhere program and may not contain all information available regarding this patient. Last updated 18.[facility] [employer] Allergies Active Allergy Reactions Criticality Noted Date [...] Comments Blood Pressure 110/78 05/12/2021 10:03 AM ACID LOADER Pulse 79 05/12/2021 10:03 AM ACID LOADER Temperature 37.1 C (98.8 F) 05/12/2021 10:03 AM ACID LOADER Respiratory Rate 16 05/12/2021 10:03 AM ACID LOADER Oxygen Saturation 98% 05/12/2021 10:03 AM ACID LOADER Inhaled Oxygen Concentration - - Weight 102.1 kg (225 lb) 05/12/2021 10:03 AM ACID LOADER Height 157.5 cm (5' 2 ) 05/12/2021 10:03 AM ACID LOADER Body Mass Index 41.15 05/12/2021 10:03 AM ACID LOADER Plan of Treatment Not on file Care Teams Junior Software Developer Relationship Specialty Start Date End Date Derek Valderrama MD [address] [place], [place] [address] PCP - General Internal Medicine 05/12/21
--- OUTSIDE RECORDS SUMMARY | 2024-06-08 15:43 | XMS_ITS | Clinical Summary ---
Author Organization [facility] Address [address] [place] [address] Care Team Providers Care Branch Lead Name Role Phone Tad Sanz MD Unavailable [phone] Adam Tan MD Unavailable Aft, Dalila Hickman MD PhD Unavailable [phone] Ma, Josselin Jeffrey MD PhD Unavailable SyOwen patterson ADMINISTRATIVE APPEALS TRIBUNAL MEMBER Unavailable [phone] Lisbet Kelley MD Unavailable Derek Valderrama MD Primary Care Provider [phone] Allergies Active Allergy Reactions Criticality Noted Date [...] (02/09/2023 2:43 AM CDT): 02/05: blood cultures ([facility]) come back positive, one of which was drawn from her port. (Call back [phone]. ) Anarobic culture grew gram + cocci [...] vomiting includes medication side effects (ribociclib/memantine) vs BRIDGE/STRUCTURE INSPECTION TEAM LEADER malignancy (post radiation related). No obstructive symptoms [...] vomiting includes medication side effects (ribociclib/memantine) vs BRIDGE/STRUCTURE INSPECTION TEAM LEADER malignancy (post radiation related). No obstructive symptoms [...] vomiting includes medication side effects (ribociclib/memantine) vs BRIDGE/STRUCTURE INSPECTION TEAM LEADER malignancy (post radiation related). No obstructive symptoms [...] vomiting includes medication side effects (ribociclib/memantine) vs BRIDGE/STRUCTURE INSPECTION TEAM LEADER malignancy (post radiation related). No obstructive symptoms [...] out upon extensive comparison of imaging from [place] and the one done at [facility] as IP. - Pt was on Eliquis [...] (10/16/2020): Added automatically from request for surgery [id number] History of vitamin D deficiency 10/01/2020 Excess skin of upper extremity 09/07/2020 Overview (09/07/2020): Added automatically from request for surgery [id number] Acquired deformity of upper extremity 09/07/2020 Overview (09/07/2020): Added automatically from request for surgery [id number] Encounter for follow-up surveillance of breast c ancer 08/04/2020 Unwanted fertility 10/08/2019 Overview (10/08/2019): Added automatically from request for surgery [id number] Absence of breast, acquired, bilateral 0 Overview (09/27/2019): Added automatically from request for surgery [id number] Follow-up examination, following other surgery 0 09/06/2019 Malignant neoplasm of upper- inner quadrant of left breast in female, estrogen receptor positive (CMS/HCC) 04/30/2019 Cancer Staging:Pathologic:Stage IB(pT2, pN0(sn), cM0, G3, ER+, IL+, HER2-, Oncotype DX score: 20) - Signed [...] (12/22/2021 4:53 PM CDT): -H x of ER/IL+, HER2 negative breast cancer that recurred after [...] (12/21/2021 11:24 PM CDT): -H x of ER/IL+, HER2 negative breast cancer that recurred after [...] Type Department Care Team Description 05/25/2024 Telephone [facility] [address] [place] [address] Jazmine Bauer RN Appointment 03/14/2024 Documentation [facility] Oncology [address] [facility] [address] [place] [address] Angelika Morrow RN from Last [...] BREAST RECONSTRUCTION 04/25/2019 - 04/24/2020 x 5 [id number] DRUG-SCR CENTRAL LINE PLACEMENT > 5 [...] oz pur e alcohol) [facility] Utilities Answer Date Recorded In the past 12 months has [employer] gas, oil, or water [employer] threatened to shut off services in your [...] often do you attend chur ch or protestant services? Patient unable to answer 12/30/2023 Do [...] place to sleep or slept in a retirement (including now)? No 02/09/2023 Housing Stability Vital [...] any time in the past 12 m [facility], were you homeless or living in a retirement (including now)? Patient unable to answer 12/30/2023 Personal Safety Answer Date Recorded Have you ever been in or are you currently in a harmful physical or emotional relationship or is someone making you feel afraid or unsafe? Denies 12/29/2023 Comments No Sex and Gender Information Value Date Recorded Sex Assigned at Not on file Legal Sex Female 2:49 AM GERICARE AIDE Gender Identity Female 06/06/2022 9:23 PM GERICARE AIDE Sexual Orientation Not on file Obstetrics History [...] Type Associated Problems Recent Progress Patient-Stated? Author [facility] Fall Prevention Care Plan Chronic Care [...] lifestyle strategies and compensatory methods as needed [facility] Chronic Pain Care Plan Chronic Care Management Worsening( 9:25 AM CDT) Lien Benites, RN Note: Problem: Chronic Pain Goals: 1. Minimize further functional decline 2. Maximize quality of life 3. Control pain Strategies: - Activity/exercise program recommendation - Conservative stepwise pain medicine strategy with multi-disciplinary approach - Recommend healthy lifestyle strategies and compensatory methods as needed Medical Devices Implanted Type Area Adjunct Psychology Professor Device Identifier Shelf Expiration Date Model / Serial / Lot [employer] [id number] Magtrace Liquid Marker 10 Vial Carton - [id number] Implanted:Qty : 1 on 05/31/2019 by Aft, Dalila Hickman MD PhD at [facility] Breast Left: Breast [employer] 11/23/2019 [id number] / / [id number] Aller[employer] 350n-Ws-40-T Implant Mammary Natrelle Te Smooth 672r-Gl-76-T With Fourte - [id number] - [id number] Implanted:Qty : 1 on 05/31/2019 by Uvaldo Mcgowan MD at [facility] Breast Right: Breast [employer] [id number] 08/15/2023 133S-FX-14 -T / [id number] / [employer] 516u-Hz-61-T Implant Mammary Natrelle Te Smooth 249y-Wm-21-T With Fourte - [id number] - [id number] Implanted:Qty : 1 on 05/31/2019 by Uvaldo Mcgowan MD at [facility] Breast Left: Breast [employer] [id number] 12/26/2023 133S-FX-14 -T / [id number] / [employer] 68hp-650 Natrelle 14-13.8cm Style 68hp Smooth Anterior Diaphragm Valve - [id number] - [id number] Implanted:Qty : 1 on 10/12/2019 by Uvaldo Mcgowan MD at [facility] Breast Left: Breast [employer] [id number] 05/02/2022 68HP-650 / [id number] / [id number] [employer] 68hp-650 Natrelle 14-13.8cm Style 68hp Smooth Anterior Diaphragm Valve - [id number] - [id number] Implanted:Qty : 1 on 10/12/2019 by Uvaldo Mcgowan MD at [facility] Breast Right: Breast [employer] [id number] 12/31/2022 68HP-650 / [id number] / [id number] Ang[employer] Excela Low Porfile Power Port 8fr 1.6mm 1 Lumen [id number] - [id number] Implanted:Qty : 1 on 12/22/2022 at [facility] Ang[employer] Dynamics 07/11/2027 [id number] Gl[employer] [id number] Fortify 64u17el Footprint Upper Endplate Sagittal Profile 3.5d 12 Latex Free - [id number] Implanted:Qty : 1 on 01/27/2023 by Pedro Sanders MD at [facility] [employer] 151.323 / / [employer] [id number] Fortify [id number] Footprint Lower Endplate Sagittal Profile 3.5d 12 Latex Free - [id number] Implanted:Qty : 1 on 01/27/2023 by Pedro Sanders MD at [facility] [employer] 151.373 / / [employer] [id number] Xtend L24 Mm 2 Level Spine; Cervical; Anterior Plate Bone - [id number] Implanted:Qty : 1 on 01/27/2023 by Pedro Sanders MD at [facility] [employer] 161.224 / / [employer] Xtend Od4.2 Mm L14 Mm Variable Angle; Self Tap Spine Screw Bone 161.314 - [id number] Implanted:Qty : 3 on 01/27/2023 by Pedro Sanders MD at [facility] [employer] 161.314 / / [employer] Vip Od4.6 Mm L14 Mm Self Drill Variable Angle Spine Screw Bone N 171.014 - [id number] Implanted:Qty : 1 on 01/27/2023 by Pedro Sanders MD at [facility] [employer] 171.014 / / [employer] Quartex Thread Spine Cap Locking 1149.0001 - [id number] Implanted:Qty : 6 on 01/27/2023 by Pedro Sanders MD at [facility] 1149.0001 / / [employer] Quartex 4mm 40mm Curve Javier Spinal Nonsterile Latex Free 1149.7540 - [id number] Implanted:Qty : 2 on 01/27/2023 by Pedro Sanders MD at [facility] 1149.7540 / / [employer] Quartex 3.5mm 14mm Polyaxial Spine Screw Bone Nonsterile Latex 1149.3514 - [id number] Implanted:Qty : 3 on 01/27/2023 by Pedro Sanders MD at [facility] 1149.3514 / / Glob Medical Quartex 3.5mm 16mm Polyaxial Spine Screw Bone Nonsterile Latex 1149.3516 - [id number] Implanted:Qty : 3 on 01/27/2023 by Pedro Sanders MD at [facility] 1149.3516 / / Cerapedics Inc Allograft Bone Putty 2.5cc 700-025 - [id number] Implanted:Qty : 1 on 01/27/2023 by Pedro Sanders MD at [facility] N/A: Spine Cervical [employer] Inc [id number] 06/22/2024 700-025 / / [id number] Depuy Synthes Spine Substitute Bone Graft Fibergraft Large Bioactive Glass Putty [id number] - [id number] - [id number] Implanted:Qty : 1 on 01/27/2023 by Pedro Sanders MD at [facility] Depuy Synthes Spine 07/21/2025 [id number] / [id number] / [facility] [id number] Fortify [id number] 12mm Spacer Spinal Nonsterile Latex Free - [id number] Implanted:Qty : 1 on 01/27/2023 by Pedro Sanders MD at [facility] 151.051 / / Insurance [facility] AETNA COVENTRY HMO/POS Advance Directives For more information, please contact: [phone] Documents on File Type Date Recorded Patient Band Tumbler Expl anation Power of Senior Director Marketing 06/08/2022 7:57 PM [facility] HEALTH CARE.pdf * Full Code [...] 7:11 AM 12/23/2022 5:18 AM Care Teams Branch Lead Relationship Specialty Start Date End Date Derek Valderrama MD [address] [place] [address] [place] [address] PCP - General Internal Medicine 01/11/23 Tad Sanz MD [address] [facility] [place] [address] Referring Physician Obstetrics and Gynecology 03/26/19 Adam Tan MD [address] [facility] # [address] LL [address] [place] [address] Radiation Oncologist Radiation Oncology 02/11/20 Aft, Dalila Hickman MD PhD [address] [place] [address] Surgeon Surgical Oncology 02/11/20 Josselin De Oliveira MD PhD [address] [facility] [address] [place] [address] Medical Oncologist/Junior Media Buyer Medical Oncology 02/13/20 Owen Dan NP [address] [place] [address] [address] [place] [address] Nurse Practitioner Nurse Practitioner 12/09/20 Lisbet Kelley MD [address] [place] [address] [address] [place] [address] Anesthesiologist Pain Management 01/07/23
--- OUTSIDE RECORDS SUMMARY | 2024-06-08 15:43 | XMS_ITS | Encounter Summary ---
Author Organization [facility] Address [address] [place] [address] Care Team Providers Care Tetryl Boiling Tub Operator Name Role Phone Derek Valderrama MD Primary Care Provider [phone] Tad Sanz MD Unavailable [phone] Pauline Greene MD Unavailable [phone] Adam Tan MD Unavailable Aft, Dalila Hickman MD PhD Unavailable [phone] Ma, Josselin Jeffrey MD PhD Unavailable Owen Dan AIRPORT SALES AGENT Unavailable [phone] Adelfo Shabazz MD Primary Care Pr ovider Hui Newton RN Unavailable Alvino, Josselin Jeffrey MD PhD Primary Care Provide r Lisbet Kelley MD Unavailable Derek Valderrama MD Primary Care Provider [phone] Encounter Details Date Type Department Care Team (Late st Contact Info) Description 01/28/2020 Telephone [facility] [address] [place] [address] Aminta Brower, RT Social History [...] on file Legal Sex Female 2:49 AM EMPLOYEE BENEFITS ADMINISTRATOR Gender Identity Female 06/06/2022 9:23 PM EMPLOYEE BENEFITS ADMINISTRATOR Sexual Orientation Not on file documented as [...] C. difficile suspected 07/01/2023 07/01/202306/30 6:59 PM EMPLOYEE BENEFITS ADMINISTRATOR COVID: Suspected 07/01/2023 07/01/2023 07/01/2023 11:45 AM EMPLOYEE BENEFITS ADMINISTRATOR Norovirus suspected 07/01/2023 07/01/2023 07/01/19 7:24 PM EMPLOYEE BENEFITS ADMINISTRATOR Norovirus 07/01/2023 07/01/2023 07/15/2023 3:05 AM CDT COVID: Suspected 12/29/2023 12/29/2023 12/29/2023 11:35 AM CDT documented as of this encounter Care Teams Tetryl Boiling Tub Operator Relationship Specialty Start Date End Date Derek Valderrama MD PCP - General 01/10/14 06/13/22 Adelfo Shabazz MD [address] [place] [address] PCP - General Radiation Oncology 06/14/22 10/10/22 Josselin De Oliveira MD PhD [address] [place] [address] [address] [place] [address] PCP - General Medical Oncology 10/11/22 01/10/23 Derek Valderrama MD [address] [place] [address] PCP - General Internal Medicine 01/11/23 Tad Sanz MD [address] [place], [place] [address] Referring Physician Obstetrics and Gynecology 03/26/19 Pauline Greene MD [address] [facility] [address] [place] [address] Medical Oncologist/City Route Driver Medical Oncology 06/28/19 02/12/20 Adam Tan MD [address] [facility] # [address] LL [address] [place] [address] Radiation Oncologist Radiation Oncology 02/11/20 Dalila Smith MD PhD [address] [facility] [place] [address] Surgeon Surgical Oncology 02/11/20 Josselin De Oliveira MD PhD [address] [facility] [address] [place] [address] Medical Oncologist/City Route Driver Medical Oncology 02/13/20 Owen Dan NP [address] [place] [address] Nurse Practitioner Nurse Practitioner 12/09/20 Hui Newton, SKYE [address] [place] [address] Nurse Navigator 08/17/22 08/23/22 Lisbet Kelley MD [address] [place] [address] Anesthesiologist Pain Management 01/07/23 documented as of this encounter
--- OUTSIDE RECORDS SUMMARY | 2024-06-08 15:43 | XMS_ITS | Encounter Summary ---
Author Organization [facility] Address [address] [place] [address] Phone Care Team Providers Care Insurance Sales Supervisor Name Role Phone Derek Valderrama MD Primary Care Provider [phone] Tad Sanz MD Unavailable [phone] Adam Tan MD Unavailable Aft, Dalila Hickman MD PhD Unavailable [phone] Ma, Josselin Jeffrey MD PhD Unavailable Owen Dan DATA MODELER Unavailable [phone] Adelfo Shabazz MD Primary Care Pr ovider Hui Newton RN Unavailable Alvino, Josselin Jeffrey MD PhD Primary Care Provide r Lisbet Kelley MD Unavailable Derek Valderrama MD Primary Care Provider [phone] Encounter Details Date Type Department Care Team [...] on file Legal Sex Female 2:49 AM STRIP CUTTER Gender Identity Female 06/06/2022 9:23 PM STRIP CUTTER Sexual Orientation Not on file documented as [...] C. difficile suspected 07/01/2023 07/01/202306/30 6:59 PM STRIP CUTTER COVID: Suspected 07/01/2023 07/01/2023 07/01/2023 11:45 AM STRIP CUTTER Norovirus suspected 07/01/2023 07/01/2023 07/01/19 7:24 PM STRIP CUTTER Norovirus 07/01/2023 07/01/2023 07/15/2023 3:05 AM CDT COVID: Suspected 12/29/2023 12/29/2023 12/29/2023 11:35 AM CDT documented as of this encounter Care Teams Insurance Sales Supervisor Relationship Specialty Start Date End Date Derek Valderrama MD PCP - General 01/10/14 06/13/22 Adelfo Shabazz MD [address] [place] [address] PCP - General Radiation Oncology 06/14/22 10/10/22 Joseslin De Oliveira MD PhD [address] [facility] [address] [place] [address] PCP - General Medical Oncology 10/11/22 01/10/23 Derek Valderrama MD [address] [place] [address] PCP - General Internal Medicine 01/11/23 Tad Sanz MD [address] [place] [address] Referring Physician Obstetrics and Gynecology 03/26/19 Adam Tan MD 49[address] [facility] [address] [place] [address] Radiation Oncologist Radiation Oncology 02/11/20 Aft, Dalila Hickman MD PhD [address] [place] [address] Surgeon Surgical Oncology 02/11/20 Josselin De Oliveira MD PhD [address] [facility] [address] [place] [address] Medical Oncologist/Import/Export Clerk Medical Oncology 02/13/20 Owen Dan NP [address] [place] [address] [address] [place] [address] Nurse Practitioner Nurse Practitioner 12/09/20 Hui Newton, SKYE [address] [place] [address] Nurse Navigator 08/17/22 08/23/22 Lisbet Kelley MD [address] [place] [address] Anesthesiologist Pain Management 01/07/23 documented as of this encounter
--- OUTSIDE RECORDS SUMMARY | 2024-06-08 15:43 | XMS_ITS | Encounter Summary ---
Author Organization [facility] Address [address] [place] [address] Care Team Providers Care Machine Bunch Maker Name Role Phone Bautista Valderrama MD Primary Care Provider Reason for Visit * Reason Comments Musculoskeletal Pain Encounter Details Date Type Department Care Team (Late st Contact Info) Description 06/07/2024 7:51 PM FRANCHISE CONSULTANT - 06/07/2024 11:29 PM FRANCHISE CONSULTANT Emergency [facility] [place], [place] [id number] Jeremy Esposito DO [address] [place] [address] [id number] Musculoskeletal Pain Discharge Disposition: Home or Self Care (Routine Discharge) Social History Tobacco Use Types Packs/Day Years Used Date Smoking Tobacco: Never Smokeless Tobacco: Never Alcohol Use Standard Drinks/Week Comments Not Currently 0 (1 standard drink = 0.6 oz pur e alcohol) Comments No Sex and Gender Information Value Date Recorded Sex Assigned at Female 05/09/2024 9:43 AM FRANCHISE CONSULTANT Legal Sex Female 5:53 PM FRANCHISE CONSULTANT Gender Identity Not on file Sexual Orientation Not on file documented as of this encounter Last Filed Vital Signs Vital Sign Reading Time Taken Comments Blood Pressure 141/103 06/07/2024 11:25 PM FRANCHISE CONSULTANT Pulse 112 06/07/2024 7:58 PM FRANCHISE CONSULTANT Temperature 36.1 C (96.9 F) 06/07/2024 7:58 PM FRANCHISE CONSULTANT Respiratory Rate 16 06/07/2024 7:58 PM FRANCHISE CONSULTANT Oxygen Saturation 95% 06/07/2024 11:25 PM FRANCHISE CONSULTANT Inhaled Oxygen Concentration - - Weight 83.5 kg (184 lb) 06/07/2024 7:58 PM FRANCHISE CONSULTANT Height 157.5 cm (5' 2 ) 06/07/2024 7:58 PM FRANCHISE CONSULTANT Body Mass Index 33.65 06/07/2024 7:58 PM FRANCHISE CONSULTANT documented in this encounter Discharge Instructions * Attachments The following attachments cannot be sent through Care Everywhere. * Cancer Pain Syndromes Discharge Instructions ([place]) documented in this encounter Medications at Time [...] jaw since Tuesday. Hx metastatic breast ca. CHISE CONSULTANT documented in this encounter Plan of Treatment Not on file documented as of this encounter Procedures Procedure Name Priority Date/Time Associated Diagnosis Comments COMPREHENSIVE METABOLIC PANEL STAT 06/07/2024 8:26 PM FRANCHISE CONSULTANT CBC W/DIFF AUTOMATED STAT 06/07/2024 8:26 PM FRANCHISE CONSULTANT documented in this encounter Results * (ABNORMAL) COMPREHENSIVE METABOLIC PANEL (06/07/2024 8:26 PM FRANCHISE CONSULTANT) SODIUM S/P/B 142 136 - 145 MMOL/L 06/07/2024 8:48 PM FRANCHISE CONSULTANT [facility] POTASSIUM S/P/B 4.2 3.5 - 5.1 MMOL/L 06/07/2024 8:48 PM FRANCHISE CONSULTANT [facility] CHLORIDE S/P/B 103 98 - 107 MMOL/L 06/07/2024 8:48 PM FRANCHISE CONSULTANT [facility] CO2 26.9 21.0 - 32.0 MMOL/L 06/07/2024 8:48 PM [facility] GLUCOSE 99 70 - 99 MG/DL 06/07/2024 8:48 PM [facility] Comment: FASTING GLUCOSE 100 TO 125 MG/DL IS CONSISTENT WITH IMPAIRED FASTING GLUCOSE. FASTING GLUCOSE >125 MG/DL IS CONSISTENT WITH DIABETES. RANDOM GLUCOSE >200 MG/DL WITH HYPERGLYCEMIC SYMPTOMS IS CONSISTENT WITH DIABETES. PER ADA GUIDELINES BUN 20 6 - 24 MG/DL 06/07/2024 8:48 PM FRANCHISE CONSULTANT [facility] CREATININE S/P/B 0.64 0.55 - 1.02 MG/DL 06/07/2024 8:48 PM [facility] CALCIUM S/P/B 9.0 8.4 - 10.5 MG/DL 06/07/2024 8:48 PM [facility] BILIRUBIN TOTAL S/P/B 0.2 0.2 - 1.0 MG/DL 06/07/2024 8:48 PM [facility] Comment: THIS ASSAY IS NOT RECOMMENDED FOR PATIENTS UNDERGOING TREATMENT WITH ELTROMBOPAG DUE TO THE POTENTIAL FOR FALSELY ELEVATED RESULTS. ALKALINE PHOSPHATASE S/P/B 369(H) 37 - 98 U/L 06/07/2024 8:48 PM FRANCHISE CONSULTANT [facility] AST 141(H) 15 - 37 U/L 06/07/2024 8:48 PM FRANCHISE CONSULTANT [facility] ALT 79(H) 14 - 59 U/L 06/07/2024 8:48 PM FRANCHISE CONSULTANT [facility] TOTAL PROTEIN S/P/B 7.4 6.4 - 8.2 G/DL 06/07/2024 8:48 PM FRANCHISE CONSULTANT [facility] ALBUMIN S/P/B 3.1(L) 3.4 - 5.0 G/DL 06/07/2024 8:48 PM FRANCHISE CONSULTANT [facility] ANION GAP 12.1 5.0 - 15.0 MMOL/L 06/07/2024 8:48 PM FRANCHISE CONSULTANT [facility] OSMOLALITY (CALC) 297 MOSM/KG 025 8:48 PM FRANCHISE CONSULTANT [facility] Comment:REFERENCE RANGE NOT ESTABLISHED GFR ESTIMATE >90 >89 ML/MIN/1. 73 M2 06/07/2024 8:48 PM FRANCHISE CONSULTANT [facility] GFR NOTES GFR REFERENCE S: 06/07/2024 8:48 PM FRANCHISE CONSULTANT [facility] Comment: THE ESTIMATED GFR [...] FAILURE: <15 ml/min/1.73 m2 06/07/2024 8:26 PM FRANCHISE CONSULTANT us Jeremy Esposito DO LABORATORY Final Result [facility] [address] [place] [address], * (ABNORMAL) CBC W/DIFF AUTOMATED (06/07/2024 8:26 PM FRANCHISE CONSULTANT) WBC 4.40 4.00 - 10.80 x10'3/uL 06/07/2024 8:31 PM [facility] RBC 3.13(L) 4.10 - 5.40 x10'6/uL 06/07/2024 8:31 PM [facility] HGB 8.8(L) 12.0 - 16.0 G/DL 06/07/2024 8:31 PM [facility] HCT 27.2(L) 36.0 - 47.0 % 06/07/2024 8:31 PM [facility] MCV 86.9 78.0 - 100.0 FL 06/07/2024 8:31 PM [facility] MCH 28.1 27.0 - 31.0 PG 06/07/2024 8:31 PM [facility] MCHC 32.4(L) 33.0 - 36.0 G/DL 06/07/2024 8:31 PM [facility] RDW 14.4 11.5 - 14.5 % 06/07/2024 8:31 PM [facility] PLT 191 150 - 350 x10'3/uL 06/07/2024 8:31 PM [facility] MPV 9.3 7.4 - 10.4 FL 06/07/2024 8:31 PM [facility] CBC COMMENT NORMAL REFERENCE RANGE NOT ESTABLISHED FOR THE PROPORTIONAL LEUKOCYTE DIFFERENTIAL. 06/07/2024 8:31 PM [facility] NEUTROPHILS % 49.3 % 06/07/2024 8:31 PM [facility] LYMPHOCYTES % 32.3 % 06/07/2024 8:31 PM [facility] MONOCYTES % 14.1 % 06/07/2024 8:31 PM [facility] EOSINOPHILS % 2.5 % 06/07/2024 8:31 PM [facility] BASOPHILS % 0.9 % 06/07/2024 8:31 PM [facility] IMMATURE GRANS % 0.9 % 06/07/19 8:31 PM FRANCHISE CONSULTANT [facility] NRBC % 0.0 % 06/07/2024 8:31 PM FRANCHISE CONSULTANT [facility] ABS. NEUTROPHILS 2.17 1.60 - 8.30 x10'3/uL 06/07/2024 8:31 PM FRANCHISE CONSULTANT [facility] ABS. LYMPHOCYTES 1.42 0.80 - 4.70 x10'3/uL 06/07/2024 8:31 PM FRANCHISE CONSULTANT [facility] ABS. MONOCYTES 0.62 0.00 - 1.50 x10'3/uL 06/07/2024 8:31 PM FRANCHISE CONSULTANT [facility] ABS. EOSINOPHILS 0.11 0.00 - 0.40 x10'3/uL 06/07/2024 8:31 PM FRANCHISE CONSULTANT [facility] ABS. BASOPHILS 0.04 0.00 - 0.20 x10'3/uL 06/07/2024 8:31 PM FRANCHISE CONSULTANT [facility] ABS. IMMATURE GRANULOCYTES 0.04(H) 0.00 - 0.03 x10'3/uL 06/07/2024 8:31 PM FRANCHISE CONSULTANT [facility] ABS. NUCLEATED RBC'S 0.00 0.00 - 0.01 x10'3/uL 06/07/2024 8:31 PM [facility] 06/07/2024 8:26 PM FRANCHISE CONSULTANT Jeremy Esposito DO LABORATORY Final Result [facility] [address] [place] [address], documented in this encounter Visit Diagnoses Diagnosis [...] Tue06/08/24 at 0144 Given 06/07/2024 11:16 PM FRANCHISE CONSULTANT 3 mLs HYDROmorphone (DILAUDID) injection 1 mg 1 mg, Intravenous, Once, 1 dose, On Ana 06/07/24 at 2014, Administer slowly over at least 2-3 minutes. Given 06/07/2024 8:32 PM FRANCHISE CONSULTANT 1 mg HYDROmorphone (DILAUDID) injection 1 mg 1 mg, Intravenous, Once, 1 dose, On Ana 06/07/24 at 2114, Administer slowly over at least 2-3 minutes. Given 06/07/2024 9:12 PM FRANCHISE CONSULTANT 1 mg HYDROmorphone (DILAUDID) injection 1 mg 1 mg, Intravenous, Once, 1 dose, On Ana 06/07/24 at 0, Administer slowly over at least 2-3 minutes. Given 06/07/2024 10:41 PM FRANCHISE CONSULTANT 1 mg sodium chloride 0.9% bolus infusion 1,000 mL 1,000 mL, Intravenous, Administer over 30 Minutes, Once, 1 dose, On Ana 06/07/24 at 2014 New Bag 06/07/2024 8:32 PM FRANCHISE CONSULTANT 1,000 mLs 2000 mL/hr documented in this encounter Active and Recently Administered Medications Times are shown in FRANCHISE CONSULTANT. Scheduled Medication Order 06/05/2024 06/06/2024 06/07/2024 HYDROmorphone [...] RN) documented in this encounter Care Teams Machine Bunch Maker Relationship Specialty Start Date End Date Bautista Valderrama MD [address] [place] [address] PCP - General INTERNAL MEDICINE 05/12/22 documented as of this encounter
--- OUTSIDE RECORDS SUMMARY | 2024-06-08 15:43 | XMS_ITS | Encounter Summary ---
Author Organization [facility] Address [address] [place] [address] Phone Care Team Providers Care Lokie Engineer Name Role Phone Derek Valderrama MD Primary Care Provider [phone] Tad Sanz MD Unavailable [phone] Adam Tan MD Unavailable Aft, Dalila Hickman MD PhD Unavailable [phone] Alvino, Josselin Jeffrey MD PhD Unavailable Owen Dan TRACK LAYING SUPERVISOR Unavailable [phone] Adelfo Shabazz MD Primary Care Pr ovider Hui Newton RN Unavailable Alvino, Josselin Jeffrey MD PhD Primary Care Provide r Lisbet Kelley MD Unavailable Derek Valderrama MD Primary Care Provider [phone] Encounter Details Date Type Department Care Team (Late st Contact Info) Description 09/29/2020 Orders Only [facility] Oncology [address] [facility] 7th [place] [address] [place] [address] Josselin De Oliveira MD PhD [address] [facility] [address] [place] [address] Social History Tobacco Use Types Packs/Day Years [...] on file Legal Sex Female 2:49 AM DIPPER OPERATOR Gender Identity Female 06/06/2022 9:23 PM DIPPER OPERATOR Sexual Orientation Not on file documented [...] C. difficile suspected 07/01/2023 07/01/202306/30 6:59 PM DIPPER OPERATOR COVID: Suspected 07/01/2023 07/01/2023 07/01/2023 11:45 AM DIPPER OPERATOR Norovirus suspected 07/01/2023 07/01/2023 07/01/19 7:24 PM DIPPER OPERATOR Norovirus 07/01/2023 07/01/2023 07/15/2023 3:05 AM CDT COVID: Suspected 12/29/2023 12/29/2023 12/29/2023 11:35 AM CDT documented as of this encounter Care Teams Lokie Engineer Relationship Specialty Start Date End Date Derek Valderrama MD PCP - General 01/10/14 06/13/22 Adelfo Shabazz MD [address] [place] [address] PCP - General Radiation Oncology 06/14/22 10/10/22 Josselin De Oliveira MD PhD [address] [facility] [address] [place] [address] PCP - General Medical Oncology 10/11/22 01/10/23 Derek Valderrama MD [address] [place] [address] PCP - General Internal Medicine 01/11/23 Tad Sanz MD [address] [facility] [place] [address] Referring Physician Obstetrics and Gynecology 03/26/19 Adam Tan MD [address] [facility] [address] [place] [address] Radiation Oncologist Radiation Oncology 02/11/20 Aft, Dalila Hickman MD PhD [address] [place] [address] Surgeon Surgical Oncology 02/11/20 Josselin De Oliveira MD PhD [address] [facility] [address] [place] [address] Medical Oncologist/Car Attendant Medical Oncology 02/13/20 Owen Dan NP [address] [place] [address] [address] Nurse Practitioner Nurse Practitioner 12/09/20 Hui Newton, SKYE [address] [place] [address] Nurse Navigator 08/17/22 08/23/22 Lisbet Kelley MD [address] [place] [address] Anesthesiologist Pain Management 01/07/23 documented as of this encounter
--- OUTSIDE RECORDS SUMMARY | 2024-06-08 15:43 | XMS_ITS | Patient Health Summary ---
Author Organization [facility] Address [address] [facility] [place] [address] Care Team Providers Care Compound Coating Machine Offbearer Name Role Phone Derek Valderrama MD Primary Care Provider [phone] Note from [facility],non-owned Affiliates and Associated Physician Practices is amultiple site organization consisting of ambulatory clinics and hospital sitesin [place], [place], [place] and [place]. This disclosure is being madepursuant to the Care Everywhere program and may not contain all information available regarding this patient. Last updated 18.[facility] [employer] Allergies * Morphine(Itching) * Penicillins(Itching) * Hydrocodone-Acetaminophen(Itching) [...] Comments Blood Pressure 110/78 05/12/2021 10:03 AM MACHINE OPERATOR REPLANTER Pulse 79 05/12/2021 10:03 AM MACHINE OPERATOR REPLANTER Temperature 37.1 C (98.8 F) 05/12/2021 10:03 AM MACHINE OPERATOR REPLANTER Respiratory Rate 16 05/12/2021 10:03 AM MACHINE OPERATOR REPLANTER Oxygen Saturation 98% 05/12/2021 10:03 AM MACHINE OPERATOR REPLANTER Inhaled Oxygen Concentration - - Weight 102.1 kg (225 lb) 05/12/2021 10:03 AM MACHINE OPERATOR REPLANTER Height 157.5 cm (5' 2 ) 05/12/2021 10:03 AM MACHINE OPERATOR REPLANTER Body Mass Index 41.15 05/12/2021 10:03 AM MACHINE OPERATOR REPLANTER Procedures * SARS-COV-2 PCR 2 DAY TAT(Performed 05/12/2021) Performed for Acute viral syndrome * COVID-19 SARS-COV-2 PCR QUAL ([facility])(Performed 05/12/2021) Performed for Acute viral syndrome * SARS-COV-2 (COVID-19) AG (AMB) POCT(Performed 05/12/2021) Performed for Acute viral syndrome * GROSS + MICRO EXAM(Performed 12/07/2007) Results * SARS-COV-2 PCR 2 DAY TAT (05/12/2021 10:28 AM MACHINE OPERATOR REPLANTER) SARS-CoV-2 PCR 2 DAY TAT Performed [facility] INSURANCE BILL 05/12/2021 10:2 8 AM MACHINE OPERATOR REPLANTER 05/13/2021 Narrative Resulting Agency Comment Lab Testing performed at: [facility] [address] [facility] [phone] Brittanie Zenobia PUBLIC RELATIONS DIRECTOR-GIS SPECIALIST LAB - MICROBIOL OGY ORDERABLES [facility] INSURANCE BILL [address] [place] [address] * COVID-19 SARS-COV-2 PCR QUAL ([facility]) (05/12/2021 10:28 AM MACHINE OPERATOR REPLANTER) SARS-CoV-2 LC Not Detected Not Detected [facility] INSURANCE BILL Comment: This nucleic acid amplification test was developed and its performance characteristics determined by [employer]. Nucleic acid amplification tests include RT-PCR and [...] NASOPHARYNGEAL STRUCTURE / Unknown 05/12/2021 10:28 AM MACHINE OPERATOR REPLANTER 05/13/2021 Narrative Resulting Agency Comment Lab Testing performed at: [facility] [address] [facility] [address] [place] [id number] Brittanie RENE LAB - MICROBIOL OGY ORDERABLES [facility] INSURANCE BILL [address] [place] [address] * SARS-COV-2 (COVID-19) AG (AMB) POCT (05/12/2021 10:24 AM MACHINE OPERATOR REPLANTER) Pathologist [facility] SARS-CoV-2 Ag Negative Negative Lot # [id number] Expiration Date 02/15/22 Instrument Serial Number NA COVID Internal Control Acceptable Acceptable Microbiology SPECIMEN FROM [employer] / Unknown 05/12/2021 10:24 AM MACHINE OPERATOR REPLANTER Brittanie Martins APRN-CNP - 05/12/2021 10:25 AM MACHINE OPERATOR REPLANTER Negative results should be treated as presumptive [...] assay are available upon request. Brittanie Fregoso PUBLIC RELATIONS DIRECTOR-GIS SPECIALIST LAB - POINT OF CARE ORDERABLES * [...] reveals no evidence of infarct or necrosis. Railroad Firer sections of the specimen are submitted as follows Cassette A membranes and umbilical cord. Cassettes B and C Railroad Firer sections of placenta. CN mata Microscopic Exam [...] membranes with no pathologic changes CN/na GM Cuff Cutter na Pathologist Melani Chowdhury M.D. Snomed. 12/11/2007 1240 <1> CPT code 17789 MISCELLANEOUS SAMPLES / Unknown 12/07/2007 5:00 PM CDT 12/08/2007 5:40 AM CDT Historical Provider LAB - PATHOLOGY/C YTOLOGY ORDERABLES Care Teams Compound Coating Machine Offbearer Relationship Specialty Start Date End Date Derek Valderrama MD [address] [place] [address] PCP - General Internal Medicine 05/12/21
--- OUTSIDE RECORDS SUMMARY | 2024-06-08 15:43 | XMS_ITS | Encounter Summary ---
Author Organization [facility] Address [address] [place] [address] Phone Care Team Providers Care Service Station Attendant Name Role Phone Tad Sanz MD Unavailable [phone] Adam Tan MD Unavailable Aft, Dalila Hickman MD PhD Unavailable Alvino, Josselin Jeffrey MD PhD Unavailable Owen Dan HAND CROCHETER Unavailable [phone] Lisbet Kelley MD Unavailable Derek Valderrama MD Primary Care Provider [phone] Encounter Details Date Type Department Care Team (Late st Contact Info) Description 12/27/2023 Orders Only [facility] Oncology [address] [facility] 7th [place] [address] [place] [address] Josselin De Oliveira MD PhD [address] [facility] [address] [place] [address] Social History Tobacco Use Types Packs/Day Years Used Date Smoking Tobacco: Former Cigarettes Q uit: 03/05/2020 Smokeless Tobacco: Never Alcohol Use Standard Drinks/Week Comments Yes 2 (1 standard drink = 0.6 oz pur e alcohol) [facility] Utilities Answer Date Recorded In the [...] How often do you attend chur or pentecostal services? Patient unable to answer 12/30/2023 Do you belong to any clubs o r organizations such as sabianist groups, unions, fraternal or athletic groups, or [...] place to sleep or slept in a residential (including now)? No 02/09/2023 Housing Stability Vital [...] any time in the past 12 m [facility], were you homeless or living in a residential (including now)? Patient unable to answer 12/30/2023 Personal Safety Answer Date Recorded Have you ever been in or are you currently in a harmful physical or emotional relationship or is someone making you feel afraid or unsafe? Denies 12/29/2023 Comments No Sex and Gender Information Value Date Recorded Sex Assigned at Not on file Legal Sex Female 2:49 AM INTERNAL MEDICINE VETERINARY TECHNICIAN Gender Identity Female 06/06/2022 9:23 PM INTERNAL MEDICINE VETERINARY TECHNICIAN Sexual Orientation Not on file documented as [...] lifestyle strategies and compensatory methods as needed [facility] Chronic Pain Care Plan Chronic Care [...] documented as of this encounter Care Teams Service Station Attendant Relationship Specialty Start Date End Date Derek Valderrama MD [address] [place] [address] DR ADAMES [address] [place] [address] PCP - General Internal Medicine 01/11/23 Tad Sanz MD [address] [place] [address] Referring Physician Obstetrics and Gynecology 03/26/19 Adam Tan MD [address] [facility] [address] [place] [address] Radiation Oncologist Radiation Oncology 02/11/20 AftDalila MD PhD [address] [facility] [place] [address] Surgeon Surgical Oncology 02/11/20 Josselin De Oliveira MD PhD [address] [facility] [address] [place] [address] Medical Oncologist/Sleep Lab Technician Medical Oncology 02/13/20 Owen Dan NP [address] [place] [address] [place] [address] Nurse Practitioner Nurse Practitioner 12/09/20 Lisbet Kelley MD [address] [place] [address] [place] [address] Anesthesiologist Pain Management 01/07/23 documented as of this encounter
--- OUTSIDE RECORDS SUMMARY | 2024-06-08 15:43 | XMS_ITS | Encounter Summary ---
Author Organization [facility] Address [address] [place] [address] Care Team Providers Care Medical Staffing Coordinator Name Role Phone Bautista Valderrama MD Primary Care Provider Reason for Visit * Reason Onset Date Comments Preprocedure Call 05/03/2024 Patient schedu led for liver bx, check in at 0930. NPO after 0500. Needs a tow driver. Meds with sips of water. Will take last dose of Eliquis on 05/06. All questions were answered and patient voiced understanding. Encounter Details Date Type Department Care Team (Late st Contact Info) Description 05/03/2024 Telephone [facility] Interventional Radiology [address] [place] [address] Yanet Sloan, RN Preprocedure Call (Patient scheduled for liver bx, check in at 0930. NPO after 0500. Needs a tow driver. Meds with sips of water. Will [...] Sex Assigned at Female 05/09/2024 9:43 AM FORENSIC PATHOLOGIST Legal Sex Female 5:53 PM FORENSIC PATHOLOGIST Gender Identity Not on file Sexual Orientation Not on file documented as of this encounter Plan of Treatment Not on file documented as of this encounter Visit Diagnoses Not on filedocumented in this encounter Additional Health Concerns Infection Onset Date Last Indicated Resolved Time COVID-19 Rule Out 05/14/2024 05/14/2024 05/14/2024 12:42 PM FORENSIC PATHOLOGIST documented as of this encounter Care Teams Medical Staffing Coordinator Relationship Specialty Start Date End Date Bautista Valderrama MD [address] [place] [address] PCP - General INTERNAL MEDICINE 05/12/22 documented as of this encounter
== END 2024-06-08 16:00 | disposition left against medical advice (07) ==
LOC: ANHED 15:41
PROVIDERS: PCP Internal Medicine
DX: R52 Pain, unspecified (principal)
CPT/HCPCS: 99199